=== PATIENT | male | born 1960 | race Caucasian/White ===

== ENCOUNTER 2016-06-18 11:40 | Inpatient (IN) | payer MEDICARE, OTHER ==
[~2016-06-18] VITALS: Ht 185.4 cm; Wt 81.5 kg
[2016-06-18] MEDS ORDERED: AMIL5TAB2 PO (11:54)
[2016-06-18] MEDS ORDERED: CLON0.5T4 PO (11:55)
[2016-06-18] MEDS ORDERED: ATOR10TA65 PO (11:55)
--- NOTE | 2016-06-18 11:58 | ERA ---
ER Documentation Chief Complaint Date/Time DATE: 06/18/16 TIME: 11:58 Chief Complaint Fainted HPI The patient is a 56-year-old male, presenting to the ER because of fainting episode, happened about 30 minutes prior to arrival. He did not fall because he was caught on time. He denies similar symptoms previously, denies blurred vision, diplopia, facial pain, neck pain, chest pain, dyspnea, abdominal pain, vomiting, diarrhea, constipation. 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 Medications Home Meds Reported Medications Mineral Oil* (Fleet* Mineral Oil Enema) 133 Ml Oil, [address] NEEDED Y for CONSTIPATION, ENEMA 06/18/16 Bisacodyl* (Bisacodyl*) 10 Mg Supp, [address] Q24H Y for CONSTIPATION, SUPP 06/18/16 Magnesium Hydroxide* (Milk Of Magnesia*) 400 Mg/5 Ml Oral.susp, 30 ML PO DAILY Y for CONSTIPATION, ML 06/18/16 Docusate Sodium* (Docusate Sodium*) 100 Mg Capsule, 100 MG PO BID Y for ANXIETY , #60 CAP 06/18/16 Alprazolam* (Alprazolam*) 0.5 Mg Tablet, 0.5 MG PO BID Y for ANXIETY, TAB 06/18/16 Acetaminophen* (Acetaminophen*) 650 Mg Tablet, 650 MG PO Q4 Y for PAIN AND OR ELEVATED TEMP, #30 TAB 06/18/16 Polyethylene Glycol* (Polyethylene Glycol*) 17 Gm Powd.pack, 17 GM PO EVERY OTHER DAY, #30 PACKET 06/18/16 Omeprazole* (Omeprazole*) 20 Mg Capsule.dr, 20 MG PO AC BREAKFAST, #30 CAP 06/18/16 Fe Fumarate/Radha/FA/Bcomp,C (Nephron FA Tablet) 1 Each Tablet, 1 EACH PO DAILY, TAB 06/18/16 Levothyroxine Sodium* (Levothyroxine Sodium*) 100 Mcg Tablet, 100 MCG PO BEFORE BREAKFAST, #30 TAB 06/18/16 Hydrochlorothiazide* (Hydrochlorothiazide*) 25 Mg Tab, 25 MG PO DAILY, #30 TAB HOLD FOR SYSTOLIC SYSTOLIC BLOOD PRESSURE LESS THAN 100 06/18/16 Gabapentin* (Gabapentin*) 300 Mg Capsule, 300 MG PO DAILY, #60 CAP 06/18/16 Escitalopram Oxalate* (Escitalopram Oxalate*) 20 Mg Tablet, 20 MG PO DAILY, #30 TAB 06/18/16 Docusate Sodium* (Docusate Sodium*) 100 Mg Capsule, 100 MG PO BID, #60 CAP 06/18/16 Clozapine* (Clozaril*) 100 Mg Tab, 400 MG PO QHS, TAB 06/18/16 Clozapine* (Clozaril*) 25 Mg Tab, 300 MG PO PC LUNCH, TAB 06/18/16 Clozapine* (Clozaril*) 25 Mg Tab, 225 MG PO QAM, TAB 06/18/16 Clonazepam* (Clonazepam*) 0.5 Mg Tablet, 0.25 MG PO TID Y for ANXIETY, TAB 06/18/16 Atorvastatin Calcium (Atorvastatin Calcium) 10 Mg Tablet, 10 MG PO QHS, #30 TAB 06/18/16 Amiloride Hcl* (Amiloride Hcl*) 5 Mg Tablet, 10 MG PO DAILY, #60 TAB 06/18/16 Allergies Allergies: Coded Allergies: No Known Allergy (Unverified , 06/18/16) Physical Exam Vitals Vital Signs Date Time Temp Pulse Resp B/P Pulse Ox O2 Delivery O2 Flow Rate FiO2 06/18/16 16:30 97.9 89 17 132/75 100 Room Air 06/18/16 14:30 97.9 92 16 130/73 100 Room Air 06/18/16 13:55 111/65 103/58 06/18/16 12:30 98.5 87 20 103/59 100 Room Air 06/18/16 11:43 98.5 91 20 101/71 98 Physical Exam Const: No acute distress. Head: Atraumatic. Eyes: Normal Conjunctiva. ENT: Normal External Ears, Nose and Mouth. Neck: Full range of motion. No meningismus. Resp: Clear to auscultation bilaterally. Cardio: Regular rate and rhythm, no murmurs. Abd: Soft, non distended, normal bowel sounds, non tender. Skin: No petechiae or rashes. Back: No midline or flank tenderness. Ext: No cyanosis, or edema. Neur: Awake and alert. No focal deficit Psych: Normal Mood and Affect. Result Diagram: 06/18/16 1300 06/18/16 1245 Results 24 hrs Laboratory Tests Test 06/18/16 12:02 06/18/16 12:45 06/18/16 13:00 06/18/16 14:35 Bedside Glucose 112mg/dL Alanine Aminotransferase (ALT/SGPT) 33IU/L Albumin 4.6g/dl Albumin/Globulin Ratio 1.17 Alkaline Phosphatase 179IU/L Anion Gap 23 Aspartate Amino Transf (AST/SGOT) 19IU/L Blood Urea Nitrogen 72mg/dl Calcium Level 9.8mg/dl Carbon Dioxide Level 18mmol/L Chloride Level 104mmol/L Creatinine 5.11mg/dl Direct Bilirubin 0.00mg/dl Ethyl Alcohol Level < 10.0mg/dl Globulin 3.90g/dl Glucose Level 114mg/dl Indirect Bilirubin 0.0mg/dl Potassium Level 4.7mmol/L Sodium Level 140mmol/L Total Bilirubin 0.0mg/dl Total Protein 8.5g/dl Troponin I < 0.012ng/ml Activated Partial Thromboplast Time 36.5Sec Band Neutrophils % 6.0% Basophils # 0.310^3/ul Basophils % 1.0% Blood Morphology Comment Differential Comment MANUAL DIFF Eosinophils # 0.310^3/ul Eosinophils % 1.0% Hematocrit 38.5% Hemoglobin 12.7g/dl INR International Normalized Ratio 0.98 Lymphocytes # 2.010^3/ul Lymphocytes % 8.0% Mean Corpuscular Hemoglobin 29.2pg Mean Corpuscular Hemoglobin Concent 33.1g/dl Mean Corpuscular Volume 88.3fl Mean Platelet Volume 8.8fl Metamyelocytes # 0.5 Metamyelocytes % 2.0% Monocytes # 2.010^3/ul Monocytes % 8.0% Neutrophils # 18.610^3/ul Neutrophils % 74.0% Nucleated Red Blood Cells # 10^3/ul Nucleated Red Blood Cells % /100WBC Platelet Count 08795^3/UL Prothrombin Time 13.0Sec Prothrombin Time Ratio 1.0 Red Blood Count 4.3610^6/ul Red Cell Distribution Width 15.5% White Blood Count 25.110^3/ul Lactic Acid Level 1.9mmol/L Test 06/18/16 15:49 06/18/16 15:50 06/18/16 15:55 06/18/16 17:50 Bedside Urine Blood Negative Bedside Urine Glucose (UA) Negative Bedside Urine Ketones (LAB) Negative Bedside Urine Leukocyte Esterase (L Trace Bedside Urine Nitrite (LAB) Positive Bedside Urine Protein (LAB) 1+ Bedside Urine pH (LAB) 8.5 Urine Amphetamines Screen NEGATIVE Urine Barbiturates NEGATIVE Urine Benzodiazepines Screen NEGATIVE Urine Cannabinoids NEGATIVE Urine Cocaine Screen NEGATIVE Urine Opiates Screen NEGATIVE Urine Bacteria MANY Urine Bilirubin NEGATIVE Urine Clarity CLOUDY Urine Color LT. YELLOW Urine Glucose NEGATIVE% Urine Hemoglobin NEGATIVE Urine Ketones NEGATIVE Urine Leukocyte Esterase 1+ Urine Microscopic RBC 2-5 (1+)/HPF Urine Microscopic WBC 5-10/HPF Urine Nitrite POSITIVE Urine Specific [place] 1.010 Urine Total Protein TRACE Urine Transitional Epithelial Cells FEW Urine Urobilinogen 0.2 E.U./dL Urine pH 7.5 Lactic Acid Level 1.4mmol/L Current Medications Medications (Trade) Dose Ordered Sig/Maria Elena Route PRN Reason Start Time Stop Time Status Last Admin Dose Admin Vancomycin HCl 250 ml @ 125 mls/hr ONCE IVPB 06/18/16 14:30 06/18/16 16:29 DC 06/18/16 15:19 Piperacillin Sod/ Tazobactam Sod 50 ml @ 100 mls/hr ONCE ONCE IVPB 06/18/16 14:30 06/18/16 14:59 DC 06/18/16 15:03 Sodium Chloride (1/2 NS) 1,000 ml @ 175 mls/hr Q5H43M IV 06/18/16 17:37 UNV IV Flush (NS 3 ml) 3 ml PER PROTOCOL IV 06/18/16 18:00 UNV Ondansetron HCl (Zofran Inj) 4 mg Q6H PRN IV NAUSEA AND/OR VOMITING 06/18/16 18:00 UNV Acetaminophen (Tylenol Tab) 650 mg Q6H PRN PO PAIN LEVEL 1-3 OR FEVER 06/18/16 18:00 UNV Acetaminophen/ Hydrocodone Bitart ([place] (5/325)) 1 tab Q6H PRN PO MODERATE PAIN LEVEL 4-6 06/18/16 18:00 UNV Morphine Sulfate (morphine) 2 mg Q4H PRN IV SEVERE PAIN LEVEL 7-10 06/18/16 18:00 UNV Docusate Sodium (Colace) 200 mg Q12H PO 06/18/16 18:00 UNV Magnesium Hydroxide (Milk Of Mag) 30 ml DAILY PRN PO CONSTIPATION 06/18/16 18:00 UNV Zolpidem Tartrate (Ambien) 5 mg QHS PRN PO SLEEP 06/18/16 18:00 UNV Alprazolam (Xanax) 0.5 mg BID PRN PO ANXIETY 06/18/16 18:00 UNV Atorvastatin Calcium (Lipitor) 10 mg QHS PO 06/18/16 21:00 UNV Bisacodyl (Dulcolax Supp) [address] CONSTIPATION 06/18/16 18:00 UNV Clonazepam (Klonopin) 0.25 mg TID PRN PO ANXIETY 06/18/16 18:00 UNV Clozapine (Clozaril) 225 mg QAM PO 06/19/16 09:00 UNV Clozapine (Clozaril) 300 mg PC LUNCH PO 06/19/16 13:00 UNV Clozapine (Clozaril) 400 mg QHS PO 06/18/16 21:00 UNV Escitalopram Oxalate (Lexapro) 20 mg DAILY PO 06/19/16 09:00 UNV Gabapentin (Neurontin) 300 mg DAILY PO 06/19/16 09:00 UNV Levothyroxine Sodium (Synthroid) 100 mcg BEFORE BREAKFAST PO 06/19/16 07:00 UNV Magnesium Hydroxide (Milk Of Mag) 30 ml DAILY PRN PO CONSTIPATION 06/18/16 18:00 UNV Mineral Oil (Fleet Mineral Oil Enema) [address] CONSTIPATION 06/18/16 18:00 UNV Polyethylene Glycol (Miralax) 17 gm DAILY PO 06/18/16 18:00 UNV Miscellaneous Information 1 each DAILY PO 06/19/16 09:00 UNV Miscellaneous Information 20 mg 20 mg AC BREAKFAST PO 06/19/16 07:00 UNV Ceftriaxone Sodium (Rocephin) 50 ml @ 100 mls/hr Q24H IVPB 06/18/16 18:00 UNV Procedures/MDM EKG: Read by emergency physician Rate/Rhythm: Normal Sinus Rhythm 87 beats per min QRS, ST, T-waves: No ST elevation, no T wave inversion, incomplete right bundle branch block, inferior Q waves Impression: Abnormal EKG [address] [place] [address] Radiology Main Line: [phone] DIAGNOSTIC IMAGING REPORT Patient: SHAWN MADRIGAL : 1960 Age: 56 Sex: M MR #: [id number] DOS: 06/18/16 1202 Ordering MD: LEONOR MELO MD Location: E/R Room/Bed: PROCEDURE: Chest Radiograph. CLINICAL INDICATION: Syncope TECHNIQUE: Single frontal chest radiograph. COMPARISON: None available FINDINGS: The cardiomediastinal silhouette is within normal limits. No infiltrate or effusion is seen. The bones are intact. IMPRESSION: 1. Unremarkable chest radiograph. RPTAT: KK .Charli Summers MD, MD Date Time Electronically viewed and signed by .Charli Summers MD, MD on 2015 12:36 .B/ CC: LEONOR MELO MD [place] [address] Radiology Main Line: [phone] DIAGNOSTIC IMAGING REPORT Patient: SHAWN MADRIGAL : 1960 Age: 56 Sex: M MR #: [id number] DOS: 06/18/16 1202 Ordering MD: LEONOR MELO MD Location: E/R Room/Bed: PROCEDURE: CT Brain without contrast. CLINICAL INDICATION: Neurologic deficit TECHNIQUE: A CT of the brain was performed on multidetector high-resolution CT scanner utilizing axial sections from the skull base through the vertex without contrast. DOSE: CTDI = 44 mGy and the DLP = 720 mGy-cm. COMPARISON: None available FINDINGS: No acute intracranial hemorrhage, significant mass effect or midline shift. Patchy hypoattenuation of the cerebral white matter is age indeterminate but may represent mild subacute to chronic microvascular ischemic changes. Prominence of the cortical sulci and ventricles are related to mild cerebral volume loss. No significant opacification of the visualized paranasal sinuses or mastoids. IMPRESSION: No acute intracranial hemorrhage or significant mass effect. Mild subacute to chronic microvascular disease and mild volume loss. RPTAT: AA .Josiah Martin MD, Date Time Electronically viewed and signed by .Josiah Martin MD, on 06/18/2016 12:50 .T/ CC: LEONOR MELO MD MEDICAL MAKING DECISION: The patient is a 56-year-old male, presenting with acute syncope, acute cystitis, acute urinary retention. He voided then had a Samuel catheter that drained out about 450 mL of urine with good response. He was treated with vancomycin IV, Zosyn IV. Accu-Chek upon arrival was 112. The differential diagnoses considered include but are not limited to bradyarrhythmia , tachyarrhythmias, aortic outflow obstruction, neurogenic including subarachnoid hemorrhage, orthostatic hypotension and all of its causes, hypoglycemia, dysautonomia, medications , pyelonephritis, pneumonia, cystitis. Departure Diagnosis: Primary Impression: Syncope Additional Impressions: Acute cystitis Acute urinary retention Anemia Condition: Stable Comments I discussed the findings with the patient. I discussed the patient with the on- call physician Dr. Meyers who was made aware of the lab, the treatment, the patient condition. The patient is admitted to telemetry at 2:20 PM LEONOR MELO MD Jun 18, 2016 11:58
[2016-06-18] MEDS ORDERED: CLZP100T PO (12:03)
[2016-06-18] MEDS ORDERED: CLOZ25TA23 PO ×2 (12:03)
[2016-06-18] MEDS ORDERED: DOCU-159 PO ×2 (12:07→12:14)
[2016-06-18] MEDS ORDERED: ESCI20TA38 PO (12:07)
[2016-06-18] MEDS ORDERED: GABA300C16 PO (12:08)
[2016-06-18] MEDS ORDERED: HYD25 PO (12:10)
[2016-06-18] MEDS ORDERED: LEVO100T87 PO (12:10)
[2016-06-18] MEDS ORDERED: OMEP20CA16 PO (12:11)
[2016-06-18] MEDS ORDERED: FE F1TAB7 PO (12:11)
[2016-06-18] MEDS ORDERED: POLY17PO3 PO (12:12)
[2016-06-18] MEDS ORDERED: ACET-2047 PO (12:13)
[2016-06-18] MEDS ORDERED: ALPR0.5T6 PO (12:13)
[2016-06-18] MEDS ORDERED: MAGN400O4 PO (12:15)
[2016-06-18] MEDS ORDERED: DULR PR (12:15)
[2016-06-18] MEDS ORDERED: FLEETOIL PR (12:16)
--- NOTE | 2016-06-18 12:36 | RADRPT ---
PROCEDURE: Chest Radiograph. CLINICAL INDICATION: Syncope TECHNIQUE: Single frontal chest radiograph. COMPARISON: None available FINDINGS: The cardiomediastinal silhouette is within normal limits. No infiltrate or effusion is seen. Th e bones are intact. IMPRESSION: 1. Unremarkable chest radiograph. RPTAT: KK .Charli Summers MD, Date Time Electronically viewed and signed by .Charli Summers MD, on 06/18/2016 12:36 .B/
--- NOTE | 2016-06-18 12:50 | RADRPT ---
PROCEDURE: CT Brain without contrast. CLINICAL INDICATION: Neurologic deficit TECHNIQUE: A CT of the brain was performed on multidetector high-resolution CT scanner utilizing a xial sections from the skull base through the vertex without contrast. DOSE: CTDI = 44 mGy and the DLP = 720 mGy-cm. COMPARISON: None available FINDINGS: No acute intracranial hemorrhage, significant mass effect or midline shift. Patchy hypoattenuation o f the cerebral white matter is age indeterminate but may represent mild subacute to chronic microvas cular ischemic changes. Prominence of the cortical sulci and ventricles are related to mild cerebra l volume loss. No significant opacification of the visualized paranasal sinuses or mastoids. IMPRESSION: No acute intracranial hemorrhage or significant mass effect. Mild subacute to chronic microvascular disease and mild volume loss. RPTAT: AA .Josiah Martin MD, Date Time Electronically viewed and signed by .Josiah Martin MD, MD on 06/18/2016 12:50 .T/
[2016-06-18 13:15] LABS: HEMATOCRIT 38.5 % (42.0-52.0); HEMOGLOBIN 12.7 g/dl (14.0-18.0); MEAN CORPUSCULAR HEMOGLOBIN 29.2 pg (29.0-33.0); MEAN CORPUSCULAR HGB CONC 33.1 g/dl (32.0-37.0); MEAN CORPUSCULAR VOLUME 88.3 fl (82.0-101.0); MEAN PLATELET VOLUME 8.8 fl (7.4-10.4); PLATELET COUNT 253 10^3/UL (140-440); RED BLOOD COUNT 4.36 10^6/ul (4.70-6.10); RED CELL DISTRIBUTION WIDTH 15.5 % (11.5-14.5); UNCORRECTED WBC 25.1 10^3/ul (4.8-10.8); WHITE BLOOD COUNT 25.1 10^3/ul (4.8-10.8)
[2016-06-18 13:18] LABS: CONDITION 1; LH ANALYZER COMMENTS 1; SUSPECT 1
[2016-06-18 13:24] LABS: INR 0.98
[2016-06-18 13:24] LABS: ALBUMIN 4.6 g/dl (3.3-4.9); CHLORIDE 104 mmol/L (97-110)
[2016-06-18 13:25] LABS: PARTIAL THROMBOPLASTIN TIME 36.5 Sec (25.0-35.0)
[2016-06-18 13:25] LABS: POTASSIUM 4.7 mmol/L (3.5-5.1); SODIUM 140 mmol/L (135-144)
[2016-06-18 13:27] LABS: ALBUMIN/GLOBULIN RATIO 1.17; ANION GAP 23 (8-16); ASPARTATE AMINO TRANSFERASE 19 IU/L (15-46); CARBON DIOXIDE 18 mmol/L (21-31); CREATININE 5.11 mg/dl (0.61-1.24); TOTAL PROTEIN 8.5 g/dl (6.1-8.1)
[2016-06-18 13:28] LABS: ALANINE AMINOTRANSFERASE 33 IU/L (13-69); ALKALINE PHOSPHATASE 179 IU/L (42-121); BLOOD UREA NITROGEN 72 mg/dl (7-20); CALCIUM 9.8 mg/dl (8.4-10.2); GLUCOSE 114 mg/dl (70-220)
[2016-06-18 13:32] LABS: BASOPHIL # 0.3 10^3/ul (0.0-0.1); EOSINOPHILS # 0.3 10^3/ul (0.0-0.5); NEUTROPHIL # 18.6 10^3/ul (1.6-7.5)
[2016-06-18 13:35] LABS: ETHANOL < 10.0 mg/dl
[2016-06-18 13:41] LABS: TROPONIN-I < 0.012 ng/ml (0.00-0.12)
[2016-06-18] MEDS ORDERED: PIPER-TAZO 2.25 GM (PMX) 50 ML IVPB ONE (14:30)
[2016-06-18] MEDS ORDERED: VANCOMYCIN 1 GM (PMX) 250 ML IVPB SCH (14:30)
[2016-06-18 15:50] LABS: URINE BLOOD (Dip) POC Negative (NEGATIVE)
[2016-06-18 16:02] LABS: ADD UMIC YES; URINE BILIRUBIN (Dip) NEGATIVE (NEGATIVE); URINE BLOOD (Dip) NEGATIVE (NEGATIVE); URINE COLOR LT. YELLOW (YELLOW); URINE GLUCOSE (Dip) NEGATIVE (NEGATIVE); URINE KETONES (Dip) NEGATIVE (NEGATIVE); URINE LEUKOCYTE ESTERASE (Dip) 1+ (NEGATIVE); URINE NITRITE (Dip) POSITIVE (NEGATIVE); URINE TOTAL PROTEIN (Dip) TRACE (NEGATIVE); URINE UROBILINOGEN (Dip) 0.2 E.U./dL (0.1-1.0)
[2016-06-18 16:16] LABS: BACTERIA,URINE MANY
[2016-06-18 16:17] LABS: TRANSITIONAL EPI CELLS,URINE FEW; URINE RBCS 2-5 (1+) /HPF (0)
[2016-06-18 16:24] LABS: BARBITURATES NEGATIVE (NEGATIVE); BENZODIAZEPINES NEGATIVE (NEGATIVE); CANNABINOIDS NEGATIVE (NEGATIVE); COCAINE NEGATIVE (NEGATIVE); OPIATES NEGATIVE (NEGATIVE)
[2016-06-18] MEDS ORDERED: ALPRAZOLAM 0.5 MG TAB PO PRN (18:00)
[2016-06-18] MEDS ORDERED: MAGNESIUM HYDROXIDE 30ML CUP PO PRN ×2 (18:00)
[2016-06-18] MEDS ORDERED: ACETAMINOPHEN 325 MG TAB PO PRN (18:00)
[2016-06-18] MEDS ORDERED: MINERAL OIL 133 ML ENEMA PR PRN (18:00)
[2016-06-18] MEDS ORDERED: NACL 0.9% 3 ML SYG IV SCH (18:00)
[2016-06-18] MEDS ORDERED: ZOLPIDEM 5 MG TAB PO PRN (18:00)
[2016-06-18] MEDS ORDERED: clonAZEPAM 0.5 MG TAB PO PRN (18:00)
[2016-06-18] MEDS ORDERED: morphine 2 MG INJ IV PRN (18:00)
[2016-06-18] MEDS ORDERED: ONDANSETRON 4 MG INJ IV PRN (18:00)
[2016-06-18] MEDS ORDERED: HYDROCODONE/APAP (5/325) TAB PO PRN (18:00)
[2016-06-18] MEDS ORDERED: BISACODYL 10 MG SUPP PR PRN (18:00)
--- NOTE | 2016-06-18 18:57 | HP ---
DATE OF ADMISSION: 06/18/2016 CHIEF COMPLAINT: Syncope. HISTORY OF PRESENT ILLNESS: The patient is a 56-year-old male with history of schizophrenia who res ides in a board and care. The patient also has a history of hypertension, hypothyroidism and dyslip idemia. The patient presents with a syncopal episode at his board and care. He states that he was feeling dizzy prior to onset. He does state that he has a burning sensation when he urinates, is no t sure how long this has been going on for. Denies any history of syncope. The patient is somewhat of a poor historian, and part of his medical history was obtained from review of his home medicatio ns. The patient has no other complaints at this time. He denies any nausea, vomiting, fever, chill s, cough, chest pain or shortness of breath. PAST MEDICAL HISTORY: Hypertension, schizophrenia, dyslipidemia, hypothyroidism. PAST SURGICAL HISTORY: Denies. HOME MEDICATIONS: 1. Tylenol. 2. Xanax. 3. Amiloride. 4. Atorvastatin. 5. Clonazepam. 6. Clozaril (clozapine). 7. Colace. 8. Lexapro. 9. Gabapentin. 10. Hydrochlorothiazide. 11. Synthroid. 12. Milk of magnesia. 13. Mineral oil. 14. Fleet enema. 15. Omeprazole. ALLERGIES: NO KNOWN DRUG ALLERGIES. FAMILY HISTORY: Denies. SOCIAL HISTORY: Denies any alcohol, tobacco or drug abuse. REVIEW OF SYSTEMS: A 12-point review of systems difficult to obtain but appears to be negative. PHYSICAL EXAMINATION: VITAL SIGNS: Temperature is 98.5, pulse 87, respiratory rate is 20, BP is 111/65, saturation 100% o n room air. GENERAL: No acute distress, alert. HEENT: Normocephalic, atraumatic. Pupils equal, round, reactive to light. CHEST: Clear to auscultation. CARDIOVASCULAR: Regular rate, rhythm. ABDOMEN: Nondistended, nontender, soft. EXTREMITIES: No clubbing, cyanosis, edema. LABORATORIES: White count is 25.1, hemoglobin is 12.7, platelets are 263. Chemistry: Sodium is 14 0, potassium is 4.7, chloride is 104, carbon dioxide is 18, anion gap is 23, BUN 72, creatinine is 5 .11, glucose is 114, alkaline phosphatase is 179. INR is 0.98. UA: Cloudy, positive nitrites, 1+ leukocyte esterase, 5 to 10 WBCs. Toxicology is negative. DIAGNOSTICS: Chest x-ray shows unremarkable chest. Brain CT shows no acute intracranial process. There is mild subacute chronic microvascular disease with mild volume loss. ASSESSMENT AND PLAN: 1. Sepsis secondary to urinary tract infection. Will treat empirically with Rocephin IV. Will obt ain a urine culture. 2. Syncope, likely secondary to dehydration and sepsis. Will treat with IV fluids and antibiotics. Will also obtain a carotid ultrasound and 2D echo to rule out cardiac and vascular etiologies of t he syncopal episode. 3. Acute versus chronic kidney disease. The patient's baseline renal function is not known. The p atient may have prerenal acute kidney injury as he does appear severely dehydrated. Will treat with IV fluids and monitor in the a.m. If creatinine continues to be elevated with suspicion for altern ate causes of his acute kidney injury, will consult Nephrology. 4. History of schizophrenia. Continue home medications. 5. History of hypertension. Will hold the patient's home antihypertensives as his blood pressure i s low at this time. Of note, his hypotension may also be a part of the etiology for his syncopal ep isode. 6. Prophylaxis. SCDs. Dictated By: SIENNA RICHARDSON/IVONE Conf#: [id number] DID#: [id number]
--- NOTE | 2016-06-18 19:36 | RADRPT ---
PROCEDURE: US Carotids. CLINICAL INDICATION: Syncope. TECHNIQUE: Multiple sonographic of the carotid arteries were obtained utilizing adkins scale imaging . Color and Doppler imaging was performed. The images were reviewed on a PACS workstation. COMPARISON: None. FINDINGS: Location:Right (cm/s)Left (cm/s) [id number] Prox ICA74 75 Mid [id number] 75 Dist ICA93 53 ECA66 57 ICA/CCA:1.6 1.0 Antegrade flow is seen within the vertebral arteries, bilaterally. There is no substantial plaque. IMPRESSION: No evidence of hemodynamically significant stenosis or occlusion of the bilateral extracranial carot id arteries. RPTAT: HLST .Elizabet Siu MD, Date Time Electronically viewed and signed by .Elizabet Siu MD, on 06/18/2016 19:35 .T/
[2016-06-18] MEDS: CEFTRIAXONE 1 GM/50 ML (PMX) 50 ML IVPB SCH (19:51)
[2016-06-18] MEDS: SOD CHLORIDE 0.45% 1,000 ML IV SCH (19:52)
[2016-06-18] MEDS ORDERED: CLOZAPINE 25 MG TAB PO SCH (21:00)
[2016-06-19] VITALS (13 sets, daily range): BP systolic 108–116; BP diastolic 64–76; PULSE 88–91; RESP 18–22; TEMP 98.1; Ht 185.4 cm; Wt 81.5 kg
[2016-06-19] MEDS: DOCUSATE SODIUM 100 MG CAP PO SCH ×3 (00:18→17:40)
[2016-06-19] MEDS: POLYETHYLENE GLYCOL 17 GM PACKET PO SCH ×2 (00:18→08:51)
[2016-06-19] MEDS: ATORVASTATIN 10 MG TAB PO SCH ×2 (00:18→21:22)
[2016-06-19] MEDS: SOD CHLORIDE 0.45% 1,000 ML IV SCH ×4 (00:19→21:22)
[2016-06-19] MEDS ORDERED: NON-FORMULARY/PATIENT OWN MED (Omeprazole* 20 MG) PO SCH (07:00)
[2016-06-19 07:35] LABS: BASOPHIL # 0.1 10^3/ul (0.0-0.1); BASOPHILS % 0.3 % (0.0-2.0); EOSINOPHILS # 0.3 10^3/ul (0.0-0.5); EOSINOPHILS % 1.7 % (0.0-7.0); HEMATOCRIT 37.4 % (42.0-52.0); HEMOGLOBIN 12.3 g/dl (14.0-18.0); LYMPHOCYTES # 2.9 10^3/ul (0.8-2.9); MEAN CORPUSCULAR HEMOGLOBIN 29.2 pg (29.0-33.0); MEAN CORPUSCULAR VOLUME 88.5 fl (82.0-101.0); MEAN PLATELET VOLUME 9.5 fl (7.4-10.4); MONOCYTE # 0.9 10^3/ul (0.3-0.9); MONOCYTES % 4.4 % (0.0-11.0); NEUTROPHIL # 15.4 10^3/ul (1.6-7.5); NEUTROPHILS % 78.6 % (39.0-77.0); PLATELET COUNT 256 10^3/UL (140-440); RED BLOOD COUNT 4.22 10^6/ul (4.70-6.10); RED CELL DISTRIBUTION WIDTH 15.3 % (11.5-14.5); UNCORRECTED WBC 19.5 10^3/ul (4.8-10.8); WHITE BLOOD COUNT 19.5 10^3/ul (4.8-10.8)
[2016-06-19 07:45] LABS: ALBUMIN 4.3 g/dl (3.3-4.9); CONDITION 1; LH ANALYZER COMMENTS 1
[2016-06-19 07:46] LABS: POTASSIUM 4.4 mmol/L (3.5-5.1)
[2016-06-19 07:47] LABS: CREATININE 4.39 mg/dl (0.61-1.24)
[2016-06-19 07:48] LABS: ALBUMIN/GLOBULIN RATIO 1.13; PHOSPHORUS 6.1 mg/dl (2.5-4.9); TOTAL PROTEIN 8.1 g/dl (6.1-8.1)
[2016-06-19] MEDS: PANTOPRAZOLE (EC) 40 MG TAB PO SCH (07:48)
[2016-06-19 07:49] LABS: MAGNESIUM 2.7 mg/dl (1.7-2.5)
[2016-06-19] MEDS: LEVOTHYROXINE 100 MCG TAB PO SCH (07:49)
[2016-06-19] MEDS: GABAPENTIN 300 MG CAP PO SCH (08:51)
[2016-06-19] MEDS: ESCITALOPRAM 10 MG TAB PO SCH (08:52)
[2016-06-19] MEDS ORDERED: CLOZAPINE 25 MG TAB PO SCH ×2 (09:00→13:00)
[2016-06-19] MEDS: CLOZAPINE 100 MG TABLET PO SCH ×2 (13:13→23:05)
--- NOTE | 2016-06-19 16:41 | PN ---
Date/Time of Note Date/Time of Note DATE: 06/19/16 TIME: 16:29 Assessment/Plan VTE Prophylaxis VTE Prophylaxis Intervention: SCD's Assessment/Plan Chief Complaint/Hosp Course 1. Sepsis secondary to urinary tract infection Continue to treat empirically with Rocephin IV Urine culture at this point shows gram-negative rods 2. Syncope likely secondary to hypotension and/or dehydration and/or sepsis Carotid ultrasound shows no significant stenosis, follow-up on 2D echo Continue IV fluids and antibiotics 3. Acute versus chronic kidney disease-improving Likely secondary to dehydration, hold p.o. diuretics and continue IV fluids Nephrology consultation 4. History of schizophrenia Continue home medications. 5. History of hypertension Will continue to hold the patient's home antihypertensives as his blood pressure is low at this time 6. Prophylaxis. SCDs Problems: Subjective 24 Hr Interval Summary Constitutional: no complaints Exam/Review of Systems Vital Signs Vitals Vital Signs Date Time Temp Pulse Resp B/P Pulse Ox O2 Delivery O2 Flow Rate FiO2 06/19/16 16:13 88 06/19/16 12:16 97.4 21 116/66 100 06/19/16 05:30 Room Air Exam Constitutional: alert Respiratory: clear to auscultation Cardiovascular: regular rate and rhythm Gastrointestinal: distended, soft Musculoskeletal: nl extremities to inspection Results Result Diagram: 06/19/16 0603 06/19/16 0603 Results 24 hrs Laboratory Tests Test 06/18/16 17:50 06/18/16 20:20 06/19/16 06:03 Lactic Acid Level 1.4 1.3 Alanine Aminotransferase (ALT/SGPT) 33 Albumin 4.3 Albumin/Globulin Ratio 1.13 Alkaline Phosphatase 164 H Anion Gap 20 H Aspartate Amino Transf (AST/SGOT) 23 Basophils # 0.1 Basophils % 0.3 Blood Morphology Comment Blood Urea Nitrogen 68 H Calcium Level 9.0 Carbon Dioxide Level 18 L Chloride Level 105 Creatinine 4.39 H Direct Bilirubin 0.00 Eosinophils # 0.3 Eosinophils % 1.7 Globulin 3.80 H Glucose Level 105 Hematocrit 37.4 L Hemoglobin 12.3 L Hemoglobin A1c 4.9 Indirect Bilirubin 0.0 Lymphocytes # 2.9 Lymphocytes % 15.0 Magnesium Level 2.7 H Mean Corpuscular Hemoglobin 29.2 Mean Corpuscular Hemoglobin Concent 33.0 Mean Corpuscular Volume 88.5 Mean Platelet Volume 9.5 Monocytes # 0.9 Monocytes % 4.4 Neutrophils # 15.4 H Neutrophils % 78.6 H Nucleated Red Blood Cells # 0.0 Nucleated Red Blood Cells % 0.0 Phosphorus Level 6.1 H Platelet Count 256 Potassium Level 4.4 Red Blood Count 4.22 L Red Cell Distribution Width 15.3 H Sodium Level 139 Total Bilirubin 0.0 L Total Protein 8.1 White Blood Count 19.5 #H Medications Medications Current Medications Sodium Chloride (1/2 NS) 1,000 ml @ 175 mls/hr Q5H43M IV Last administered on 06/19/16at 07:49; Admin Dose 175 MLS/HR; Start 06/18/16 at 17:37; Stop at 16:28 Ondansetron HCl (Zofran Inj) 4 mg Q6H PRN IV NAUSEA AND/OR VOMITING; Start at 18:00 Acetaminophen (Tylenol Tab) 650 mg Q6H PRN PO PAIN LEVEL 1-3 OR FEVER; Start 06/18/16 at 18:00 Acetaminophen/ Hydrocodone Bitart ([place] (5/325)) 1 tab Q6H PRN PO MODERATE PAIN LEVEL 4-6; Start 06/18/16 at 18:00 Morphine Sulfate (morphine) 2 mg Q4H PRN IV SEVERE PAIN LEVEL 7-10; Start at 18:00 Docusate Sodium (Colace) 200 mg Q12H PO Last administered on 06/19/16at 07:48; Admin Dose 200 MG; Start 06/18/16 at 18:00 Magnesium Hydroxide (Milk Of Mag) 30 ml DAILY PRN PO CONSTIPATION; Start 06/18 at 18:00 Zolpidem Tartrate (Ambien) 5 mg QHS PRN PO SLEEP; Start 06/18/16 at 18:00 Alprazolam (Xanax) 0.5 mg BID PRN PO ANXIETY; Start 06/18/16 at 18:00 Atorvastatin Calcium (Lipitor) 10 mg QHS PO Last administered on 06/19/16at 00: 18; Admin Dose 10 MG; Start 06/18/16 at 21:00 Bisacodyl (Dulcolax Supp) 10 mg Q24H PRN [place] CONSTIPATION; Start 06/18/16 at 18 :00 Clonazepam (Klonopin) 0.25 mg TID PRN PO ANXIETY; Start 06/18/16 at 18:00 Escitalopram Oxalate (Lexapro) 20 mg DAILY PO Last administered on 06/19/16at 08:52; Admin Dose 20 MG; Start 06/19/16 at 09:00 Gabapentin (Neurontin) 300 mg DAILY PO Last administered on 06/19/16at 08:51; Admin Dose 300 MG; Start 06/19/16 at 09:00 Magnesium Hydroxide (Milk Of Mag) 30 ml DAILY PRN PO CONSTIPATION; Start 06/18 at 18:00 Mineral Oil (Fleet Mineral Oil Enema) 133 ml DAILY PRN [place] CONSTIPATION; Start 06/18/16 at 18:00 Polyethylene Glycol (Miralax) 17 gm DAILY PO Last administered on 06/19/16at 08 :51; Admin Dose 17 GM; Start 06/18/16 at 18:00 Multivit/Ca Carb/ B Cmplx/FA/Prenat 1 tab 1 tab DAILY PO ; Start 06/19/16 at 15 :00 Ceftriaxone Sodium (Rocephin) 50 ml @ 100 mls/hr Q24H IVPB Last administered on 06/18/16at 19:51; Admin Dose 100 MLS/HR; Start 06/18/16 at 18:00 Pantoprazole (Protonix Tab) 40 mg DAILY@06 PO Last administered on 06/19/16at 07:48; Admin Dose 40 MG; Start 06/19/16 at 06:00 Clozapine (Clozaril) 400 mg QHS PO ; Start 06/18/16 at 21:00; Status Future hold Clozapine (Clozaril) 225 mg QAM PO ; Start 06/20/16 at 09:00 Influenza Virus Vaccine (Fluzone) 0.5 ml ONCE ONCE IM* ; Start 06/20/16 at 09: 00; Stop 06/20/16 at 09:01 SIENNA COTTO Jun 19, 2016 16:41
[2016-06-19] MEDS: MULTIVIT/CA CARB/B CMPLX/FA TAB PO SCH (17:40)
[2016-06-19] MEDS: CEFTRIAXONE 1 GM/50 ML (PMX) 50 ML IVPB SCH (17:46)
[2016-06-20] VITALS (14 sets, daily range): BP systolic 62–116; BP diastolic 28–71; PULSE 86–97; RESP 20–21
[2016-06-20] MEDS: SOD CHLORIDE 0.45% 1,000 ML IV SCH (03:00)
--- NOTE | 2016-06-20 03:31 | RADRPT ---
PROCEDURE: ULTRASOUND RETROPERITONEUM CLINICAL INDICATION: 56-year-old male with acute renal insufficiency. TECHNIQUE: Multiple sonographic images of the retroperitoneum were obtained. The images were revi ewed on a PACS workstation. COMPARISON: None. FINDINGS: The kidneys are diffusely heterogeneous. The right kidney measures 10.8 x 6.1 x 5.0 cm. The left kid constantino measures 10.5 x 5.9 x 4.6 cm. There are small calculi within the kidneys bilaterally. There is a small right mid renal cyst measuring 9 x 7 mm. There is mild left-sided hydronephrosis. The bladd er is without internal echoes or shadowing stones. IMPRESSION: 1. Mild left-sided hydronephrosis. 2. Small bilateral renal calculi. 3. Right mid renal cyst. .Demetrio Peterson MD, Date Time Electronically viewed and signed by .Demetrio Peterson MD, on 06/20/2016 03:30 .M/
[2016-06-20] MEDS: LEVOTHYROXINE 100 MCG TAB PO SCH (06:21)
[2016-06-20] MEDS: PANTOPRAZOLE (EC) 40 MG TAB PO SCH (06:21)
[2016-06-20] MEDS: DOCUSATE SODIUM 100 MG CAP PO SCH ×2 (06:22→18:15)
--- NOTE | 2016-06-20 06:36 | CONS ---
DATE OF ADMISSION: 06/18/2016 DATE OF CONSULTATION: 06/19/2016 TYPE OF CONSULTATION: Nephrology. REASON FOR CONSULTATION: Acute kidney injury. REQUESTING PHYSICIAN: Fabio Kirkland MD HISTORY OF PRESENT ILLNESS: This is a 56-year-old male with past medical history of schizophrenia, history of hypertension, dyslipidemia, hypothyroidism who resides at a [facility] facility and c isatu into [facility] after having a syncopal episode. The patient's history begins several weeks ago when he has had persistent ongoing weight loss. The patient had weakness during this time with poor appetite. On day prior to admission, patient states he was feeling dizzy. He s tated also that he was having episodes of dysuria. The patient had a syncopal episode and was broug ht in by paramedics to the emergency room. Upon arrival to the emergency room, patient was noted to be hypotensive with systolic pressure in the low 100s. The patient had laboratory data drawn which showed a white count of 25,000, hemoglobin 12.7 as well as BUN 72, creatinine 5.1. Chest x-ray obt ained showed no acute findings. The patient ____ no acute findings. The patient's urinalysis ____. The patient was started on IV antibiotics, IV fluids and admitted onto telemetry for evaluation. While on telemetry, patient has been stable with no episodes or further reports of hemoptysis, hemat emesis, hematochezia. In terms in patient's renal function, patient states he has no previous history of renal failure or chronic kidney disease. The patient denies any recent rashes, denies any frothy urine, denies any _ ___. The patient does report taking diuretics including hydrochlorothiazide and ____. PAST MEDICAL HISTORY: As stated above. History of hypertension, history of schizophrenia, history of dyslipidemia, history of ____. Questionable history of diabetes insipidus per patient. PAST SURGICAL HISTORY: None. HOME MEDICATIONS: Reviewed. ALLERGIES: NO KNOWN DRUG ALLERGIES. FAMILY HISTORY: No family history ____. SOCIAL HISTORY: He doesn't drink, smoke or do drugs. REVIEW OF SYSTEMS: A 14-point review of systems was conducted. Pertinent positives stated in HPI, otherwise negative. PHYSICAL EXAMINATION: VITAL SIGNS: Blood pressure is 100/62, respirations 18, pulse ____, temperature 98.6. HEENT: Head is normocephalic. Pupils equal, reactive to light. The patient had temporal wasting. NECK: Supple. ABDOMEN: Soft, nontender to palpation. No rebound, guarding. EXTREMITIES: No clubbing, cyanosis or edema. DERMATOLOGIC: Positive for ____ the patient's face. NEUROLOGIC: No focal deficits ____ weakness. LABORATORY DATA: Sodium ____, potassium 4.4, chloride 105, bicarbonate 18, BUN ____, creatinine 4.3 9, ____ magnesium 2.7. White count 19.3, hemoglobin ____, hematocrit ____, platelet count is 257. Urinalysis shows 5 to 10 WBCs ____ positive nitrites. IMAGING STUDIES: Stated in HPI. ASSESSMENT AND PLAN: This is a 56-year-old male who presents to emergency department with acute kid constantino injury with ____ baseline creatinine. ____ secondary to volume depletion ____ acute kidney inju ry, hemodynamics. The patient's urinalysis shows no evidence of ____, positive epithelial cells whi ch can be seen in ____ injury. There is low suspicion for ____. Plan at this point is to get a ivett al ultrasound to rule out obstruction ____. Will continue current treatment plan of IV hydration, c ontinue IV antibiotics. Would also check ____, repeat urinalysis. Otherwise, continue ____ renally dose medications, avoid nephrotoxins. There is no immediate need for ____ replacement therapy at t his time. 2. ____ secondary to volume depletion ____ use, extensive. Continue current treatment plan, IV flu ids, IV antibiotics, monitor closely. 3. Anemia, likely of chronic disease. Continue to monitor H and H levels. 4. ____. Will check a ____ level. 5. Sepsis secondary to urinary tract infection. Continue current treatment plan. Continue IV flui ds, IV antibiotics, monitor closely. 6. Syncope. Etiology is likely secondary to volume depletion, sepsis. The patient's ____ CT scan is negative. ____ is pending. Continue current ____, continue ____, continue fluids. Follow up Cardiology. 7. History of schizophrenia. Continue current psychotropic medications. 8. History of hypertension. The patient currently hypotension. Continue to monitor. Thank you, Dr. Kirkland, for this interesting consultation. It will be a pleasure to follow patient with you throughout the hospital course. Dictated By: RADHAMES YIP/IVONE Conf#: [id number] DID#: [id number]
[2016-06-20 07:10] LABS: BASOPHIL # 0.1 10^3/ul (0.0-0.1); BASOPHILS % 0.8 % (0.0-2.0); EOSINOPHILS # 0.3 10^3/ul (0.0-0.5); EOSINOPHILS % 1.9 % (0.0-7.0); HEMOGLOBIN 11.4 g/dl (14.0-18.0); LYMPHOCYTES # 2.9 10^3/ul (0.8-2.9); LYMPHOCYTES % 16.3 % (15.0-51.0); MEAN CORPUSCULAR HEMOGLOBIN 29.5 pg (29.0-33.0); MEAN CORPUSCULAR HGB CONC 33.5 g/dl (32.0-37.0); MEAN CORPUSCULAR VOLUME 88.1 fl (82.0-101.0); MEAN PLATELET VOLUME 8.9 fl (7.4-10.4); MONOCYTES % 5.9 % (0.0-11.0); NEUTROPHIL # 13.2 10^3/ul (1.6-7.5); NEUTROPHILS % 75.1 % (39.0-77.0); PLATELET COUNT 227 10^3/UL (140-440); RED BLOOD COUNT 3.86 10^6/ul (4.70-6.10); RED CELL DISTRIBUTION WIDTH 15.1 % (11.5-14.5); UNCORRECTED WBC 17.5 10^3/ul (4.8-10.8); WHITE BLOOD COUNT 17.5 10^3/ul (4.8-10.8)
[2016-06-20 07:21] LABS: POTASSIUM 4.2 mmol/L (3.5-5.1)
[2016-06-20 07:23] LABS: CONDITION 1; LH ANALYZER COMMENTS 1
[2016-06-20 07:24] LABS: CREATININE 3.72 mg/dl (0.61-1.24)
[2016-06-20 07:24] LABS: ADD UMIC YES; URINE BILIRUBIN (Dip) NEGATIVE (NEGATIVE); URINE BLOOD (Dip) TRACE (NEGATIVE); URINE COLOR LT. YELLOW (YELLOW); URINE GLUCOSE (Dip) NEGATIVE (NEGATIVE); URINE KETONES (Dip) NEGATIVE (NEGATIVE); URINE LEUKOCYTE ESTERASE (Dip) 1+ (NEGATIVE); URINE NITRITE (Dip) NEGATIVE (NEGATIVE); URINE TOTAL PROTEIN (Dip) NEGATIVE (NEGATIVE); URINE UROBILINOGEN (Dip) 0.2 E.U./dL (0.1-1.0)
[2016-06-20 07:25] LABS: CALCIUM 8.2 mg/dl (8.4-10.2)
--- NOTE | 2016-06-20 07:36 | RADRPT ---
Echocardiogram Report Patient Name: SHAWN MADRIGAL Gender: Male Date: 1960 Study Date: 19-Jun-2016 [employer] Fab[employer]ator: Marilia Goodwin [facility] Location: 5567 Ref. Physician: SIENNA COTTO Quality: Technically Difficult Study Procedures: Transthoracic echocardiogram with complete 2D, M-Mode, and doppler examination. Indications: Syncope. 2D/M Mode Doppler Measurement Value Normal Ranges Measurement Value Normal Ranges LVIDd 2D 4.3 3.5 - 5.6 cm AV Peak Lux 0.9 m/sec LVIDs 2D 1.8 2.1 - 4.1 cm AV Peak PG 3.0 mmHg FS 2D 57.9 % LVOT Peak Lux 0.7 m/sec LVPWd 2D 0.8 0.6 - 1.1 cm LVOT Peak PG 2.0 mmHg IVSd 2D 0.8 0.6 - 1.1 cm MV E Peak Lux 0.5 m/sec IVS/LVPW 2D 1.0 MV A Peak Lux 0.6 m/sec AoR Diam 2D 3.1 2.0 - 3.7 cm MV E/A 0.8 LA/Ao 2D 1 0 - 1 MV Decel Time 151 msec EDV 2D 79.5 cm3 MV E/A 0.8 ESV 2D 5.9 cm3 TR Peak Lux 1.9 m/sec LA Dimen 2D 3.0 2.3 - 4.0 cm TR Peak PG 15.0 mmHg RVSP 23.0 mmHg Findings Left Ventricle: Normal left ventricular systolic function. Normal left ventricular cavity size. Normal left ventricular wall thickness. Ejection fraction is visually estimated at 60 %. Tissue Doppler/Mitral Doppler indices are consistent with impaired relaxation (Stage I diastolic dysfunction). Right Ventricle: Normal right ventricular size. Normal right ventricular systolic function. Left Atrium: The left atrium is normal in size. Right Atrium: The right atrium is normal in size. Mitral Valve: Mitral valve leaflets appear mildly thickened. Mild mitral annular calcification. Trace mitral regurgitation. Aortic Valve: No significant aortic stenosis or insufficiency. Aortic valve not well visualized. Tricuspid Valve: Tricuspid valve not well visualized. Estimated peak PA systolic pressure 23 mmHg. There is trace tricuspid regurgitation. Pulmonic Valve: Pulmonic valve not well visualized. Pericardium: Normal pericardium with no significant pericardial effusion. Aorta: Normal aortic root. IVC: The IVC is not well visualized. Pulmonary Artery: Normal pulmonary artery size. Conclusions 1.Normal left ventricular systolic function. Normal left ventricular cavity size. Normal left ventricular wall thickness. Ejection fraction is visually estimated at 60 %. Tissue Doppler/Mitral Doppler indices are consistent with impaired relaxation (Stage I diastolic dysfunction). 2.Mitral valve leaflets appear mildly thickened. Mild mitral annular calcification. Trace mitral regurgitation. 3.No significant aortic stenosis or insufficiency. Aortic valve not well visualized. 4.Tricuspid valve not well visualized. Estimated peak PA systolic pressure 23 mmHg. There is trace tricuspid regurgitation. 5.suboptimal study. Electronically Signed By: Chapito Castillo 20-Jun-2016 07:35:48 -0800 Patient Name: SHAWN MADRIGAL Study Date: 19-[id number]
[2016-06-20 07:53] LABS: URINE RBCS NONE SEEN /HPF (0)
[2016-06-20 08:02] LABS: MAGNESIUM 2.4 mg/dl (1.7-2.5)
[2016-06-20] MEDS: MULTIVIT/CA CARB/B CMPLX/FA TAB PO SCH (08:43)
[2016-06-20] MEDS: ESCITALOPRAM 10 MG TAB PO SCH (08:43)
[2016-06-20] MEDS: GABAPENTIN 300 MG CAP PO SCH (08:43)
[2016-06-20] MEDS: POLYETHYLENE GLYCOL 17 GM PACKET PO SCH (08:43)
[2016-06-20] MEDS: CLOZAPINE 100 MG TABLET PO SCH ×3 (08:44→22:33)
[2016-06-20] MEDS ORDERED: INFLUENZA VIRUS VACCINE 0.5 ML (DISPENSING) IM* ONE (09:00)
[2016-06-20] MEDS: SOD CHLORIDE 0.9% 1,000 ML IV SCH ×2 (12:08→22:39)
--- NOTE | 2016-06-20 12:15 | PN ---
DATE: SUBJECTIVE: The patient is stable, no acute events overnight. No fevers, chills, nausea, vomiting, no shortness of breath. OBJECTIVE: VITAL SIGNS: Blood pressure is 95/59, respiratory rate 21, pulse 93, temperature 98.0. HEENT: Head is normocephalic. NECK: Supple. HEART: Regular rate. LUNGS: Show diminished breath sounds at the base. ABDOMEN: Soft, nontender to palpation. No rebound or guarding. EXTREMITIES: Negative for clubbing, cyanosis, no edema. DERMATOLOGIC: No rashes. MUSCULOSKELETAL: No joint effusions. NEUROLOGIC: No change in exam. MEDICATIONS: The patient's medications have been reviewed. LABORATORY DATA: Shows a sodium 136, potassium 4.2, chloride 108, bicarbonate 16, BUN 59, creatinin e 3.72. White count 17.5, hemoglobin 11.4, hematocrit 34.0, platelet count is 227. Repeat urinalys is shows no active sediment, 1%. Renal ultrasound shows mild left-sided hydronephrosis, vinay l echogenicity, small bilateral renal calculi. ASSESSMENT AND PLAN: 1. Nonoliguric acute kidney injury with unknown baseline creatinine. Etiology is likely secondary to volume depletion, hemodynamics. The patient's urinalysis shows no evidence of active sediment, t herefore low suspicion for acute glomerulonephritis, vasculitis or interstitial nephritis. The jose eduardo ent's renal ultrasound shows no obstruction. There is mild left-sided hydronephrosis. At this poin t, continue current treatment plan. Continue IV fluids, IV antibiotics, continue supportive care, r enally dose all meds, avoid nephrotoxins. 2. Hypertension, likely secondary to volume depletion, sepsis. Continue current treatment plan. C ontinue IV fluids, IV antibiotics, monitor closely. 3. Anemia, likely of chronic disease. Continue to monitor hemoglobin and hematocrit levels. 4. Mineral bone disorder. Monitor calcium and phosphorus levels. 5. Sepsis secondary to urinary tract infection. Continue current antibiotic treatment. Continue I V fluids, monitor closely. 6. Syncope. Etiology is likely due to volume depletion and sepsis. Patient's CT scan of the head is negative for any acute pathology. Carotid Doppler ultrasound shows no significant hemodynamic, o bstruction. Continue current medical management. Continue to monitor on telemetry. 7. History of schizophrenia. Continue current psychotropic medication. 8. History of hypertension. The patient is now hypotensive. Continue to hold diuretic therapy. 9. Questionable history of diabetes insipidus. The patient's urine osmolarity is currently pending . Sodium levels have been within normal limits. We will monitor closely. Dictated By: RADHAMES RIVAS DO NR/IVONE Conf#: [id number] DID#: [id number] CC: CLAUDETTE MILLER MD;*[facility]*
--- NOTE | 2016-06-20 15:49 | PN ---
Date/Time of Note Date/Time of Note DATE: 06/20/16 TIME: 15:45 Assessment/Plan VTE Prophylaxis VTE Prophylaxis Intervention: SCD's Lines/Catheters [facility] [place] Assessment/Plan Chief Complaint/Hosp Course 1. Sepsis secondary to urinary tract infection from Morganella species Continue Rocephin IV per culture and sensitivity 2. Syncope likely secondary to hypotension and/or dehydration and/or sepsis Carotid ultrasound shows no significant stenosis, 2D echo shows no etiology for syncopal episode, normal EF is noted with stage I diastolic heart failure Continue IV fluids and antibiotics 3. Acute versus chronic kidney disease-improving Likely secondary to dehydration, hold p.o. diuretics and continue IV fluids Nephrology consultation appreciated 4. History of schizophrenia Continue home medications. 5. History of hypertension Will continue to hold the patient's home antihypertensives as his blood pressure is low at this time 6. Prophylaxis. SCDs Problems: Subjective 24 Hr Interval Summary Constitutional: no complaints Exam/Review of Systems Vital Signs Vitals Vital Signs Date Time Temp Pulse Resp B/P Pulse Ox O2 Delivery O2 Flow Rate FiO2 06/20/16 12:50 98.2 89 21 113/70 100 06/19/16 05:30 Room Air Intake and Output 06/19/16 06/19/16 06/20/16 14:59 22:59 06:59 Intake Total 360 ml 2440 ml 2320 ml Output Total 300 ml 2400 ml 2200 ml Balance 60 ml 40 ml 120 ml Exam Constitutional: alert Respiratory: clear to auscultation Cardiovascular: regular rate and rhythm Gastrointestinal: soft, No distended Musculoskeletal: nl extremities to inspection Results Result Diagram: 06/20/16 0607 06/20/16 0600 Results 24 hrs Laboratory Tests Test 06/20/16 05:00 06/20/16 06:00 06/20/16 06:07 Urine Bilirubin NEGATIVE Urine Clarity CLEAR Urine Color LT. YELLOW Urine Glucose NEGATIVE Urine Hemoglobin TRACE Urine Ketones NEGATIVE Urine Leukocyte Esterase 1+ H Urine Microscopic RBC NONE SEEN Urine Microscopic WBC 2-5 Urine Nitrite NEGATIVE Urine Osmolality 223 L Urine Random Creatinine 25.46 Urine Random Sodium 40 Urine Specific [place] 1.010 Urine Total Protein Urine Urobilinogen 0.2 E.U./dL Urine pH 6.0 Anion Gap 16 Blood Urea Nitrogen 59 H Calcium Level 8.2 L Carbon Dioxide Level 16 L Chloride Level 108 Creatinine 3.72 H Glucose Level 96 Potassium Level 4.2 Sodium Level 136 Basophils # 0.1 Basophils % 0.8 Blood Morphology Comment Eosinophils # 0.3 Eosinophils % 1.9 Hematocrit 34.0 L Hemoglobin 11.4 L Lymphocytes # 2.9 Lymphocytes % 16.3 Magnesium Level 2.4 Mean Corpuscular Hemoglobin 29.5 Mean Corpuscular Hemoglobin Concent 33.5 Mean Corpuscular Volume 88.1 Mean Platelet Volume 8.9 Monocytes # 1.0 H Monocytes % 5.9 Neutrophils # 13.2 H Neutrophils % 75.1 Nucleated Red Blood Cells # 0.0 Nucleated Red Blood Cells % 0.0 Phosphorus Level 5.0 H Platelet Count 227 Red Blood Count 3.86 L Red Cell Distribution Width 15.1 H White Blood Count 17.5 H Medications Medications Current Medications Ondansetron HCl (Zofran Inj) 4 mg Q6H PRN IV NAUSEA AND/OR VOMITING; Start at 18:00 Acetaminophen (Tylenol Tab) 650 mg Q6H PRN PO PAIN LEVEL 1-3 OR FEVER; Start 06/18/16 at 18:00 Acetaminophen/ Hydrocodone Bitart ([place] (5/325)) 1 tab Q6H PRN PO MODERATE PAIN LEVEL 4-6; Start 06/18/16 at 18:00 Morphine Sulfate (morphine) 2 mg Q4H PRN IV SEVERE PAIN LEVEL 7-10; Start at 18:00 Docusate Sodium (Colace) 200 mg Q12H PO Last administered on 06/20/16at 06:22; Admin Dose 200 MG; Start 06/18/16 at 18:00 Magnesium Hydroxide (Milk Of Mag) 30 ml DAILY PRN PO CONSTIPATION; Start 06/18 at 18:00 Zolpidem Tartrate (Ambien) 5 mg QHS PRN PO SLEEP; Start 06/18/16 at 18:00 Alprazolam (Xanax) 0.5 mg BID PRN PO ANXIETY; Start 06/18/16 at 18:00 Atorvastatin Calcium (Lipitor) 10 mg QHS PO Last administered on 06/19/16at 21: 22; Admin Dose 10 MG; Start 06/18/16 at 21:00 Bisacodyl (Dulcolax Supp) 10 mg Q24H PRN [place] CONSTIPATION; Start 06/18/16 at 18 :00 Clonazepam (Klonopin) 0.25 mg TID PRN PO ANXIETY; Start 06/18/16 at 18:00 Escitalopram Oxalate (Lexapro) 20 mg DAILY PO Last administered on 06/20/16at 08:43; Admin Dose 20 MG; Start 06/19/16 at 09:00 Gabapentin (Neurontin) 300 mg DAILY PO Last administered on 06/20/16 08:43; Admin Dose 300 MG; Start 06/19/16 at 09:00 Magnesium Hydroxide (Milk Of Mag) 30 ml DAILY PRN PO CONSTIPATION; Start 06/18 at 18:00 Mineral Oil (Fleet Mineral Oil Enema) 133 ml DAILY PRN [place] CONSTIPATION; Start 06/18/16 at 18:00 Polyethylene Glycol (Miralax) 17 gm DAILY PO Last administered on 06/20/16 08 :43; Admin Dose 17 GM; Start 06/18/16 at 18:00 Multivit/Ca Carb/ B Cmplx/FA/Prenat 1 tab 1 tab DAILY PO Last administered on 06/20/16 08:43; Admin Dose 1 TAB; Start 06/19/16 at 15:00 Ceftriaxone Sodium (Rocephin) 50 ml @ 100 mls/hr Q24H IVPB Last administered on 06/19/16 17:46; Admin Dose 100 MLS/HR; Start 06/18/16 at 18:00 Pantoprazole (Protonix Tab) 40 mg DAILY@06 PO Last administered on 06/20/16 06:21; Admin Dose 40 MG; Start 06/19/16 at 06:00 Clozapine (Clozaril) 400 mg QHS PO Last administered on 06/19/16at 23:05; Admin Dose 400 MG; Start 06/18/16 at 21:00; Status Future hold Clozapine 225 mg 225 mg QAM PO Last administered on 06/20/16 08:44; Admin Dose 225 MG; Start 06/20/16 at 09:00 Sodium Chloride (NS) 1,000 ml @ 75 mls/hr [id number] IV Last administered on 12:08; Admin Dose 75 MLS/HR; Start 06/20/16 at 11:30 SIENNA COTTO Jun 20, 2016 15:49
[2016-06-20] MEDS: CEFTRIAXONE 1 GM/50 ML (PMX) 50 ML IVPB SCH (19:23)
[2016-06-20] MEDS: ATORVASTATIN 10 MG TAB PO SCH (22:33)
[2016-06-21] VITALS (10 sets, daily range): BP systolic 85–136; BP diastolic 56–73; PULSE 91–98; RESP 18–20
[2016-06-21] MEDS: DOCUSATE SODIUM 100 MG CAP PO SCH ×2 (06:02→18:05)
[2016-06-21] MEDS: PANTOPRAZOLE (EC) 40 MG TAB PO SCH (06:02)
[2016-06-21] MEDS: LEVOTHYROXINE 100 MCG TAB PO SCH (06:02)
[2016-06-21 08:28] LABS: BASOPHIL # 0.1 10^3/ul (0.0-0.1); BASOPHILS % 0.4 % (0.0-2.0); EOSINOPHILS # 0.3 10^3/ul (0.0-0.5); EOSINOPHILS % 1.9 % (0.0-7.0); HEMATOCRIT 33.1 % (42.0-52.0); HEMOGLOBIN 10.9 g/dl (14.0-18.0); LYMPHOCYTES # 2.3 10^3/ul (0.8-2.9); LYMPHOCYTES % 16.3 % (15.0-51.0); MEAN CORPUSCULAR HEMOGLOBIN 29.3 pg (29.0-33.0); MEAN CORPUSCULAR HGB CONC 33.1 g/dl (32.0-37.0); MEAN CORPUSCULAR VOLUME 88.5 fl (82.0-101.0); MEAN PLATELET VOLUME 9.1 fl (7.4-10.4); MONOCYTE # 0.7 10^3/ul (0.3-0.9); MONOCYTES % 4.6 % (0.0-11.0); NEUTROPHIL # 10.9 10^3/ul (1.6-7.5); NEUTROPHILS % 76.8 % (39.0-77.0); PLATELET COUNT 227 10^3/UL (140-440); RED BLOOD COUNT 3.74 10^6/ul (4.70-6.10); RED CELL DISTRIBUTION WIDTH 15.4 % (11.5-14.5); UNCORRECTED WBC 14.1 10^3/ul (4.8-10.8); WHITE BLOOD COUNT 14.1 10^3/ul (4.8-10.8)
[2016-06-21 08:37] LABS: CONDITION 1; LH ANALYZER COMMENTS 1
[2016-06-21 08:38] LABS: POTASSIUM 3.8 mmol/L (3.5-5.1)
[2016-06-21 08:40] LABS: CREATININE 3.65 mg/dl (0.61-1.24)
[2016-06-21 08:41] LABS: CALCIUM 8.4 mg/dl (8.4-10.2); MAGNESIUM 2.4 mg/dl (1.7-2.5); PHOSPHORUS 4.5 mg/dl (2.5-4.9)
[2016-06-21] MEDS: ESCITALOPRAM 10 MG TAB PO SCH (08:50)
[2016-06-21] MEDS: MULTIVIT/CA CARB/B CMPLX/FA TAB PO SCH (08:50)
[2016-06-21] MEDS: CLOZAPINE 100 MG TABLET PO SCH ×3 (08:50→20:43)
[2016-06-21] MEDS: GABAPENTIN 300 MG CAP PO SCH (08:50)
[2016-06-21] MEDS: POLYETHYLENE GLYCOL 17 GM PACKET PO SCH (08:51)
--- NOTE | 2016-06-21 12:15 | PN ---
DATE: 06/21/2016 SUBJECTIVE: The patient is stable. No acute events overnight. No fevers, chills, nausea or vomiti ng. No shortness of breath. The patient is more alert this morning. OBJECTIVE: VITAL SIGNS: Blood pressure 106/73, respirations 18, pulse 92, temperature 98.2. The patient had 2 liters in, 4 liters out. HEENT: Head is normocephalic. NECK: Supple. HEART: Regular rate. LUNGS: Showed diminished breath sounds at the base. ABDOMEN: Soft, nontender to palpation. No rebound or guarding. EXTREMITIES: Negative for clubbing or cyanosis. No edema. DERMATOLOGIC: No rashes. MUSCULOSKELETAL: Have no joint effusion. NEUROLOGIC: No change in exam. MEDICATIONS: The patient's medications have been reviewed. LABORATORY DATA: Shows sodium 139, potassium 3.8, chloride 110, BUN 52, creatinine 3.65. White cou nt 14.1, hemoglobin 10.9, hematocrit 33.1, platelet count 227. ASSESSMENT AND PLAN: 1. Nonoliguric acute kidney injury, with unknown baseline creatinine. Etiology is secondary to hem odynamics and volume depletion. The patient's renal function has slowly been improving with IV hydr ation and supportive care. At this point continue the current treatment plan, continue supportive c are, renally dose all meds, and avoid nephrotoxins. 2. Hypotension, likely secondary to volume depletion and sepsis. Continue IV fluids and IV antibio tics. 3. Anemia of chronic disease. Continue to monitor hemoglobin and hematocrit levels. 4. Mineral bone disorder. Continue to monitor calcium and phosphorus levels. 5. 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 The patient may have incomplete diabetes insipidus, as urine osmolarity is still able to be concentrated marginally at 225 milliosmoles. At this point, the patient's sodium level is within normal limits. Will cont inue to monitor. Will continue to hold diuretic therapy. 6. Sepsis secondary to a urinary tract infection. Continue the current antibiotic regimen. 7. Syncope. Etiology may be multifactorial secondary to volume depletion and sepsis. The patient' s workup has been negative to date. Continue current medical management, as stated above. 8. History of schizophrenia. Continue to monitor. Dictated By: RADHAMES YIP/IVONE Conf#: [id number] [facility]#: [id number]
[2016-06-21] MEDS: SOD CHLORIDE 0.9% 1,000 ML IV SCH (14:31)
--- NOTE | 2016-06-21 15:16 | PN ---
Date/Time of Note Date/Time of Note DATE: 06/21/16 TIME: 15:12 Assessment/Plan VTE Prophylaxis VTE Prophylaxis Intervention: SCD's Lines/Catheters [facility] Peripheral IV Assessment/Plan Chief Complaint/Hosp Course 1. Sepsis secondary to urinary tract infection from Morganella species- improving Continue Rocephin IV per culture and sensitivity 2. Syncope secondary to orthostatic hypotension from dehydration and/or sepsis Carotid ultrasound shows no significant stenosis, 2D echo shows no etiology for syncopal episode, normal EF is noted with stage I diastolic heart failure Continue IV fluids and antibiotics 3. Acute versus chronic kidney disease-improving Likely secondary to dehydration, hold p.o. diuretics and continue IV fluids Nephrology consultation appreciated 4. History of schizophrenia Continue home medications. 5. History of hypertension Will continue to hold the patient's home antihypertensives as his blood pressure is low at this time 6. Prophylaxis. SCDs Problems: Subjective 24 Hr Interval Summary Constitutional: no complaints Exam/Review of Systems Vital Signs Vitals Vital Signs Date Time Temp Pulse Resp B/P Pulse Ox O2 Delivery O2 Flow Rate FiO2 06/21/16 12:57 92 06/21/16 12:32 98.0 113/63 06/21/16 07:51 18 100 06/19/16 05:30 Room Air Intake and Output 06/20/16 06/20/16 06/21/16 15:00 23:00 07:00 Intake Total 1300 ml 950 ml Output Total 2100 ml 2000 ml Balance -800 ml -1050 ml Exam Constitutional: alert Respiratory: clear to auscultation Cardiovascular: regular rate and rhythm Gastrointestinal: soft, No distended Musculoskeletal: nl extremities to inspection Results Result Diagram: 06/21/16 0721 06/21/16 0721 Results 24 hrs Laboratory Tests Test 06/21/16 07:21 Anion Gap 17 H Basophils # 0.1 Basophils % 0.4 Blood Morphology Comment Blood Urea Nitrogen 52 H Calcium Level 8.4 Carbon Dioxide Level 16 L Chloride Level 110 Creatinine 3.65 H Eosinophils # 0.3 Eosinophils % 1.9 Glucose Level 99 Hematocrit 33.1 L Hemoglobin 10.9 L Lymphocytes # 2.3 Lymphocytes % 16.3 Magnesium Level 2.4 Mean Corpuscular Hemoglobin 29.3 Mean Corpuscular Hemoglobin Concent 33.1 Mean Corpuscular Volume 88.5 Mean Platelet Volume 9.1 Monocytes # 0.7 Monocytes % 4.6 Neutrophils # 10.9 H Neutrophils % 76.8 Nucleated Red Blood Cells # 0.0 Nucleated Red Blood Cells % 0.0 Phosphorus Level 4.5 Platelet Count 227 Potassium Level 3.8 Red Blood Count 3.74 L Red Cell Distribution Width 15.4 H Sodium Level 139 White Blood Count 14.1 H Medications Medications Current Medications Ondansetron HCl (Zofran Inj) 4 mg Q6H PRN IV NAUSEA AND/OR VOMITING; Start at 18:00 Acetaminophen (Tylenol Tab) 650 mg Q6H PRN PO PAIN LEVEL 1-3 OR FEVER; Start 06/18/16 at 18:00 Acetaminophen/ Hydrocodone Bitart ([place] (5/325)) 1 tab Q6H PRN PO MODERATE PAIN LEVEL 4-6; Start 06/18/16 at 18:00 Morphine Sulfate (morphine) 2 mg Q4H PRN IV SEVERE PAIN LEVEL 7-10; Start at 18:00 Docusate Sodium (Colace) 200 mg Q12H PO Last administered on 06/21/16at 06:02; Admin Dose 200 MG; Start 06/18/16 at 18:00 Magnesium Hydroxide (Milk Of Mag) 30 ml DAILY PRN PO CONSTIPATION; Start 06/18 at 18:00 Zolpidem Tartrate (Ambien) 5 mg QHS PRN PO SLEEP; Start 06/18/16 at 18:00 Alprazolam (Xanax) 0.5 mg BID PRN PO ANXIETY; Start 06/18/16 at 18:00 Atorvastatin Calcium (Lipitor) 10 mg QHS PO Last administered on 06/20/16at 22: 33; Admin Dose 10 MG; Start 06/18/16 at 21:00 Bisacodyl (Dulcolax Supp) 10 mg Q24H PRN [place] CONSTIPATION; Start 06/18/16 at 18 :00 Clonazepam (Klonopin) 0.25 mg TID PRN PO ANXIETY; Start 06/18/16 at 18:00 Escitalopram Oxalate (Lexapro) 20 mg DAILY PO Last administered on 06/21/16at 08:50; Admin Dose 20 MG; Start 06/19/16 at 09:00 Gabapentin (Neurontin) 300 mg DAILY PO Last administered on 06/21/16at 08:50; Admin Dose 300 MG; Start 06/19/16 at 09:00 Magnesium Hydroxide (Milk Of Mag) 30 ml DAILY PRN PO CONSTIPATION; Start 06/18 at 18:00 Mineral Oil (Fleet Mineral Oil Enema) 133 ml DAILY PRN [place] CONSTIPATION; Start 06/18/16 at 18:00 Polyethylene Glycol (Miralax) 17 gm DAILY PO Last administered on 06/21/16at 08 :51; Admin Dose 17 GM; Start 06/18/16 at 18:00 Multivit/Ca Carb/ B Cmplx/FA/Prenat 1 tab 1 tab DAILY PO Last administered on 06/21/16 08:50; Admin Dose 1 TAB; Start 06/19/16 at 15:00 Ceftriaxone Sodium (Rocephin) 50 ml @ 100 mls/hr Q24H IVPB Last administered on 06/20/16 19:23; Admin Dose 100 MLS/HR; Start 06/18/16 at 18:00 Pantoprazole (Protonix Tab) 40 mg DAILY@06 PO Last administered on 06/21/16 06:02; Admin Dose 40 MG; Start 06/19/16 at 06:00 Clozapine (Clozaril) 400 mg QHS PO Last administered on 06/20/16at 22:33; Admin Dose 400 MG; Start 06/18/16 at 21:00; Status Future hold Clozapine 225 mg 225 mg QAM PO Last administered on 06/21/16 08:50; Admin Dose 225 MG; Start 06/20/16 at 09:00 Sodium Chloride (NS) 1,000 ml @ 75 mls/hr [id number] IV Last administered on 14:31; Admin Dose 75 MLS/HR; Start 06/20/16 at 11:30 SIENNA COTTO Jun 21, 2016 15:16
[2016-06-21 15:20] LABS: MICROALBUMIN 0.4 mg/dL
[2016-06-21] MEDS: CEFTRIAXONE 1 GM/50 ML (PMX) 50 ML IVPB SCH (18:06)
[2016-06-21] MEDS: ATORVASTATIN 10 MG TAB PO SCH (20:43)
[2016-06-22] MEDS: SOD CHLORIDE 0.9% 1,000 ML IV SCH ×2 (03:30→06:08)
[2016-06-22] MEDS: DOCUSATE SODIUM 100 MG CAP PO SCH ×2 (06:07→17:50)
[2016-06-22] MEDS: LEVOTHYROXINE 100 MCG TAB PO SCH (06:07)
[2016-06-22] MEDS: PANTOPRAZOLE (EC) 40 MG TAB PO SCH (06:07)
[2016-06-22 06:58] LABS: BASOPHIL # 0.1 10^3/ul (0.0-0.1); BASOPHILS % 0.5 % (0.0-2.0); EOSINOPHILS # 0.2 10^3/ul (0.0-0.5); EOSINOPHILS % 1.7 % (0.0-7.0); HEMATOCRIT 32.3 % (42.0-52.0); HEMOGLOBIN 10.6 g/dl (14.0-18.0); LYMPHOCYTES # 1.9 10^3/ul (0.8-2.9); LYMPHOCYTES % 17.2 % (15.0-51.0); MEAN CORPUSCULAR HEMOGLOBIN 29.1 pg (29.0-33.0); MEAN CORPUSCULAR VOLUME 88.2 fl (82.0-101.0); MEAN PLATELET VOLUME 8.9 fl (7.4-10.4); MONOCYTE # 0.8 10^3/ul (0.3-0.9); MONOCYTES % 7.1 % (0.0-11.0); NEUTROPHIL # 8.2 10^3/ul (1.6-7.5); NEUTROPHILS % 73.5 % (39.0-77.0); PLATELET COUNT 212 10^3/UL (140-440); RED BLOOD COUNT 3.66 10^6/ul (4.70-6.10); RED CELL DISTRIBUTION WIDTH 15.6 % (11.5-14.5); UNCORRECTED WBC 11.1 10^3/ul (4.8-10.8); WHITE BLOOD COUNT 11.1 10^3/ul (4.8-10.8)
[2016-06-22 07:01] LABS: CREATININE 3.57 mg/dl (0.61-1.24)
[2016-06-22 07:02] LABS: CALCIUM 8.4 mg/dl (8.4-10.2); PHOSPHORUS 4.1 mg/dl (2.5-4.9)
[2016-06-22 07:03] LABS: MAGNESIUM 2.3 mg/dl (1.7-2.5)
[2016-06-22 07:11] LABS: CONDITION 1; LH ANALYZER COMMENTS 1
[2016-06-22 07:30] VITALS: BP 112/68; PULSE 94; RESP 18
[2016-06-22] MEDS: ESCITALOPRAM 10 MG TAB PO SCH (09:15)
[2016-06-22] MEDS: MULTIVIT/CA CARB/B CMPLX/FA TAB PO SCH (09:16)
[2016-06-22] MEDS: GABAPENTIN 300 MG CAP PO SCH (09:16)
[2016-06-22] MEDS: POLYETHYLENE GLYCOL 17 GM PACKET PO SCH (09:16)
[2016-06-22] MEDS: CLOZAPINE 100 MG TABLET PO SCH ×3 (10:57→20:47)
[2016-06-22] MEDS: DEXTROSE 5% 1,000 ML IV SCH (13:04)
--- NOTE | 2016-06-22 13:10 | PN ---
DATE: 06/22/2016 SUBJECTIVE: The patient is stable, no acute events overnight. No fevers, chills, nausea vomiting, no shortness of breath. OBJECTIVE: VITAL SIGNS: Blood pressure is 112/68, respiration 18, pulse 76, temperature 97.6. I'S AND O'S: The patient had 2 L in, 1.3 L out. HEENT: Head is normocephalic. NECK: Supple. HEART: Regular rate. LUNGS: Show diminished breath sounds at the base. ABDOMEN: Soft, nontender to palpation. No rebound or guarding. EXTREMITIES: Negative for clubbing, cyanosis. No edema. DERMATOLOGIC: No rashes. MUSCULOSKELETAL: No joint effusions. NEUROLOGIC: No change in exam. MEDICATIONS: The patient's medications have been reviewed. LABORATORY DATA: Shows sodium 146, potassium 4.0, chloride 113, bicarbonate 18, BUN 50, creatinine 3.57. White count 11.1, hemoglobin 10.6, hematocrit 32.3, platelet count is 212. ASSESSMENT AND PLAN: 1. Nonoliguric acute kidney injury with possible underlying chronic kidney disease from previous li thium exposure. Baseline renal function and baseline creatinine is unknown. Etiology of current ac jackson kidney injury was felt to be secondary to hemodynamics, volume depletion. The patient's renal f unction has been slowly improving with IV fluids, again, unclear what baseline renal function is. A t this point, continue current treatment plan. Continue supportive care, renally dose all meds, bharat id nephrotoxins, continue gentle hydration. Of note, the patient's urinalysis has been bland, no ev idence of active sediment. Renal ultrasound shows no evidence of obstruction. 2. A questionable history of diabetes insipidus, possibly due to previous lithium use. The patient currently is hypernatremic, sodium levels increased to 146. It is unclear if this is due to poor f ree water intake per patient or from polyuria. The patient does not seem to have polyuria on I's an d O's, however, it is unclear if this is being adequately recorded. Plan at this point is to check a urine osmolarity and a serum osmolarity. If the patient's urine osmolarity is inappropriately low for this level of hypernatremia, would then reconsider placing the patient back on hydrochlorothiaz ashley. Otherwise, will start the patient on D5W, will monitor serum sodium levels, and will encourage the patient to increase free water intake. A diagnosis of central diabetes insipidus is less likel y given the patient's clinical history and presentation. 3. Hypertension, etiology is felt to be secondary to volume depletion and sepsis. The patient is c linically improving. Continue to monitor. 4. Anemia of chronic disease. Monitor hemoglobin and hematocrit levels. 5. Mineral bone disorder. Monitor calcium and phosphorus levels. No need for phosphate binders. 6. Sepsis secondary to urinary tract infection, clinically improving. Continue current antibiotic regimen. 7. Syncope, etiology is multifactorial as stated above. Continue to monitor. 8. History of schizophrenia, psychosis, continue to monitor. Follow up with primary team. Ricki Burris. Dictated By: RADHAMES YIP/IVONE Conf#: [id number] DID#: [id number]
--- NOTE | 2016-06-22 15:14 | PN ---
Date/Time of Note Date/Time of Note DATE: 06/22/16 TIME: 15:12 Assessment/Plan VTE Prophylaxis VTE Prophylaxis Intervention: SCD's Lines/Catheters [facility] Peripheral IV Urinary Cath still in place: No Assessment/Plan Chief Complaint/Hosp Course 1. Sepsis secondary to urinary tract infection from Morganella species- improving Continue Rocephin IV per culture and sensitivity 2. Syncope secondary to orthostatic hypotension from dehydration and/or sepsis Carotid ultrasound shows no significant stenosis, 2D echo shows no etiology for syncopal episode, normal EF is noted with stage I diastolic heart failure Continue IV fluids and antibiotics 3. Acute versus chronic kidney disease-improving Likely secondary to dehydration, hold p.o. diuretics and continue IV fluids Nephrology consultation appreciated 4. History of schizophrenia Continue home medications. 5. History of hypertension Will continue to hold the patient's home antihypertensives as his blood pressure is low at this time 6. Diabetes insipidus possibly from history of lithium use Nephrology on the case, will resume patient's home diuretic regimen upon DC Prophylaxis. SCDs Problems: Subjective 24 Hr Interval Summary Constitutional: no complaints Exam/Review of Systems Vital Signs Vitals Vital Signs Date Time Temp Pulse Resp B/P Pulse Ox O2 Delivery O2 Flow Rate FiO2 06/22/16 07:30 97.6 94 18 112/68 94 Room Air Intake and Output 06/21/16 06/21/16 06/22/16 15:00 23:00 07:00 Intake Total 1050 ml 1000 ml Output Total 1300 ml Balance 1050 ml -300 ml Exam Constitutional: alert Respiratory: clear to auscultation Cardiovascular: regular rate and rhythm Gastrointestinal: soft, No distended Musculoskeletal: nl extremities to inspection Results Result Diagram: 06/22/16 0550 06/22/16 0550 Results 24 hrs Laboratory Tests Test 06/22/16 05:50 06/22/16 09:51 Anion Gap 19 H Basophils # 0.1 Basophils % 0.5 Blood Morphology Comment Blood Urea Nitrogen 50 H Calcium Level 8.4 Carbon Dioxide Level 18 L Chloride Level 113 H Creatinine 3.57 H Eosinophils # 0.2 Eosinophils % 1.7 Glucose Level 106 Hematocrit 32.3 L Hemoglobin 10.6 L Lymphocytes # 1.9 Lymphocytes % 17.2 Magnesium Level 2.3 Mean Corpuscular Hemoglobin 29.1 Mean Corpuscular Hemoglobin Concent 33.0 Mean Corpuscular Volume 88.2 Mean Platelet Volume 8.9 Monocytes # 0.8 Monocytes % 7.1 Neutrophils # 8.2 H Neutrophils % 73.5 Nucleated Red Blood Cells # 0.0 Nucleated Red Blood Cells % 0.0 Osmolality 309 H Phosphorus Level 4.1 Platelet Count 212 Potassium Level 4.0 Red Blood Count 3.66 L Red Cell Distribution Width 15.6 H Sodium Level 146 H White Blood Count 11.1 #H Lab Scanned Report REFERENCE LAB Medications Medications Current Medications Ondansetron HCl (Zofran Inj) 4 mg Q6H PRN IV NAUSEA AND/OR VOMITING; Start at 18:00 Acetaminophen (Tylenol Tab) 650 mg Q6H PRN PO PAIN LEVEL 1-3 OR FEVER; Start 06/18/16 at 18:00 Acetaminophen/ Hydrocodone Bitart ([place] (5/325)) 1 tab Q6H PRN PO MODERATE PAIN LEVEL 4-6; Start 06/18/16 at 18:00 Morphine Sulfate (morphine) 2 mg Q4H PRN IV SEVERE PAIN LEVEL 7-10; Start at 18:00 Docusate Sodium (Colace) 200 mg Q12H PO Last administered on 06/22/16at 06:07; Admin Dose 200 MG; Start 06/18/16 at 18:00 Magnesium Hydroxide (Milk Of Mag) 30 ml DAILY PRN PO CONSTIPATION; Start 06/18 at 18:00 Zolpidem Tartrate (Ambien) 5 mg QHS PRN PO SLEEP; Start 06/18/16 at 18:00 Alprazolam (Xanax) 0.5 mg BID PRN PO ANXIETY; Start 06/18/16 at 18:00 Atorvastatin Calcium (Lipitor) 10 mg QHS PO Last administered on 06/21/16at 20: 43; Admin Dose 10 MG; Start 06/18/16 at 21:00 Bisacodyl (Dulcolax Supp) 10 mg Q24H PRN [place] CONSTIPATION; Start 06/18/16 at 18 :00 Clonazepam (Klonopin) 0.25 mg TID PRN PO ANXIETY; Start 06/18/16 at 18:00 Escitalopram Oxalate (Lexapro) 20 mg DAILY PO Last administered on 06/22/16at 09:15; Admin Dose 20 MG; Start 06/19/16 at 09:00 Gabapentin (Neurontin) 300 mg DAILY PO Last administered on 06/22/16 09:16; Admin Dose 300 MG; Start 06/19/16 at 09:00 Magnesium Hydroxide (Milk Of Mag) 30 ml DAILY PRN PO CONSTIPATION; Start 06/18 at 18:00 Mineral Oil (Fleet Mineral Oil Enema) 133 ml DAILY PRN [place] CONSTIPATION; Start 06/18/16 at 18:00 Polyethylene Glycol (Miralax) 17 gm DAILY PO Last administered on 06/22/16 09 :16; Admin Dose 17 GM; Start 06/18/16 at 18:00 Multivit/Ca Carb/ B Cmplx/FA/Prenat 1 tab 1 tab DAILY PO Last administered on 06/22/16 09:16; Admin Dose 1 TAB; Start 06/19/16 at 15:00 Ceftriaxone Sodium (Rocephin) 50 ml @ 100 mls/hr Q24H IVPB Last administered on 06/21/16 18:06; Admin Dose 100 MLS/HR; Start 06/18/16 at 18:00 Pantoprazole (Protonix Tab) 40 mg DAILY@06 PO Last administered on 06/22/16 06:07; Admin Dose 40 MG; Start 06/19/16 at 06:00 Clozapine (Clozaril) 400 mg QHS PO Last administered on 06/21/16at 20:43; Admin Dose 400 MG; Start 06/18/16 at 21:00; Status Future hold Clozapine 225 mg 225 mg QAM PO Last administered on 06/22/16 10:57; Admin Dose 225 MG; Start 06/20/16 at 09:00 Dextrose (D5W) 1,000 ml @ 75 mls/hr [id number] IV Last administered on 13:04; Admin Dose 75 MLS/HR; Start 06/22/16 at 11:30 SIENNA COTTO Jun 22, 2016 15:14
[2016-06-22 15:20] LABS: POTASSIUM 3.7 mmol/L (3.5-5.1)
[2016-06-22 15:22] LABS: CREATININE 3.72 mg/dl (0.61-1.24)
[2016-06-22 15:23] LABS: CALCIUM 8.1 mg/dl (8.4-10.2)
[2016-06-22] MEDS: CEFTRIAXONE 1 GM/50 ML (PMX) 50 ML IVPB SCH (17:51)
[2016-06-22 19:54] LABS: ADD UMIC YES; URINE BILIRUBIN (Dip) NEGATIVE (NEGATIVE); URINE BLOOD (Dip) NEGATIVE (NEGATIVE); URINE COLOR LT. YELLOW (YELLOW); URINE GLUCOSE (Dip) NEGATIVE (NEGATIVE); URINE KETONES (Dip) NEGATIVE (NEGATIVE); URINE LEUKOCYTE ESTERASE (Dip) 1+ (NEGATIVE); URINE NITRITE (Dip) NEGATIVE (NEGATIVE); URINE TOTAL PROTEIN (Dip) NEGATIVE (NEGATIVE); URINE UROBILINOGEN (Dip) 0.2 E.U./dL (0.1-1.0)
[2016-06-22 20:00] VITALS: BP 116/66; PULSE 98; RESP 18
[2016-06-22 20:09] LABS: BACTERIA,URINE MODERATE; TRANSITIONAL EPI CELLS,URINE FEW; URINE RBCS NONE SEEN /HPF (0)
[2016-06-22] MEDS: ATORVASTATIN 10 MG TAB PO SCH (20:47)
[2016-06-23] MEDS: DEXTROSE 5% 1,000 ML IV SCH ×3 (00:50→18:16)
[2016-06-23] MEDS: PANTOPRAZOLE (EC) 40 MG TAB PO SCH (05:30)
[2016-06-23] MEDS: DOCUSATE SODIUM 100 MG CAP PO SCH ×2 (05:30→17:29)
[2016-06-23] MEDS: LEVOTHYROXINE 100 MCG TAB PO SCH (06:10)
[2016-06-23 06:53] LABS: POTASSIUM 3.8 mmol/L (3.5-5.1)
[2016-06-23 06:56] LABS: CREATININE 3.68 mg/dl (0.61-1.24); PHOSPHORUS 4.2 mg/dl (2.5-4.9)
[2016-06-23 06:57] LABS: CALCIUM 8.5 mg/dl (8.4-10.2); MAGNESIUM 2.5 mg/dl (1.7-2.5)
[2016-06-23 07:16] LABS: BASOPHIL # 0.1 10^3/ul (0.0-0.1); BASOPHILS % 0.6 % (0.0-2.0); EOSINOPHILS # 0.2 10^3/ul (0.0-0.5); EOSINOPHILS % 2.2 % (0.0-7.0); HEMATOCRIT 30.6 % (42.0-52.0); HEMOGLOBIN 10.3 g/dl (14.0-18.0); LYMPHOCYTES # 1.8 10^3/ul (0.8-2.9); LYMPHOCYTES % 18.3 % (15.0-51.0); MEAN CORPUSCULAR HEMOGLOBIN 29.6 pg (29.0-33.0); MEAN CORPUSCULAR HGB CONC 33.5 g/dl (32.0-37.0); MEAN CORPUSCULAR VOLUME 88.5 fl (82.0-101.0); MONOCYTE # 0.8 10^3/ul (0.3-0.9); MONOCYTES % 7.8 % (0.0-11.0); NEUTROPHIL # 6.9 10^3/ul (1.6-7.5); NEUTROPHILS % 71.1 % (39.0-77.0); PLATELET COUNT 207 10^3/UL (140-440); RED BLOOD COUNT 3.46 10^6/ul (4.70-6.10); RED CELL DISTRIBUTION WIDTH 15.8 % (11.5-14.5); UNCORRECTED WBC 9.7 10^3/ul (4.8-10.8); WHITE BLOOD COUNT 9.7 10^3/ul (4.8-10.8)
[2016-06-23 07:26] LABS: CONDITION 1; LH ANALYZER COMMENTS 1
[2016-06-23 08:11] VITALS: BP 132/64; PULSE 76; RESP 18
[2016-06-23] MEDS: GABAPENTIN 300 MG CAP PO SCH (09:49)
[2016-06-23] MEDS: CLOZAPINE 100 MG TABLET PO SCH ×3 (09:49→20:42)
[2016-06-23] MEDS: ESCITALOPRAM 10 MG TAB PO SCH (09:49)
[2016-06-23] MEDS: MULTIVIT/CA CARB/B CMPLX/FA TAB PO SCH (09:49)
[2016-06-23] MEDS: POLYETHYLENE GLYCOL 17 GM PACKET PO SCH (09:49)
--- NOTE | 2016-06-23 10:56 | CONS ---
Date/Time of Note Date/Time of Note DATE: 06/23/16 TIME: 10:51 Consult Date/Type/Reason Admit Date/Time Jun 18, 2016 at 14:22 Initial Consult Date Subjective The patient is stable, no acute events overnight. No fevers, chills, nausea vomiting, no shortness of breath. continues good uo. poc reviewed with dr. kay Objective Vital Signs Date Time Temp Pulse Resp B/P Pulse Ox O2 Delivery O2 Flow Rate FiO2 06/23/16 08:11 98.4 76 18 132/64 94 Room Air Intake and Output 06/22/16 06/22/16 06/23/16 14:59 22:59 06:59 Intake Total 450 ml 1545 ml 1320 ml Output Total 900 ml Balance 450 ml 645 ml 1320 ml HEENT: Head is normocephalic. NECK: Supple. HEART: Regular rate. LUNGS: Show diminished breath sounds at the base. ABDOMEN: Soft, nontender to palpation. No rebound or guarding. EXTREMITIES: Negative for clubbing, cyanosis. No edema. DERMATOLOGIC: No rashes. MUSCULOSKELETAL: No joint effusions. NEUROLOGIC: No change in exam. Results/Medications Result Diagram: 06/23/16 0505 06/23/16 0505 Results 24 hrs Laboratory Tests Test 06/22/16 15:00 06/22/16 19:00 06/23/16 05:05 Anion Gap 20 H 18 H Blood Urea Nitrogen 45 H 46 H Calcium Level 8.1 L 8.5 Carbon Dioxide Level 19 L 19 L Chloride Level 110 113 H Creatinine 3.72 H 3.68 H Glucose Level 109 107 Potassium Level 3.7 3.8 Sodium Level 145 H 146 H Urine Bacteria MODERATE Urine Bilirubin NEGATIVE Urine Clarity CLEAR Urine Color LT. YELLOW Urine Glucose NEGATIVE Urine Hemoglobin NEGATIVE Urine Ketones NEGATIVE Urine Leukocyte Esterase 1+ H Urine Microscopic RBC NONE SEEN Urine Microscopic WBC 25-50 Urine Nitrite NEGATIVE Urine Osmolality 213 L Urine Random Creatinine 33.64 Urine Random Sodium 37 Urine Specific [place] <=1.005 L Urine Total Protein NEGATIVE Urine Transitional Epithelial Cells FEW Urine Urobilinogen 0.2 E.U./dL Urine pH 6.0 Basophils # 0.1 Basophils % 0.6 Blood Morphology Comment Eosinophils # 0.2 Eosinophils % 2.2 Hematocrit 30.6 L Hemoglobin 10.3 L Lymphocytes # 1.8 Lymphocytes % 18.3 Magnesium Level 2.5 Mean Corpuscular Hemoglobin 29.6 Mean Corpuscular Hemoglobin Concent 33.5 Mean Corpuscular Volume 88.5 Mean Platelet Volume 9.0 Monocytes # 0.8 Monocytes % 7.8 Neutrophils # 6.9 Neutrophils % 71.1 Nucleated Red Blood Cells # 0.0 Nucleated Red Blood Cells % 0.0 Phosphorus Level 4.2 Platelet Count 207 Red Blood Count 3.46 L Red Cell Distribution Width 15.8 H White Blood Count 9.7 Medications Current Medications Ondansetron HCl (Zofran Inj) 4 mg Q6H PRN IV NAUSEA AND/OR VOMITING; Start at 18:00 Acetaminophen (Tylenol Tab) 650 mg Q6H PRN PO PAIN LEVEL 1-3 OR FEVER; Start 06/18/16 at 18:00 Acetaminophen/ Hydrocodone Bitart ([place] (5/325)) 1 tab Q6H PRN PO MODERATE PAIN LEVEL 4-6; Start 06/18/16 at 18:00 Morphine Sulfate (morphine) 2 mg Q4H PRN IV SEVERE PAIN LEVEL 7-10; Start at 18:00 Docusate Sodium (Colace) 200 mg Q12H PO Last administered on 06/23/16at 05:30; Admin Dose 200 MG; Start 06/18/16 at 18:00 Magnesium Hydroxide (Milk Of Mag) 30 ml DAILY PRN PO CONSTIPATION; Start 06/18 at 18:00 Zolpidem Tartrate (Ambien) 5 mg QHS PRN PO SLEEP Last administered on at 22:00; Admin Dose 5 MG; Start 06/18/16 at 18:00 Alprazolam (Xanax) 0.5 mg BID PRN PO ANXIETY; Start 06/18/16 at 18:00 Atorvastatin Calcium (Lipitor) 10 mg QHS PO Last administered on 06/22/16at 20: 47; Admin Dose 10 MG; Start 06/18/16 at 21:00 Bisacodyl (Dulcolax Supp) 10 mg Q24H PRN [place] CONSTIPATION; Start 06/18/16 at 18 :00 Clonazepam (Klonopin) 0.25 mg TID PRN PO ANXIETY; Start 06/18/16 at 18:00 Escitalopram Oxalate (Lexapro) 20 mg DAILY PO Last administered on 06/23/16 09:49; Admin Dose 20 MG; Start 06/19/16 at 09:00 Gabapentin (Neurontin) 300 mg DAILY PO Last administered on 06/23/16 09:49; Admin Dose 300 MG; Start 06/19/16 at 09:00 Magnesium Hydroxide (Milk Of Mag) 30 ml DAILY PRN PO CONSTIPATION; Start 06/18 at 18:00 Mineral Oil (Fleet Mineral Oil Enema) 133 ml DAILY PRN [place] CONSTIPATION; Start 06/18/16 at 18:00 Polyethylene Glycol (Miralax) 17 gm DAILY PO Last administered on 06/23/16 09 :49; Admin Dose 17 GM; Start 06/18/16 at 18:00 Multivit/Ca Carb/ B Cmplx/FA/Prenat 1 tab 1 tab DAILY PO Last administered on 06/23/16 09:49; Admin Dose 1 TAB; Start 06/19/16 at 15:00 Ceftriaxone Sodium (Rocephin) 50 ml @ 100 mls/hr Q24H IVPB Last administered on 06/22/16 17:51; Admin Dose 100 MLS/HR; Start 06/18/16 at 18:00 Pantoprazole (Protonix Tab) 40 mg DAILY@06 PO Last administered on 06/23/16 05:30; Admin Dose 40 MG; Start 06/19/16 at 06:00 Clozapine (Clozaril) 400 mg QHS PO Last administered on 06/22/16 20:47; Admin Dose 400 MG; Start 06/18/16 at 21:00; Status Future hold Clozapine 225 mg 225 mg QAM PO Last administered on 06/23/16 09:49; Admin Dose 225 MG; Start 06/20/16 at 09:00 Dextrose (D5W) 1,000 ml @ 75 mls/hr [id number] IV Last administered on 05:32; Admin Dose 75 MLS/HR; Start 06/22/16 at 11:30 Assessment/Plan Chief Complaint/Hosp Course 1. Nonoliguric acute kidney injury with possible underlying chronic kidney disease from previous lithium exposure. Baseline renal function and baseline creatinine is unknown. Etiology of current acute kidney injury was felt to be secondary to hemodynamics, volume depletion. The patient's renal function has been slowly improving with IV fluids, again, unclear what baseline renal function is. At this point, continue current treatment plan. Continue supportive care, renally dose all meds, avoid nephrotoxins, continue gentle hydration. Of note, the patient's urinalysis has been bland, no evidence of active sediment. Renal ultrasound shows no evidence of obstruction. 2. A questionable history of diabetes insipidus, possibly due to previous lithium use. The patient currently is hypernatremic, sodium levels increased to 146. It is unclear if this is due to poor free water intake per patient or from polyuria. The patient does not seem to have polyuria on I's and O's, however, it is unclear if this is being adequately recorded. Plan at this point is to check a urine osmolarity and a serum osmolarity. If the patient's urine osmolarity is inappropriately low for this level of hypernatremia, would then reconsider placing the patient back on hydrochlorothiazide. will encourage the patient to increase free water intake. A diagnosis of central diabetes insipidus is less likely given the patient's clinical history and presentation. 3. Hypertension, etiology is felt to be secondary to volume depletion and sepsis. The patient is clinically improving. Continue to monitor. 4. Anemia of chronic disease. Monitor hemoglobin and hematocrit levels. 5. Mineral bone disorder. Monitor calcium and phosphorus levels. No need for phosphate binders. 6. Sepsis secondary to urinary tract infection, clinically improving. Continue current antibiotic regimen. 7. Syncope, etiology is multifactorial as stated above. Continue to monitor. 8. History of schizophrenia, psychosis, continue to monitor. Follow up with primary team. Continue Klonocatracho, Lexapro. Problems: DIMPLE CHAVEZ MD Jun 23, 2016 10:56
[2016-06-23] MEDS: CEFTRIAXONE 1 GM/50 ML (PMX) 50 ML IVPB SCH (17:28)
--- NOTE | 2016-06-23 17:41 | PN ---
Date/Time of Note Date/Time of Note DATE: 06/23/16 TIME: 17:37 Assessment/Plan VTE Prophylaxis VTE Prophylaxis Intervention: SCD's Lines/Catheters [facility] Peripheral IV Urinary Cath still in place: No Assessment/Plan Chief Complaint/Hosp Course 1. Sepsis secondary to urinary tract infection from Morganella species- improving Continue Rocephin IV per culture and sensitivity 2. Syncope secondary to orthostatic hypotension from dehydration and/or sepsis Carotid ultrasound shows no significant stenosis, 2D echo shows no etiology for syncopal episode, normal EF is noted with stage I diastolic heart failure Continue IV fluids and antibiotics 3. Acute versus chronic kidney disease-improving Likely secondary to dehydration, hold p.o. diuretics and continue IV fluids Nephrology consultation appreciated 4. History of schizophrenia Continue home medications. 5. History of hypertension Will continue to hold the patient's home antihypertensives as his blood pressure is low at this time 6. Diabetes insipidus possibly from history of lithium use Nephrology on the case, will resume patient's home diuretic regimen upon DC Prophylaxis. SCDs Problems: Subjective 24 Hr Interval Summary Constitutional: disoriented Exam/Review of Systems Vital Signs Vitals Vital Signs Date Time Temp Pulse Resp B/P Pulse Ox O2 Delivery O2 Flow Rate FiO2 06/23/16 08:11 98.4 76 18 132/64 94 Room Air Intake and Output 06/22/16 06/22/16 06/23/16 15:00 23:00 07:00 Intake Total 450 ml 1545 ml 1320 ml Output Total 900 ml Balance 450 ml 645 ml 1320 ml Exam Psych: confusion Respiratory: clear to auscultation Cardiovascular: regular rate and rhythm Gastrointestinal: soft, No distended Musculoskeletal: nl extremities to inspection Results Result Diagram: 06/23/16 0505 06/23/16 0505 Results 24 hrs Laboratory Tests Test 06/22/16 19:00 06/23/16 05:05 Urine Bacteria MODERATE Urine Bilirubin NEGATIVE Urine Clarity CLEAR Urine Color LT. YELLOW Urine Glucose NEGATIVE Urine Hemoglobin NEGATIVE Urine Ketones NEGATIVE Urine Leukocyte Esterase 1+ H Urine Microscopic RBC NONE SEEN Urine Microscopic WBC 25-50 Urine Nitrite NEGATIVE Urine Osmolality 213 L Urine Random Creatinine 33.64 Urine Random Sodium 37 Urine Specific [place] <=1.005 L Urine Total Protein NEGATIVE Urine Transitional Epithelial Cells FEW Urine Urobilinogen 0.2 E.U./dL Urine pH 6.0 Anion Gap 18 H Basophils # 0.1 Basophils % 0.6 Blood Morphology Comment Blood Urea Nitrogen 46 H Calcium Level 8.5 Carbon Dioxide Level 19 L Chloride Level 113 H Creatinine 3.68 H Eosinophils # 0.2 Eosinophils % 2.2 Glucose Level 107 Hematocrit 30.6 L Hemoglobin 10.3 L Lymphocytes # 1.8 Lymphocytes % 18.3 Magnesium Level 2.5 Mean Corpuscular Hemoglobin 29.6 Mean Corpuscular Hemoglobin Concent 33.5 Mean Corpuscular Volume 88.5 Mean Platelet Volume 9.0 Monocytes # 0.8 Monocytes % 7.8 Neutrophils # 6.9 Neutrophils % 71.1 Nucleated Red Blood Cells # 0.0 Nucleated Red Blood Cells % 0.0 Phosphorus Level 4.2 Platelet Count 207 Potassium Level 3.8 Red Blood Count 3.46 L Red Cell Distribution Width 15.8 H Sodium Level 146 H White Blood Count 9.7 Medications Medications Current Medications Ondansetron HCl (Zofran Inj) 4 mg Q6H PRN IV NAUSEA AND/OR VOMITING; Start at 18:00 Acetaminophen (Tylenol Tab) 650 mg Q6H PRN PO PAIN LEVEL 1-3 OR FEVER; Start 06/18/16 at 18:00 Acetaminophen/ Hydrocodone Bitart ([place] (5/325)) 1 tab Q6H PRN PO MODERATE PAIN LEVEL 4-6; Start 06/18/16 at 18:00 Morphine Sulfate (morphine) 2 mg Q4H PRN IV SEVERE PAIN LEVEL 7-10; Start at 18:00 Docusate Sodium (Colace) 200 mg Q12H PO Last administered on 06/23/16at 17:29; Admin Dose 200 MG; Start 06/18/16 at 18:00 Magnesium Hydroxide (Milk Of Mag) 30 ml DAILY PRN PO CONSTIPATION; Start 06/18 at 18:00 Zolpidem Tartrate (Ambien) 5 mg QHS PRN PO SLEEP Last administered on at 22:00; Admin Dose 5 MG; Start 06/18/16 at 18:00 Alprazolam (Xanax) 0.5 mg BID PRN PO ANXIETY; Start 06/18/16 at 18:00 Atorvastatin Calcium (Lipitor) 10 mg QHS PO Last administered on 06/22/16at 20: 47; Admin Dose 10 MG; Start 06/18/16 at 21:00 Bisacodyl (Dulcolax Supp) 10 mg Q24H PRN [place] CONSTIPATION; Start 06/18/16 at 18 :00 Clonazepam (Klonopin) 0.25 mg TID PRN PO ANXIETY; Start 06/18/16 at 18:00 Escitalopram Oxalate (Lexapro) 20 mg DAILY PO Last administered on 06/23/16 09:49; Admin Dose 20 MG; Start 06/19/16 at 09:00 Gabapentin (Neurontin) 300 mg DAILY PO Last administered on 06/23/16 09:49; Admin Dose 300 MG; Start 06/19/16 at 09:00 Magnesium Hydroxide (Milk Of Mag) 30 ml DAILY PRN PO CONSTIPATION; Start 06/18 at 18:00 Mineral Oil (Fleet Mineral Oil Enema) 133 ml DAILY PRN [place] CONSTIPATION; Start 06/18/16 at 18:00 Polyethylene Glycol (Miralax) 17 gm DAILY PO Last administered on 06/23/16 09 :49; Admin Dose 17 GM; Start 06/18/16 at 18:00 Multivit/Ca Carb/ B Cmplx/FA/Prenat 1 tab 1 tab DAILY PO Last administered on 06/23/16 09:49; Admin Dose 1 TAB; Start 06/19/16 at 15:00 Ceftriaxone Sodium (Rocephin) 50 ml @ 100 mls/hr Q24H IVPB Last administered on 06/23/16 17:28; Admin Dose 100 MLS/HR; Start 06/18/16 at 18:00 Pantoprazole (Protonix Tab) 40 mg DAILY@06 PO Last administered on 06/23/16 05:30; Admin Dose 40 MG; Start 06/19/16 at 06:00 Clozapine (Clozaril) 400 mg QHS PO Last administered on 06/22/16 20:47; Admin Dose 400 MG; Start 06/18/16 at 21:00; Status Future hold Clozapine 225 mg 225 mg QAM PO Last administered on 06/23/16 09:49; Admin Dose 225 MG; Start 06/20/16 at 09:00 Dextrose (D5W) 1,000 ml @ 75 mls/hr [id number] IV Last administered on 05:32; Admin Dose 75 MLS/HR; Start 06/22/16 at 11:30 SIENNA COTTO Jun 23, 2016 17:41
[2016-06-23 20:00] VITALS: BP 100/60; PULSE 88; RESP 22
[2016-06-23] MEDS: ATORVASTATIN 10 MG TAB PO SCH (20:42)
[2016-06-24 05:33] LABS: BASOPHIL # 0.1 10^3/ul (0.0-0.1); BASOPHILS % 0.7 % (0.0-2.0); EOSINOPHILS # 0.2 10^3/ul (0.0-0.5); HEMATOCRIT 30.4 % (42.0-52.0); HEMOGLOBIN 10.1 g/dl (14.0-18.0); LYMPHOCYTES # 2.5 10^3/ul (0.8-2.9); LYMPHOCYTES % 23.5 % (15.0-51.0); MEAN CORPUSCULAR HEMOGLOBIN 29.2 pg (29.0-33.0); MEAN CORPUSCULAR HGB CONC 33.3 g/dl (32.0-37.0); MEAN CORPUSCULAR VOLUME 87.6 fl (82.0-101.0); MEAN PLATELET VOLUME 8.9 fl (7.4-10.4); MONOCYTE # 0.7 10^3/ul (0.3-0.9); MONOCYTES % 6.4 % (0.0-11.0); NEUTROPHIL # 7.3 10^3/ul (1.6-7.5); NEUTROPHILS % 67.4 % (39.0-77.0); PLATELET COUNT 222 10^3/UL (140-440); RED BLOOD COUNT 3.48 10^6/ul (4.70-6.10); RED CELL DISTRIBUTION WIDTH 15.5 % (11.5-14.5); UNCORRECTED WBC 10.8 10^3/ul (4.8-10.8); WHITE BLOOD COUNT 10.8 10^3/ul (4.8-10.8)
[2016-06-24 05:37] LABS: CONDITION 1; LH ANALYZER COMMENTS 1
[2016-06-24 05:39] LABS: POTASSIUM 3.9 mmol/L (3.5-5.1)
[2016-06-24 05:42] LABS: CREATININE 3.6 mg/dl (0.61-1.24)
[2016-06-24 05:43] LABS: CALCIUM 8.3 mg/dl (8.4-10.2); MAGNESIUM 2.5 mg/dl (1.7-2.5); PHOSPHORUS 4.1 mg/dl (2.5-4.9)
[2016-06-24] MEDS: LEVOTHYROXINE 100 MCG TAB PO SCH (06:22)
[2016-06-24] MEDS: DOCUSATE SODIUM 100 MG CAP PO SCH ×2 (06:22→17:38)
[2016-06-24] MEDS: PANTOPRAZOLE (EC) 40 MG TAB PO SCH (06:22)
[2016-06-24 07:54] VITALS: BP 114/64; PULSE 85; RESP 18
[2016-06-24] MEDS: GABAPENTIN 300 MG CAP PO SCH (08:14)
[2016-06-24] MEDS: ESCITALOPRAM 10 MG TAB PO SCH (08:14)
[2016-06-24] MEDS: DEXTROSE 5% 1,000 ML IV SCH (08:14)
[2016-06-24] MEDS: POLYETHYLENE GLYCOL 17 GM PACKET PO SCH (08:14)
[2016-06-24] MEDS: MULTIVIT/CA CARB/B CMPLX/FA TAB PO SCH (08:14)
[2016-06-24] MEDS: CLOZAPINE 100 MG TABLET PO SCH ×3 (08:15→20:16)
--- NOTE | 2016-06-24 12:41 | CONS ---
Date/Time of Note Date/Time of Note DATE: 06/24/16 TIME: 12:40 Consult Date/Type/Reason Admit Date/Time Jun 18, 2016 at 14:22 Subjective The patient is stable, no acute events overnight. No fevers, chills, nausea vomiting, no shortness of breath. continues good uo. poc reviewed with dr. eliza CORDOBA: Head is normocephalic. NECK: Supple. HEART: Regular rate. LUNGS: Show diminished breath sounds at the base. ABDOMEN: Soft, nontender to palpation. No rebound or guarding. EXTREMITIES: Negative for clubbing, cyanosis. No edema. DERMATOLOGIC: No rashes. MUSCULOSKELETAL: No joint effusions. NEUROLOGIC: No change in exam. Objective Vital Signs Date Time Temp Pulse Resp B/P Pulse Ox O2 Delivery O2 Flow Rate FiO2 06/24/16 07:54 97.5 85 18 114/64 98 Room Air Intake and Output 06/23/16 06/23/16 06/24/16 14:59 22:59 06:59 Intake Total 2080 ml 870 ml Balance 2080 ml 870 ml Results/Medications Result Diagram: 06/24/16 0420 06/24/16 0420 Results 24 hrs Laboratory Tests Test 06/24/16 04:20 Anion Gap 14 Basophils # 0.1 Basophils % 0.7 Blood Morphology Comment Blood Urea Nitrogen 40 H Calcium Level 8.3 L Carbon Dioxide Level 20 L Chloride Level 112 H Creatinine 3.60 H Eosinophils # 0.2 Eosinophils % 2.0 Glucose Level 104 Hematocrit 30.4 L Hemoglobin 10.1 L Lymphocytes # 2.5 Lymphocytes % 23.5 Magnesium Level 2.5 Mean Corpuscular Hemoglobin 29.2 Mean Corpuscular Hemoglobin Concent 33.3 Mean Corpuscular Volume 87.6 Mean Platelet Volume 8.9 Monocytes # 0.7 Monocytes % 6.4 Neutrophils # 7.3 Neutrophils % 67.4 Nucleated Red Blood Cells # 0.0 Nucleated Red Blood Cells % 0.0 Phosphorus Level 4.1 Platelet Count 222 Potassium Level 3.9 Red Blood Count 3.48 L Red Cell Distribution Width 15.5 H Sodium Level 142 White Blood Count 10.8 Medications Current Medications Ondansetron HCl (Zofran Inj) 4 mg Q6H PRN IV NAUSEA AND/OR VOMITING; Start at 18:00 Acetaminophen (Tylenol Tab) 650 mg Q6H PRN PO PAIN LEVEL 1-3 OR FEVER; Start 06/18/16 at 18:00 Acetaminophen/ Hydrocodone Bitart ([place] (5/325)) 1 tab Q6H PRN PO MODERATE PAIN LEVEL 4-6; Start 06/18/16 at 18:00 Morphine Sulfate (morphine) 2 mg Q4H PRN IV SEVERE PAIN LEVEL 7-10; Start at 18:00 Docusate Sodium (Colace) 200 mg Q12H PO Last administered on 06/24/16at 06:22; Admin Dose 200 MG; Start 06/18/16 at 18:00 Magnesium Hydroxide (Milk Of Mag) 30 ml DAILY PRN PO CONSTIPATION; Start 06/18 at 18:00 Zolpidem Tartrate (Ambien) 5 mg QHS PRN PO SLEEP Last administered on at 22:00; Admin Dose 5 MG; Start 06/18/16 at 18:00 Alprazolam (Xanax) 0.5 mg BID PRN PO ANXIETY; Start 06/18/16 at 18:00 Atorvastatin Calcium (Lipitor) 10 mg QHS PO Last administered on 06/23/16at 20: 42; Admin Dose 10 MG; Start 06/18/16 at 21:00 Bisacodyl (Dulcolax Supp) 10 mg Q24H PRN [place] CONSTIPATION; Start 06/18/16 at 18 :00 Clonazepam (Klonopin) 0.25 mg TID PRN PO ANXIETY; Start 06/18/16 at 18:00 Escitalopram Oxalate (Lexapro) 20 mg DAILY PO Last administered on 06/24/16at 08:14; Admin Dose 20 MG; Start 06/19/16 at 09:00 Gabapentin (Neurontin) 300 mg DAILY PO Last administered on 06/24/16at 08:14; Admin Dose 300 MG; Start 06/19/16 at 09:00 Magnesium Hydroxide (Milk Of Mag) 30 ml DAILY PRN PO CONSTIPATION; Start 06/18 at 18:00 Mineral Oil (Fleet Mineral Oil Enema) 133 ml DAILY PRN [place] CONSTIPATION; Start 06/18/16 at 18:00 Polyethylene Glycol (Miralax) 17 gm DAILY PO Last administered on 06/24/16at 08 :14; Admin Dose 17 GM; Start 06/18/16 at 18:00 Multivit/Ca Carb/ B Cmplx/FA/Prenat 1 tab 1 tab DAILY PO Last administered on 06/24/16at 08:14; Admin Dose 1 TAB; Start 06/19/16 at 15:00 Ceftriaxone Sodium (Rocephin) 50 ml @ 100 mls/hr Q24H IVPB Last administered on 06/23/16at 17:28; Admin Dose 100 MLS/HR; Start 06/18/16 at 18:00 Pantoprazole (Protonix Tab) 40 mg DAILY@06 PO Last administered on 06/24/16 06:22; Admin Dose 40 MG; Start 06/19/16 at 06:00 Clozapine (Clozaril) 400 mg QHS PO Last administered on 06/23/16at 20:42; Admin Dose 400 MG; Start 06/18/16 at 21:00; Status Future hold Clozapine 225 mg 225 mg QAM PO Last administered on 06/24/16at 08:15; Admin Dose 225 MG; Start 06/20/16 at 09:00 Dextrose (D5W) 1,000 ml @ 75 mls/hr [id number] IV Last administered on 08:14; Admin Dose 75 MLS/HR; Start 06/22/16 at 11:30 Assessment/Plan Chief Complaint/Hosp Course 1. Nonoliguric acute kidney injury with possible underlying chronic kidney disease from previous lithium exposure. Baseline renal function and baseline creatinine is unknown. Etiology of current acute kidney injury was felt to be secondary to hemodynamics, volume depletion. The patient's renal function has been slowly improving with IV fluids, again, unclear what baseline renal function is. At this point, continue current treatment plan. Continue supportive care, renally dose all meds, avoid nephrotoxins, continue gentle hydration. Of note, the patient's urinalysis has been bland, no evidence of active sediment. Renal ultrasound shows no evidence of obstruction. 2. A questionable history of diabetes insipidus, possibly due to previous lithium use. The patient currently is hypernatremic, sodium levels increased to 146. It is unclear if this is due to poor free water intake per patient or from polyuria. The patient does not seem to have polyuria on I's and O's, however, it is unclear if this is being adequately recorded. Plan at this point is to check a urine osmolarity and a serum osmolarity. If the patient's urine osmolarity is inappropriately low for this level of hypernatremia, would then reconsider placing the patient back on hydrochlorothiazide. will encourage the patient to increase free water intake. A diagnosis of central diabetes insipidus is less likely given the patient's clinical history and presentation. 3. Hypertension, etiology is felt to be secondary to volume depletion and sepsis. The patient is clinically improving. Continue to monitor. 4. Anemia of chronic disease. Monitor hemoglobin and hematocrit levels. 5. Mineral bone disorder. Monitor calcium and phosphorus levels. No need for phosphate binders. 6. Sepsis secondary to urinary tract infection, clinically improving. Continue current antibiotic regimen. 7. Syncope, etiology is multifactorial as stated above. Continue to monitor. 8. History of schizophrenia, psychosis, continue to monitor. Follow up with primary team. Continue Ricki Moctezuma. Problems: DIMPLE CHAVEZ MD Jun 24, 2016 12:41
--- NOTE | 2016-06-24 14:06 | PN ---
Date/Time of Note Date/Time of Note DATE: 06/24/16 TIME: 14:00 Assessment/Plan VTE Prophylaxis VTE Prophylaxis Intervention: SCD's Lines/Catheters [facility] Peripheral IV Urinary Cath still in place: No Assessment/Plan Chief Complaint/Hosp Course 1. Sepsis secondary to urinary tract infection from Morganella species- resolving Continue Rocephin IV per culture and sensitivity 2. Syncope secondary to orthostatic hypotension from dehydration and/or sepsis- resolving Carotid ultrasound shows no significant stenosis, 2D echo shows no etiology for syncopal episode, normal EF is noted with stage I diastolic heart failure Continue IV fluids and antibiotics 3. Acute versus chronic kidney disease-improving Likely secondary to dehydration, hold p.o. diuretics and continue IV fluids Nephrology consultation appreciated 4. History of schizophrenia Continue home medications. 5. History of hypertension Will continue to hold the patient's home antihypertensives as his blood pressure is low at this time 6. Possible diabetes insipidus possibly from history of lithium use-no significantly elevated urine output at this time to suggest DI Nephrology on the case, will resume patient's home diuretic regimen upon DC 7. Debility Continue PT, patient having difficulty ambulating, resides in a board and care according to family is weaker than his baseline, continue PT for now and if the patient's strength improves tomorrow then consider discharging back to his board and care otherwise if his facility cannot accept patient in his current weakened state he may need transfer to rehab facility, discuss with protective services case worker tomorrow Prophylaxis. SCDs Problems: Subjective 24 Hr Interval Summary Constitutional: no complaints Exam/Review of Systems Vital Signs Vitals Vital Signs Date Time Temp Pulse Resp B/P Pulse Ox O2 Delivery O2 Flow Rate FiO2 06/24/16 07:54 97.5 85 18 114/64 98 Room Air Intake and Output 06/23/16 06/23/16 06/24/16 15:00 23:00 07:00 Intake Total 2080 ml 870 ml Balance 2080 ml 870 ml Exam Constitutional: alert, oriented Respiratory: clear to auscultation Cardiovascular: regular rate and rhythm Gastrointestinal: soft, No distended Musculoskeletal: nl extremities to inspection Results Result Diagram: 06/24/16 0420 06/24/16 042 Results 24 hrs Laboratory Tests Test 06/24/16 04:20 Anion Gap 14 Basophils # 0.1 Basophils % 0.7 Blood Morphology Comment Blood Urea Nitrogen 40 H Calcium Level 8.3 L Carbon Dioxide Level 20 L Chloride Level 112 H Creatinine 3.60 H Eosinophils # 0.2 Eosinophils % 2.0 Glucose Level 104 Hematocrit 30.4 L Hemoglobin 10.1 L Lymphocytes # 2.5 Lymphocytes % 23.5 Magnesium Level 2.5 Mean Corpuscular Hemoglobin 29.2 Mean Corpuscular Hemoglobin Concent 33.3 Mean Corpuscular Volume 87.6 Mean Platelet Volume 8.9 Monocytes # 0.7 Monocytes % 6.4 Neutrophils # 7.3 Neutrophils % 67.4 Nucleated Red Blood Cells # 0.0 Nucleated Red Blood Cells % 0.0 Phosphorus Level 4.1 Platelet Count 222 Potassium Level 3.9 Red Blood Count 3.48 L Red Cell Distribution Width 15.5 H Sodium Level 142 White Blood Count 10.8 Medications Medications Current Medications Ondansetron HCl (Zofran Inj) 4 mg Q6H PRN IV NAUSEA AND/OR VOMITING; Start at 18:00 Acetaminophen (Tylenol Tab) 650 mg Q6H PRN PO PAIN LEVEL 1-3 OR FEVER; Start 06/18/16 at 18:00 Acetaminophen/ Hydrocodone Bitart ([place] (5/325)) 1 tab Q6H PRN PO MODERATE PAIN LEVEL 4-6; Start 06/18/16 at 18:00 Morphine Sulfate (morphine) 2 mg Q4H PRN IV SEVERE PAIN LEVEL 7-10; Start at 18:00 Docusate Sodium (Colace) 200 mg Q12H PO Last administered on 06/24/16at 06:22; Admin Dose 200 MG; Start 06/18/16 at 18:00 Magnesium Hydroxide (Milk Of Mag) 30 ml DAILY PRN PO CONSTIPATION; Start 06/18 at 18:00 Zolpidem Tartrate (Ambien) 5 mg QHS PRN PO SLEEP Last administered on at 22:00; Admin Dose 5 MG; Start 06/18/16 at 18:00 Alprazolam (Xanax) 0.5 mg BID PRN PO ANXIETY; Start 06/18/16 at 18:00 Atorvastatin Calcium (Lipitor) 10 mg QHS PO Last administered on 06/23/16at 20: 42; Admin Dose 10 MG; Start 06/18/16 at 21:00 Bisacodyl (Dulcolax Supp) 10 mg Q24H PRN [place] CONSTIPATION; Start 06/18/16 at 18 :00 Clonazepam (Klonopin) 0.25 mg TID PRN PO ANXIETY; Start 06/18/16 at 18:00 Escitalopram Oxalate (Lexapro) 20 mg DAILY PO Last administered on 06/24/16 08:14; Admin Dose 20 MG; Start 06/19/16 at 09:00 Gabapentin (Neurontin) 300 mg DAILY PO Last administered on 06/24/16 08:14; Admin Dose 300 MG; Start 06/19/16 at 09:00 Magnesium Hydroxide (Milk Of Mag) 30 ml DAILY PRN PO CONSTIPATION; Start 06/18 at 18:00 Mineral Oil (Fleet Mineral Oil Enema) 133 ml DAILY PRN [place] CONSTIPATION; Start 06/18/16 at 18:00 Polyethylene Glycol (Miralax) 17 gm DAILY PO Last administered on 06/24/16 08 :14; Admin Dose 17 GM; Start 06/18/16 at 18:00 Multivit/Ca Carb/ B Cmplx/FA/Prenat 1 tab 1 tab DAILY PO Last administered on 06/24/16 08:14; Admin Dose 1 TAB; Start 06/19/16 at 15:00 Ceftriaxone Sodium (Rocephin) 50 ml @ 100 mls/hr Q24H IVPB Last administered on 06/23/16 17:28; Admin Dose 100 MLS/HR; Start 06/18/16 at 18:00 Pantoprazole (Protonix Tab) 40 mg DAILY@06 PO Last administered on 06/24/16 06:22; Admin Dose 40 MG; Start 06/19/16 at 06:00 Clozapine (Clozaril) 400 mg QHS PO Last administered on 06/23/16 20:42; Admin Dose 400 MG; Start 06/18/16 at 21:00; Status Future hold Clozapine 225 mg 225 mg QAM PO Last administered on 06/24/16 08:15; Admin Dose 225 MG; Start 06/20/16 at 09:00 Dextrose (D5W) 1,000 ml @ 75 mls/hr [id number] IV Last administered on 08:14; Admin Dose 75 MLS/HR; Start 06/22/16 at 11:30 SIENNA COTTO 25, 2016 14:06
[2016-06-24] MEDS: CEFTRIAXONE 1 GM/50 ML (PMX) 50 ML IVPB SCH (17:38)
[2016-06-24 20:00] VITALS: BP 110/73; PULSE 89; RESP 21
[2016-06-24] MEDS: ATORVASTATIN 10 MG TAB PO SCH (20:16)
[2016-06-25] MEDS: DEXTROSE 5% 1,000 ML IV SCH ×2 (00:10→17:09)
[2016-06-25 05:23] LABS: BASOPHIL # 0.1 10^3/ul (0.0-0.1); BASOPHILS % 0.7 % (0.0-2.0); EOSINOPHILS # 0.2 10^3/ul (0.0-0.5); EOSINOPHILS % 1.7 % (0.0-7.0); HEMATOCRIT 31.4 % (42.0-52.0); HEMOGLOBIN 10.4 g/dl (14.0-18.0); LYMPHOCYTES # 2.1 10^3/ul (0.8-2.9); LYMPHOCYTES % 17.3 % (15.0-51.0); MEAN CORPUSCULAR HEMOGLOBIN 29.4 pg (29.0-33.0); MEAN CORPUSCULAR VOLUME 88.9 fl (82.0-101.0); MEAN PLATELET VOLUME 8.5 fl (7.4-10.4); MONOCYTE # 0.8 10^3/ul (0.3-0.9); MONOCYTES % 6.7 % (0.0-11.0); NEUTROPHIL # 8.7 10^3/ul (1.6-7.5); NEUTROPHILS % 73.6 % (39.0-77.0); PLATELET COUNT 234 10^3/UL (140-440); RED BLOOD COUNT 3.54 10^6/ul (4.70-6.10); RED CELL DISTRIBUTION WIDTH 15.7 % (11.5-14.5); UNCORRECTED WBC 11.9 10^3/ul (4.8-10.8); WHITE BLOOD COUNT 11.9 10^3/ul (4.8-10.8)
[2016-06-25 05:24] LABS: CONDITION 1; LH ANALYZER COMMENTS 1
[2016-06-25 05:36] LABS: POTASSIUM 3.6 mmol/L (3.5-5.1)
[2016-06-25 05:39] LABS: CREATININE 3.58 mg/dl (0.61-1.24)
[2016-06-25 05:40] LABS: CALCIUM 8.4 mg/dl (8.4-10.2)
[2016-06-25] MEDS: DOCUSATE SODIUM 100 MG CAP PO SCH ×2 (05:57→17:08)
[2016-06-25] MEDS: PANTOPRAZOLE (EC) 40 MG TAB PO SCH (05:57)
[2016-06-25] MEDS: LEVOTHYROXINE 100 MCG TAB PO SCH (05:58)
[2016-06-25 08:00] VITALS: BP 110/65; PULSE 85; RESP 18
[2016-06-25] MEDS: POLYETHYLENE GLYCOL 17 GM PACKET PO SCH (09:16)
[2016-06-25] MEDS: CLOZAPINE 100 MG TABLET PO SCH ×3 (09:16→20:18)
[2016-06-25] MEDS: ESCITALOPRAM 10 MG TAB PO SCH (09:16)
[2016-06-25] MEDS: MULTIVIT/CA CARB/B CMPLX/FA TAB PO SCH (09:17)
[2016-06-25] MEDS: GABAPENTIN 300 MG CAP PO SCH (09:17)
--- NOTE | 2016-06-25 10:12 | PN ---
Date/Time of Note Date/Time of Note DATE: 06/25/16 TIME: 10:08 Assessment/Plan VTE Prophylaxis VTE Prophylaxis Intervention: LMWH Lines/Catheters IV Catheter Type (from Nrs): Peripheral IV Urinary Cath still in place: No Assessment/Plan Chief Complaint/Hosp Course A/P 1) Severe Sepsis; Acute Cystitis related; resolving morganelli infection. Stable , finish levaquin 2) ARF/CKD; stable 3) Hydronephrosis; mild/ probably asymptomatic 4) DI? U osm appears low 5) Chr Schizophrenia 6) Anemia 7) Ftt; snf vs Ac Rehab vs back to Assisted Living Problems: Subjective 24 Hr Interval Summary Free Text/Dictation Coverage for Hospitalist Group- S- events noted. no active distress. Exam/Review of Systems Vital Signs Vitals Vital Signs Date Time Temp Pulse Resp B/P Pulse Ox O2 Delivery O2 Flow Rate FiO2 06/25/16 08:00 98.3 85 18 110/65 100 Room Air Intake and Output 06/24/16 06/24/16 06/25/16 15:00 23:00 07:00 Intake Total 1775 ml 910 ml Output Total 400 ml 900 ml Balance 1375 ml 10 ml Exam Respiratory: clear to auscultation Cardiovascular: regular rate and rhythm Gastrointestinal: non-tender, soft Results Result Diagram: 06/25/16 0448 06/25/168 Results 24 hrs Laboratory Tests Test 06/25/16 04:48 Anion Gap 17 H Basophils # 0.1 Basophils % 0.7 Blood Morphology Comment Blood Urea Nitrogen 38 H Calcium Level 8.4 Carbon Dioxide Level 21 Chloride Level 111 H Creatinine 3.58 H Eosinophils # 0.2 Eosinophils % 1.7 Glucose Level 116 Hematocrit 31.4 L Hemoglobin 10.4 L Lymphocytes # 2.1 Lymphocytes % 17.3 Mean Corpuscular Hemoglobin 29.4 Mean Corpuscular Hemoglobin Concent 33.0 Mean Corpuscular Volume 88.9 Mean Platelet Volume 8.5 Monocytes # 0.8 Monocytes % 6.7 Neutrophils # 8.7 H Neutrophils % 73.6 Nucleated Red Blood Cells # 0.0 Nucleated Red Blood Cells % 0.0 Platelet Count 234 Potassium Level 3.6 Red Blood Count 3.54 L Red Cell Distribution Width 15.7 H Sodium Level 145 H White Blood Count 11.9 H Medications Medications Current Medications Ondansetron HCl (Zofran Inj) 4 mg Q6H PRN IV NAUSEA AND/OR VOMITING; Start at 18:00 Acetaminophen (Tylenol Tab) 650 mg Q6H PRN PO PAIN LEVEL 1-3 OR FEVER; Start 06/18/16 at 18:00 Acetaminophen/ Hydrocodone Bitart ([place] (5/325)) 1 tab Q6H PRN PO MODERATE PAIN LEVEL 4-6; Start 06/18/16 at 18:00 Morphine Sulfate (morphine) 2 mg Q4H PRN IV SEVERE PAIN LEVEL 7-10; Start at 18:00 Docusate Sodium (Colace) 200 mg Q12H PO Last administered on 06/25/16at 05:57; Admin Dose 200 MG; Start 06/18/16 at 18:00 Magnesium Hydroxide (Milk Of Mag) 30 ml DAILY PRN PO CONSTIPATION; Start 06/18 at 18:00 Zolpidem Tartrate (Ambien) 5 mg QHS PRN PO SLEEP Last administered on at 22:00; Admin Dose 5 MG; Start 06/18/16 at 18:00 Alprazolam (Xanax) 0.5 mg BID PRN PO ANXIETY; Start 06/18/16 at 18:00 Atorvastatin Calcium (Lipitor) 10 mg QHS PO Last administered on 06/24/16at 20: 16; Admin Dose 10 MG; Start 06/18/16 at 21:00 Bisacodyl (Dulcolax Supp) 10 mg Q24H PRN [place] CONSTIPATION; Start 06/18/16 at 18 :00 Clonazepam (Klonopin) 0.25 mg TID PRN PO ANXIETY; Start 06/18/16 at 18:00 Escitalopram Oxalate (Lexapro) 20 mg DAILY PO Last administered on 06/25/16at 09:16; Admin Dose 20 MG; Start 06/19/16 at 09:00 Gabapentin (Neurontin) 300 mg DAILY PO Last administered on 06/25/16at 09:17; Admin Dose 300 MG; Start 06/19/16 at 09:00 Mineral Oil (Fleet Mineral Oil Enema) 133 ml DAILY PRN [place] CONSTIPATION; Start 06/18/16 at 18:00 Polyethylene Glycol (Miralax) 17 gm DAILY PO Last administered on 06/25/16at 09 :16; Admin Dose 17 GM; Start 06/18/16 at 18:00 Multivit/Ca Carb/ B Cmplx/FA/Prenat 1 tab 1 tab DAILY PO Last administered on 06/25/16at 09:17; Admin Dose 1 TAB; Start 06/19/16 at 15:00 Ceftriaxone Sodium (Rocephin) 50 ml @ 100 mls/hr Q24H IVPB Last administered on 06/24/16at 17:38; Admin Dose 100 MLS/HR; Start 06/18/16 at 18:00 Pantoprazole (Protonix Tab) 40 mg DAILY@06 PO Last administered on 06/25/16at 05:57; Admin Dose 40 MG; Start 06/19/16 at 06:00 Clozapine (Clozaril) 400 mg QHS PO Last administered on 06/24/16at 20:16; Admin Dose 400 MG; Start 06/18/16 at 21:00; Status Future hold Clozapine 225 mg 225 mg QAM PO Last administered on 06/25/16at 09:16; Admin Dose 225 MG; Start 06/20/16 at 09:00 Dextrose (D5W) 1,000 ml @ 75 mls/hr [id number] IV Last administered on at 00:10; Admin Dose 75 MLS/HR; Start 06/22/16 at 11:30 HOA AZAR MD Jun 25, 2016 10:11
[2016-06-25] MEDS: ENOXAPARIN 30 MG/0.3 ML SYG SC SCH (11:24)
[2016-06-25] MEDS: HYDROCHLOROTHIAZIDE 25 MG TAB PO SCH (12:13)
--- NOTE | 2016-06-25 12:20 | PN ---
DATE: 06/25/2016 SUBJECTIVE: The patient is stable, no acute events overnight. No fevers, chills, nausea/vomiting, no shortness of breath. OBJECTIVE: VITAL SIGNS: Blood pressure 110/65, respiration 18, pulse 85, temperature 98.3. I's AND O'S: The patient 2.6 liters in with multiple voids not adequately recorded. HEENT: Head is normocephalic. NECK: Supple. HEART: Regular rate. LUNGS: Show diminished breath sounds at base. ABDOMEN: Soft, nontender to palpation. No rebound or guarding. EXTREMITIES: Negative for clubbing, cyanosis, edema. DERMATOLOGIC: No rashes. MUSCULOSKELETAL: No joint effusions. NEUROLOGIC: No change in exam. MEDICATIONS: The patient's medications have been reviewed. LABORATORY DATA: Shows a sodium 145, potassium 3.6, chloride 111, BUN 38, creatinine 3.58. White c ount 11.9, hemoglobin 10.4, hematocrit 31.4, platelet count is 234. The patient's repeat urinalysis shows a urine osmolarity of 213. Sodium 137. ASSESSMENT AND PLAN: 1. Nonoliguric acute kidney injury, with possible underlying chronic kidney disease from previous l ithium exposure. The patient's etiology of acute kidney injury was secondary to hemodynamics. [place] l function has improved with IV hydration and creatinine appears to be stabilizing around 3.6 mg/dL, which may be patient's underlying baseline. At this point, continue current treatment plan, suppor tive care, renally dose all meds, avoid nephrotoxins. 2. 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 Will reintr oduce the patient's diuretics as he is currently hypernatremic. Additionally, urine osmolarities ar e consistent with incomplete diabetes insipidus. The patient's urine osmolarities were 211, which i s inappropriately low for his level of hypernatremia. Plan therefore at this time is continue D5W, continue to encourage free water intake. Will resume hydrochlorothiazide and amiloride. Monitor re nal function and sodium levels closely. 3. Hypotension, improved. Continue to monitor. 4. Anemia of chronic disease. Continue to monitor hemoglobin and hematocrit levels. 5. Mineral bone disorder. Continue to monitor calcium and phosphorus levels. No need for phosphat e binders. 6. Sepsis secondary to urinary tract infection, clinically improving. Continue current antibiotic regimen. 7. Status post syncope. 8. History of schizophrenia, psychosis, continue to monitor, continue medical management. Dictated By: RADHAMES YIP/IVONE Conf#: [id number] DID#: [id number]
[2016-06-25 20:00] VITALS: BP 102/60; PULSE 89; RESP 20
[2016-06-25] MEDS: ATORVASTATIN 10 MG TAB PO SCH (20:17)
[2016-06-26 05:55] LABS: INR 1.05; PROTIME 13.7 Sec (12.2-14.2); PT RATIO 1.1
[2016-06-26 05:56] LABS: ALBUMIN 3.3 g/dl (3.3-4.9)
[2016-06-26 05:57] LABS: POTASSIUM 3.6 mmol/L (3.5-5.1)
[2016-06-26 05:59] LABS: ALBUMIN/GLOBULIN RATIO 1.06; CREATININE 3.68 mg/dl (0.61-1.24); TOTAL PROTEIN 6.4 g/dl (6.1-8.1)
[2016-06-26 06:00] LABS: BASOPHIL # 0.1 10^3/ul (0.0-0.1); BASOPHILS % 0.7 % (0.0-2.0); CALCIUM 8.6 mg/dl (8.4-10.2); EOSINOPHILS # 0.2 10^3/ul (0.0-0.5); HEMOGLOBIN 10.6 g/dl (14.0-18.0); LYMPHOCYTES # 2.8 10^3/ul (0.8-2.9); LYMPHOCYTES % 23.7 % (15.0-51.0); MEAN CORPUSCULAR HEMOGLOBIN 30.1 pg (29.0-33.0); MEAN CORPUSCULAR HGB CONC 34.3 g/dl (32.0-37.0); MEAN CORPUSCULAR VOLUME 87.7 fl (82.0-101.0); MEAN PLATELET VOLUME 8.6 fl (7.4-10.4); MONOCYTE # 0.7 10^3/ul (0.3-0.9); MONOCYTES % 6.1 % (0.0-11.0); NEUTROPHIL # 8.1 10^3/ul (1.6-7.5); NEUTROPHILS % 67.5 % (39.0-77.0); PLATELET COUNT 244 10^3/UL (140-440); RED BLOOD COUNT 3.53 10^6/ul (4.70-6.10); RED CELL DISTRIBUTION WIDTH 15.3 % (11.5-14.5); UNCORRECTED WBC 11.9 10^3/ul (4.8-10.8); WHITE BLOOD COUNT 11.9 10^3/ul (4.8-10.8)
[2016-06-26 06:11] LABS: CONDITION 1; LH ANALYZER COMMENTS 1
[2016-06-26] MEDS: DOCUSATE SODIUM 100 MG CAP PO SCH ×2 (06:32→17:08)
[2016-06-26] MEDS: PANTOPRAZOLE (EC) 40 MG TAB PO SCH (06:33)
[2016-06-26] MEDS: LEVOTHYROXINE 100 MCG TAB PO SCH (06:33)
[2016-06-26] MEDS: LEVOFLOXACIN 250 MG TAB PO SCH (06:33)
[2016-06-26] MEDS: DEXTROSE 5% 1,000 ML IV SCH (06:34)
[2016-06-26] MEDS: GABAPENTIN 300 MG CAP PO SCH (08:54)
[2016-06-26] MEDS: POLYETHYLENE GLYCOL 17 GM PACKET PO SCH (08:54)
[2016-06-26] MEDS: MULTIVIT/CA CARB/B CMPLX/FA TAB PO SCH (08:54)
[2016-06-26] MEDS: ESCITALOPRAM 10 MG TAB PO SCH (08:54)
[2016-06-26] MEDS: AMILORIDE 5 MG TAB PO SCH (08:55)
[2016-06-26] MEDS: HYDROCHLOROTHIAZIDE 25 MG TAB PO SCH (08:55)
[2016-06-26 09:00] VITALS: BP 104/67; PULSE 84; RESP 18
--- NOTE | 2016-06-26 10:45 | PN ---
Date/Time of Note Date/Time of Note DATE: 06/26/16 TIME: 10:42 Assessment/Plan VTE Prophylaxis VTE Prophylaxis Intervention: LMWH Lines/Catheters IV Catheter Type (from Nrs): Peripheral IV Urinary Cath still in place: No Assessment/Plan Chief Complaint/Hosp Course A/P 1) Severe Sepsis; Acute Cystitis related; stable, finishing levaquin for morganelli infection. 2) ARF/CKD; stable; cont outpt HD 3) Hydronephrosis; mild/ probably asymptomatic. HO temporary stenting ~ [facility] ? 4) DI. U osm appears low; will monitor off ivf. 5) Chr Schizophrenia 6) Anemia 7) Ftt; snf vs Ac Rehab vs back to Assisted Living 8) Chr urinary retention; Urology ~ [place] recommended straight cath Q8hrs Problems: Exam/Review of Systems Vital Signs Vitals Vital Signs Date Time Temp Pulse Resp B/P Pulse Ox O2 Delivery O2 Flow Rate FiO2 06/25/16 20:00 98.5 89 20 102/60 99 Room Air Intake and Output 06/25/16 06/25/16 06/26/16 15:00 23:00 07:00 Intake Total 1220 ml 1537 ml Output Total 1100 ml 2200 ml Balance 120 ml -663 ml Results Result Diagram: 06/26/16 0458 06/26/16 0458 Results 24 hrs Laboratory Tests Test 06/26/16 04:58 Alanine Aminotransferase (ALT/SGPT) 44 Albumin 3.3 Albumin/Globulin Ratio 1.06 Alkaline Phosphatase 161 H Anion Gap 18 H Aspartate Amino Transf (AST/SGOT) 23 Basophils # 0.1 Basophils % 0.7 Blood Morphology Comment Blood Urea Nitrogen 38 H Calcium Level 8.6 Carbon Dioxide Level 22 Chloride Level 108 Creatinine 3.68 H Direct Bilirubin 0.00 Eosinophils # 0.2 Eosinophils % 2.0 Globulin 3.10 Glucose Level 113 Hematocrit 31.0 L Hemoglobin 10.6 L INR International Normalized Ratio 1.05 Indirect Bilirubin 0.0 Lymphocytes # 2.8 Lymphocytes % 23.7 Mean Corpuscular Hemoglobin 30.1 Mean Corpuscular Hemoglobin Concent 34.3 Mean Corpuscular Volume 87.7 Mean Platelet Volume 8.6 Monocytes # 0.7 Monocytes % 6.1 Neutrophils # 8.1 H Neutrophils % 67.5 Nucleated Red Blood Cells # 0.0 Nucleated Red Blood Cells % 0.0 Platelet Count 244 Potassium Level 3.6 Prothrombin Time 13.7 Prothrombin Time Ratio 1.1 Red Blood Count 3.53 L Red Cell Distribution Width 15.3 H Sodium Level 144 Thyroid Stimulating Hormone (TSH) Pending Total Bilirubin 0.0 L Total Protein 6.4 White Blood Count 11.9 H Medications Medications Current Medications Ondansetron HCl (Zofran Inj) 4 mg Q6H PRN IV NAUSEA AND/OR VOMITING; Start at 18:00 Acetaminophen (Tylenol Tab) 650 mg Q6H PRN PO PAIN LEVEL 1-3 OR FEVER; Start 06/18/16 at 18:00 Acetaminophen/ Hydrocodone Bitart ([place] (5/325)) 1 tab Q6H PRN PO MODERATE PAIN LEVEL 4-6; Start 06/18/16 at 18:00 Morphine Sulfate (morphine) 2 mg Q4H PRN IV SEVERE PAIN LEVEL 7-10; Start at 18:00 Docusate Sodium (Colace) 200 mg Q12H PO Last administered on 06/26/16at 06:32; Admin Dose 200 MG; Start 06/18/16 at 18:00 Alprazolam (Xanax) 0.5 mg BID PRN PO ANXIETY; Start 06/18/16 at 18:00 Atorvastatin Calcium (Lipitor) 10 mg QHS PO Last administered on 06/25/16at 20: 17; Admin Dose 10 MG; Start 06/18/16 at 21:00 Bisacodyl (Dulcolax Supp) 10 mg Q24H PRN [place] CONSTIPATION; Start 06/18/16 at 18 :00 Clonazepam (Klonopin) 0.25 mg TID PRN PO ANXIETY; Start 06/18/16 at 18:00 Escitalopram Oxalate (Lexapro) 20 mg DAILY PO Last administered on 06/26/16at 08:54; Admin Dose 20 MG; Start 06/19/16 at 09:00 Gabapentin (Neurontin) 300 mg DAILY PO Last administered on 06/26/16at 08:54; Admin Dose 300 MG; Start 06/19/16 at 09:00 Mineral Oil (Fleet Mineral Oil Enema) 133 ml DAILY PRN [place] CONSTIPATION; Start 06/18/16 at 18:00 Polyethylene Glycol (Miralax) 17 gm DAILY PO Last administered on 06/26/16at 08 :54; Admin Dose 17 GM; Start 06/18/16 at 18:00 Multivit/Ca Carb/ B Cmplx/FA/Prenat ([place]) 1 tab DAILY PO Last administered on 06/26/16 08:54; Admin Dose 1 TAB; Start 06/19/16 at 15:00 Pantoprazole (Protonix Tab) 40 mg DAILY@06 PO Last administered on 06/26/16 06:33; Admin Dose 40 MG; Start 06/19/16 at 06:00 Clozapine (Clozaril) 400 mg QHS PO Last administered on 06/25/16 20:18; Admin Dose 400 MG; Start 06/18/16 at 21:00; Status Future hold Clozapine 225 mg 225 mg QAM PO Last administered on 06/25/16 09:16; Admin Dose 225 MG; Start 06/20/16 at 09:00 Dextrose (D5W) 1,000 ml @ 75 mls/hr [id number] IV Last administered on 06:34; Admin Dose 75 MLS/HR; Start 06/22/16 at 11:30 Enoxaparin Sodium (Lovenox) 30 mg DAILY SC Last administered on 06/25/16 11: 24; Admin Dose 30 MG; Start 06/25/16 at 10:30 Levofloxacin (Levaquin) 250 mg DAILY@06 PO Last administered on 06/26/16 06: 33; Admin Dose 250 MG; Start 06/26/16 at 06:00 Hydrochlorothiazide (Hydrochlorothiazide) 25 mg DAILY PO Last administered on 06/26/16 08:55; Admin Dose 25 MG; Start 06/25/16 at 12:00 Amiloride HCl ([place]) 5 mg DAILY PO Last administered on 06/26/16 08:55; Admin Dose 5 MG; Start 06/26/16 at 09:00 HOA AZAR MD Jun 26, 2016 10:45
[2016-06-26] MEDS: CLOZAPINE 100 MG TABLET PO SCH ×3 (10:48→21:36)
[2016-06-26] MEDS: ENOXAPARIN 30 MG/0.3 ML SYG SC SCH (10:50)
[2016-06-26 11:11] LABS: HAAIG REFLEX REFLEX FILED
[2016-06-26] MEDS: LACTOBACILLUS RHAMNOSUS CAP PO SCH ×2 (12:00→20:44)
--- NOTE | 2016-06-26 12:13 | PN ---
DATE: SUBJECTIVE: Patient stable, no acute events overnight. No fever, chills, nausea or vomiting. No sh ortness of breath. OBJECTIVE: VITAL SIGNS: Blood pressure 102/60, respirations 20, pulse 89, temperature 98.5. HEENT: Head is normocephalic. NECK: Supple. HEART: Regular rate. LUNGS: Show diminished breath sounds at the base. ABDOMEN: Soft, nontender to palpation. No rebound or guarding. EXTREMITIES: Negative for clubbing, cyanosis. No edema. DERMATOLOGIC: No rashes. MUSCULOSKELETAL: No joint effusions. NEUROLOGIC: No change in exam. MEDICATIONS: The patient's medications have been reviewed. LABORATORY DATA: Showed sodium 144, potassium 3.6, chloride 108, BUN 38, creatinine 3.68. White co unt 11.9, hemoglobin 10.6, hematocrit 31.0, platelet count 244. ASSESSMENT AND PLAN: 1. Nonoliguric acute kidney injury with underlying chronic kidney disease from previous lithium sean sure. Etiology of acute kidney injury is secondary to hemodynamics. Renal function has improved wi th IV hydration, creatinine appears to be stabilized around 3.6 mg/dL, which may be representing the patient's baseline. At this point, continue current treatment plan, supportive care, renally dose all meds, avoid nephrotoxins. 2. 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 The patient has been reintroduced on hydrochlorothiazide and amiloride for his nephrogenic . At this point, will continue to monit or, continue to encourage free water intake. Agree with discontinuing D5W. 3. Hypertension, improved. 4. Anemia of chronic disease. Continue to monitor hemoglobin and hematocrit levels. 5. Mineral bone disorder. Continue to monitor calcium and phosphorus levels. No need for phosphat e binders. 6. Sepsis secondary to urinary tract infection. Patient is improving, completing antibiotic course. 7. Schizophrenia, psychosis, continue to monitor. Continue medical management. 8. Status post syncope. Dictated By: RADHAMES YIP/IVONE Conf#: [id number] DID#: [id number]
[2016-06-26 15:21] LABS: THYROID STIMULATING HORMONE 1.57 MIU/L (0.465-4.680)
[2016-06-26 16:36] LABS: HEPATITIS B CORE ANTIBODY NEGATIVE (NEGATIVE)
[2016-06-26 20:00] VITALS: BP 100/64; PULSE 84; RESP 20
[2016-06-26] MEDS: ATORVASTATIN 10 MG TAB PO SCH (20:44)
[2016-06-27] MEDS: DOCUSATE SODIUM 100 MG CAP PO SCH ×2 (05:22→18:43)
[2016-06-27] MEDS: LEVOFLOXACIN 250 MG TAB PO SCH (05:22)
[2016-06-27] MEDS: LEVOTHYROXINE 100 MCG TAB PO SCH ×2 (06:03→08:29)
[2016-06-27 06:14] LABS: POTASSIUM 3.5 mmol/L (3.5-5.1)
[2016-06-27 06:16] LABS: CREATININE 3.8 mg/dl (0.61-1.24)
[2016-06-27 06:17] LABS: CALCIUM 8.7 mg/dl (8.4-10.2); PHOSPHORUS 4.6 mg/dl (2.5-4.9)
[2016-06-27 06:18] LABS: MAGNESIUM 2.6 mg/dl (1.7-2.5)
[2016-06-27 08:00] VITALS: BP 111/75; PULSE 89; RESP 18
[2016-06-27] MEDS: HYDROCHLOROTHIAZIDE 25 MG TAB PO SCH (08:27)
[2016-06-27] MEDS: ESCITALOPRAM 10 MG TAB PO SCH (08:28)
[2016-06-27] MEDS: MULTIVIT/CA CARB/B CMPLX/FA TAB PO SCH (08:28)
[2016-06-27] MEDS: AMILORIDE 5 MG TAB PO SCH (08:28)
[2016-06-27] MEDS: GABAPENTIN 300 MG CAP PO SCH (08:28)
[2016-06-27] MEDS: LACTOBACILLUS RHAMNOSUS CAP PO SCH ×2 (08:29→20:55)
[2016-06-27] MEDS: POLYETHYLENE GLYCOL 17 GM PACKET PO SCH ×2 (08:29→08:56)
[2016-06-27] MEDS: CLOZAPINE 100 MG TABLET PO SCH ×5 (08:30→21:04)
[2016-06-27] MEDS: ENOXAPARIN 30 MG/0.3 ML SYG SC SCH (08:30)
--- NOTE | 2016-06-27 09:59 | PDOCDIS ---
Discharge Instructions DIAGNOSIS Discharge Diagnosis: UTI CONDITION Patient Condition: Good HOME CARE INSTRUCTIONS: Special Diet: renal diet ACTIVITY: Activity Restrictions: Slowly Increase Activity Do not Drive FOLLOW UP/APPOINTMENTS Appointments Appt- Reservations And Ticketing Agent or Dr Olivas -2wks Appt Sveta Smith Urologist - 2wks PCP or SNF Doctor to follow. HOA AZAR MD Jun 27, 2016 09:59
[2016-06-27] MEDS ORDERED: LEVO250T35 PO (10:03)
[2016-06-27] MEDS ORDERED: LOV30I SC (10:03)
[2016-06-27] MEDS ORDERED: AMI5 PO (10:03)
[2016-06-27] MEDS ORDERED: LACT1CAP57 PO (10:03)
--- NOTE | 2016-06-27 12:11 | PN ---
DATE: 06/27/2016 SUBJECTIVE: The patient is stable, no acute events overnight. No fevers, chills, nausea, vomiting, no shortness of breath. OBJECTIVE: VITAL SIGNS: Blood pressure is 111/75, respirations 25, pulse 89, temperature 98.3. HEENT: Head is normocephalic. NECK: Supple. HEART: Regular rate. LUNGS: Show diminished breath sounds at the base. ABDOMEN: Soft, nontender to palpation, no rebound or guarding. EXTREMITIES: Negative for clubbing, cyanosis, no edema. DERMATOLOGIC: No rashes. MUSCULOSKELETAL: No joint effusions. NEUROLOGIC: No change in exam. MEDICATIONS: The patient's medications have been reviewed. LABORATORY DATA: Shows sodium 142, potassium 3.5, chloride 107, BUN 40, creatinine 3.80. ASSESSMENT AND PLAN: 1. Nonoliguric acute kidney injury on top of chronic kidney disease. The etiology of acute kidney injury was hemodynamics. Renal function appears to be stabilizing with a creatinine of 3.6 to 3.8 m g/dL. At this point, continue current treatment plan. Continue supportive care, renally dose all m edications, avoid nephrotoxins. 2. Diabetes insipidus secondary to the . The patient was reintroduced on hydrochlorothiazide and amiloride. Will continue to monitor if sodium levels improve. 3. Chronic kidney disease, likely stage IIIB/IV due to chronic lithium use. The patient is current ly in acute kidney injury as stated above. The patient will follow up with his primary fixing carpenter , in outpatient setting. 4. Sepsis secondary to urinary tract infection. The patient has completed antibiotic course. 5. Schizophrenia psychosis. Will continue to monitor. Continue medical management. 6. Status post syncope. Dictated By: RADHAMES YIP/NTS Conf#: [id number] DID#: [id number]
--- NOTE | 2016-06-27 13:41 | DS ---
DATE OF ADMISSION: 06/18/2016 DATE OF DISCHARGE: 06/27/2016 PRIMARY CARE PHYSICIAN: Unknown. KENO WRITER: Dr. Rivas. DIAGNOSIS ON ADMISSION: Severe sepsis. DIAGNOSES ON DISCHARGE: 1. Severe sepsis. 2. Acute cystitis. 3. Deconditioning. 4. Chronic schizophrenia. 5. Chronic hypothyroidism. 6. Probable chronic urinary retention. 7. Chronic kidney disease. HOSPITAL COURSE: A 56-year-old gentleman admitted from [facility] with signs and symptoms of se see sepsis. Urine grew out Morganella morganii, sensitive to Levaquin. Through supportive care, f luids, antibiotics the patient has improved. He is stable and fit for discharge. He will finish Le vaquin over the next 2 days. Patient's brother Dennis states that the patient had a chronic issue requiring straight catheteriza tion every 8 hours scheduled, some sort of issue with incomplete emptying. He sees a urologist, [place] [facility] in [place]. We will continue that care plan on discharge and at the [facility] nurse [facility]. In the long-term patient may benefit from a suprapubic catheter. We will defer to his usual u rologist. In terms of his schizophrenia, he is stable with supportive care, but due to issues with Librium the patient may need continuity with behavioral health as an outpatient. The patient appears to have diabetes insipidus, which is an ongoing and chronic issue. Free water i ntake could be very much beneficial in avoiding issues of hypovolemia and dehydration; however, he w ill need to have some sort of prompting due to his comorbidities. Chronic kidney disease, creatinine is probably at baseline. Potassium okay, did not require dialysi s. STOP MEDICATIONS: Milk of magnesium and Xanax. CONTINUED MEDICATIONS: 1. Tylenol every 4 hours as needed. 2. Lipitor 10. 3. Dulcolax as needed. 4. Clonazepam 0.25 mg 3 times daily p.r.n. anxiety. 5. Clozaril 225 mg every a.m., 300 mg lunch and 400 mg at bedtime. 6. Colace 100 twice daily and as needed. 7. Lexapro 20. 8. Multivitamin nephron FA tablet 1 tablet daily. 9. Neurontin 300 daily. 10. Hydrochlorothiazide 25 mg daily. 11. Synthroid 100 mcg daily. 12. Fleet enema as needed. 13. Omeprazole 20. 14. MiraLax 1 packet every other day. ALTERED MEDICATIONS: Amelioride 5 mg daily. NEW MEDICATIONS: 1. Lovenox 30 subcutaneous daily for 1 week. 2. Culturelle 1 capsule twice daily. 3. Levaquin 250 daily for 3 more days. LABORATORY DATA: Blood cultures negative. Urine showed Morganella morganii. Sodium 142, potassium 3.5, chloride 107, bicarbonate 24, BUN of 40, creatinine of 3.8, glucose of 10 0, calcium 8, magnesium of 2, phosphorus 4. LFTs okay. Alkaline phosphatase of 160. TSH 1.5. Uri ne osmolarity on the was 309. A1c of 4.9. Urine coma panel tox screen negative including alco hol, hepatitis workup, A, B and C negative for any acute process. Urine osmolarity was low at 223 a nd 213 during his hospital stay. INR 1. White cell count 11.9, hemoglobin and hematocrit of 10 and 31, MCV of 87, platelets of 244. Renal ultrasound did not show any acute process. There is mild l eft-sided hydronephrosis, small bilateral renal calculi, right mid renal cyst. Brother states the p atient having issues requiring stent placement and removal in the past, probably due to this hydron ephrosis. CAT scan of brain did not show any acute process. There is mild subacute to chronic micr ovascular disease versus mild volume loss. Chest x-ray: No acute process. Carotid ultrasound, no acute process. Dictated By: HOA BARTON/NTS Conf#: [id number] DID#: [id number] CC: CLAUDETTE MILLER MD; RADHAMES RIVAS DO;*EndCC*
[2016-06-27 20:00] VITALS: BP 118/73; PULSE 94; RESP 20
[2016-06-27] MEDS: ATORVASTATIN 10 MG TAB PO SCH (20:55)
[2016-06-28] MEDS: DOCUSATE SODIUM 100 MG CAP PO SCH ×2 (05:13→18:42)
[2016-06-28] MEDS: LEVOFLOXACIN 250 MG TAB PO SCH (05:13)
[2016-06-28 05:47] LABS: POTASSIUM 3.6 mmol/L (3.5-5.1)
[2016-06-28 05:50] LABS: CREATININE 3.74 mg/dl (0.61-1.24); PHOSPHORUS 4.6 mg/dl (2.5-4.9)
[2016-06-28 05:51] LABS: CALCIUM 9.1 mg/dl (8.4-10.2); MAGNESIUM 2.5 mg/dl (1.7-2.5)
[2016-06-28] MEDS: LEVOTHYROXINE 100 MCG TAB PO SCH ×2 (06:00→09:16)
[2016-06-28 08:00] VITALS: BP_SYST 101; BP_SYST 106; BP_DIAS 56; BP_DIAS 68; RESP 22
[2016-06-28] MEDS: POLYETHYLENE GLYCOL 17 GM PACKET PO SCH (09:13)
[2016-06-28] MEDS: AMILORIDE 5 MG TAB PO SCH (09:16)
[2016-06-28] MEDS: GABAPENTIN 300 MG CAP PO SCH (09:16)
[2016-06-28] MEDS: MULTIVIT/CA CARB/B CMPLX/FA TAB PO SCH (09:16)
[2016-06-28] MEDS: LACTOBACILLUS RHAMNOSUS CAP PO SCH ×2 (09:16→20:38)
[2016-06-28] MEDS: ESCITALOPRAM 10 MG TAB PO SCH (09:17)
[2016-06-28] MEDS: HYDROCHLOROTHIAZIDE 25 MG TAB PO SCH (09:17)
[2016-06-28] MEDS: ENOXAPARIN 30 MG/0.3 ML SYG SC SCH (09:17)
[2016-06-28] MEDS: CLOZAPINE 100 MG TABLET PO SCH ×2 (10:03→14:57)
--- NOTE | 2016-06-28 11:27 | PN ---
Date/Time of Note Date/Time of Note DATE: 06/28/16 TIME: 11:24 Assessment/Plan VTE Prophylaxis VTE Prophylaxis Intervention: LMWH Lines/Catheters IV [facility]ter [facility]from [facility] Urinary Cath still in place: No Assessment/Plan Chief Complaint/Hosp Course A/P 1) Severe Sepsis; Acute Cystitis related; stable, finishing levaquin for morganelli infection. 2) ARF/CKD; stable; cont outpt nephrology care 3) Hydronephrosis; mild/ probably asymptomatic. Ho temporary stenting ~ [facility] / urology? 4) DI. U osm appears low; will monitor off ivf. cont to push po fluids. 5) Chr Schizophrenia 6) Anemia 7) Ftt; SNF vs back to Assisted Living w cargiver. 8) Chr urinary retention; Urology ~ [facility] recommended straight cath Q8hrs. will try to obtain office note. will consult Dr Martin for assistance; +/- suprapubic catheter placement. Problems: Subjective 24 Hr Interval Summary Free Text/Dictation S- stable; no toxicity. Exam/Review of Systems Vital Signs Vitals Vital Signs Date Time Temp Pulse Resp B/P Pulse Ox O2 Delivery O2 Flow Rate FiO2 06/28/16 08:00 97.0 22 101/68 100 Room Air 06/27/16 20:00 94 Intake and Output 06/27/16 06/27/16 06/28/16 15:00 23:00 07:00 Intake Total 840 ml 950 ml Output Total 1220 ml 1800 ml Balance -380 ml -850 ml Exam Constitutional: alert Respiratory: clear to auscultation Cardiovascular: regular rate and rhythm Gastrointestinal: non-tender (nd; no r r g), soft Musculoskeletal: other (no edema) Results Result Diagram: 06/26/16 0458 06/28/16 0433 Results 24 hrs Laboratory Tests Test 06/28/16 04:33 Anion Gap 20 H Blood Urea Nitrogen 44 H Calcium Level 9.1 Carbon Dioxide Level 23 Chloride Level 104 Creatinine 3.74 H Glucose Level 118 Magnesium Level 2.5 Phosphorus Level 4.6 Potassium Level 3.6 Sodium Level 143 Medications Medications Current Medications Ondansetron HCl (Zofran Inj) 4 mg Q6H PRN IV NAUSEA AND/OR VOMITING; Start at 18:00 Acetaminophen (Tylenol Tab) 650 mg Q6H PRN PO PAIN LEVEL 1-3 OR FEVER; Start 06/18/16 at 18:00 Acetaminophen/ Hydrocodone Bitart ([place] (5/325)) 1 tab Q6H PRN PO MODERATE PAIN LEVEL 4-6; Start 06/18/16 at 18:00 Morphine Sulfate (morphine) 2 mg Q4H PRN IV SEVERE PAIN LEVEL 7-10; Start at 18:00 Docusate Sodium (Colace) 200 mg Q12H PO Last administered on 06/28/16at 05:13; Admin Dose 200 MG; Start 06/18/16 at 18:00 Alprazolam (Xanax) 0.5 mg BID PRN PO ANXIETY; Start 06/18/16 at 18:00 Atorvastatin Calcium (Lipitor) 10 mg QHS PO Last administered on 06/27/16at 20: 55; Admin Dose 10 MG; Start 06/18/16 at 21:00 Bisacodyl (Dulcolax Supp) 10 mg Q24H PRN LA CONSTIPATION; Start 06/18/16 at 18 :00 Clonazepam (Klonopin) 0.25 mg TID PRN PO ANXIETY; Start 06/18/16 at 18:00 Escitalopram Oxalate (Lexapro) 20 mg DAILY PO Last administered on 06/28/16at 09:17; Admin Dose 20 MG; Start 06/19/16 at 09:00 Gabapentin (Neurontin) 300 mg DAILY PO Last administered on 06/28/16at 09:16; Admin Dose 300 MG; Start 06/19/16 at 09:00 Mineral Oil (Fleet Mineral Oil Enema) 133 ml DAILY PRN LA CONSTIPATION; Start 06/18/16 at 18:00 Polyethylene Glycol (Miralax) 17 gm DAILY PO Last administered on 06/28/16at 09 :13; Admin Dose 17 GM; Start 06/18/16 at 18:00 Multivit/Ca Carb/ B Cmplx/FA/Prenat ([place]) 1 tab DAILY PO Last administered on 06/28/16at 09:16; Admin Dose 1 TAB; Start 06/19/16 at 15:00 Clozapine (Clozaril) 400 mg QHS PO Last administered on 06/27/16at 21:04; Admin Dose 400 MG; Start 06/18/16 at 21:00; Status Future hold Clozapine (Clozaril) 225 mg QAM PO Last administered on 06/28/16at 10:03; Admin Dose 225 MG; Start 06/20/16 at 09:00 Enoxaparin Sodium (Lovenox) 30 mg DAILY SC Last administered on 06/28/16 09: 17; Admin Dose 30 MG; Start 06/25/16 at 10:30 Levofloxacin (Levaquin) 250 mg DAILY@06 PO Last administered on 06/28/16 05: 13; Admin Dose 250 MG; Start 06/26/16 at 06:00 Hydrochlorothiazide (Hydrochlorothiazide) 25 mg DAILY PO Last administered on 06/28/16 09:17; Admin Dose 25 MG; Start 06/25/16 at 12:00 Amiloride HCl (Midamor) 5 mg DAILY PO Last administered on 06/28/16 09:16; Admin Dose 5 MG; Start 06/26/16 at 09:00 Lactobacillus Acidophilus/ Rhamnosus (Culturelle) 1 cap BID PO Last administered on 06/28/16 09:16; Admin Dose 1 CAP; Start 06/26/16 at 12:00 HOA AZAR MD Jun 28, 2016 11:27
--- NOTE | 2016-06-28 12:28 | PN ---
DATE: SUBJECTIVE: The patient is stable, no acute events overnight. No fevers, chills, nausea, vomiting. OBJECTIVE: VITAL SIGNS: Blood pressure 101/68, respirations 22, pulse 4, temperature 97.6. HEENT: Head is normocephalic. NECK: Supple. HEART: Regular rate. LUNGS: Show diminished breath sounds at the base. ABDOMEN: Soft, nontender to palpation. No rebound or guarding. EXTREMITIES: Negative for clubbing, cyanosis, edema. DERMATOLOGIC: No rashes. MUSCULOSKELETAL: No joint effusions. NEUROLOGIC: No change in exam. MEDICATIONS: Reviewed. LABORATORY DATA: Showed sodium 143, potassium 3.6, BUN 44, creatinine 3.74. White count 11.9, hemo globin 10.6, hematocrit 31.0, platelet count 244. ASSESSMENT AND PLAN: 1. Nonoliguric acute kidney injury on top of chronic kidney disease, etiology is secondary to hemod ynamics. The patient's renal function appears to have stabilized between creatinine 3.6 to 3.8 mg/d L. At this point, we will continue current treatment plan. Renally dose all medications, avoid nep hrotoxins. 2. Diabetes insipidus. The patient is currently stable. Continue hydrochlorothiazide, amiloride. Sodium levels have been stable. Continue to encourage free water intake. 3. Chronic kidney disease, likely stage IIIB/IV due to chronic lithium use. The patient currently in acute kidney injury as stated above but renal function has stabilized. The patient has been inst ructed to follow up with his primary personal computer network engineer in outpatient setting. 4. Sepsis secondary to urinary tract infection, improving. The patient is completing antibiotic co urse. 5. Schizophrenia/psychosis. Continue to monitor. 6. Status post syncope. Dictated By: RADHAMES RIVAS DO NR/NTS Conf#: [id number] DID#: [id number]
--- NOTE | 2016-06-28 17:16 | PSY ---
Date/Time of Note Date/Time of Note DATE: 06/28/16 TIME: 17:14 Psychiatric Subjective Eval Subjective Evaluation Patient location: inpatient Chief Complaint: near syncopal no trauma or fall per staff. no neuro def. high bs History of present illness D/W Dr Gu: pt has a hx of schizophrenia, needs clearance prior to discharge, pt is stable per report. Medical history Problems Medical Problems: (1) Acute cystitis Status: Acute (2) Acute urinary retention Status: Acute (3) Anemia Status: Acute (4) Syncope Status: Acute Allergies: Coded Allergies: No Known Allergy (Unverified , 06/18/16) Psychiatric Objective Eval Mental Status Examination: Cognition: Unable to assess due to (pt is asleeep; I was online for 5 minutes requesting assisstance and trying to wake the pt up to no avail) Laboratory Results Laboratory Tests Test 06/27/16 05:00 06/28/16 04:33 Anion Gap 15 20 Blood Urea Nitrogen 40mg/dl 44mg/dl Calcium Level 8.7mg/dl 9.1mg/dl Carbon Dioxide Level 24mmol/L 23mmol/L Chloride Level 107mmol/L 104mmol/L Creatinine 3.80mg/dl 3.74mg/dl Glucose Level 101mg/dl 118mg/dl Magnesium Level 2.6mg/dl 2.5mg/dl Phosphorus Level 4.6mg/dl 4.6mg/dl Potassium Level 3.5mmol/L 3.6mmol/L Sodium Level 142mmol/L 143mmol/L Assessment and Plan Recommendation/Plan Follow-up/Disposition Not able to assess the patient beause he is asleep. No one in the room - attempted to see pt x2. NADIA KEATING MD Jun 28, 2016 17:16
[2016-06-28] MEDS ORDERED: LORAZEPAM 0.5 MG TAB PO STA (18:21)
[2016-06-28] MEDS: ATORVASTATIN 10 MG TAB PO SCH (20:38)
[2016-06-28 22:00] VITALS: BP 101/66; RESP 17
--- NOTE | 2016-06-28 22:39 | PSY ---
Date/Time of Note Date/Time of Note DATE: 06/28/16 TIME: 22:30 Psychiatric Subjective Eval Consent Pt consented to telemedicine: Yes Subjective Evaluation Patient location: inpatient Chief Complaint: near syncopal no trauma or fall per staff. no neuro def. high bs Reason for consult: Psychiatric clearance History of present illness Unclear. Patient reportedly fell and was admitted for sepsis secondary to UTI. He has complicated medical issues and a diagnosis of schizophrenia. He currently takes Clozapine 75mg total dose. Patient was awake but in and out of the interview. Another psychiatrist attempted to interview him twice today but he was not able to wake up. For me, he was able to provide a smal amoutn of background information but would often nod in and out of the discussion. He has a history of taking clozapine x 8 years. He could not tell me why he takes it. He does state he gets his blood drawn but it is "every day." He is not sure who is prescribing the medication. He denies suicidal ideation and is able to wake to tell me he is not hallucinating. When asked about paranoia, he is less straightforward. Patient is not able to fully attend to the interview. Past psychiatric history See above Hospitalization: yes Family History Denies Medical history Problems Medical Problems: (1) Acute cystitis Status: Acute (2) Acute urinary retention Status: Acute (3) Anemia Status: Acute (4) Syncope Status: Acute Allergies: Coded Allergies: No Known Allergy (Unverified , 06/18/16) Substance Abuse Substance use: No known substance abuse Social History Level of education: Unknown DPA/Conservatorship: No Occupation/[facility]: Unknown Psychiatric Objective Eval Mental Status Examination: Appearance: Disheveled Eye Contact: Poor Psychomotor Activity: Slow Behavior: Cooperative Speech: Prolong Speech Latency AFFECT: Appropriate, Flat Mood: Appropriate/Full Though Process: Perseverative Thought Content: Delusions Suicidal: No Homicidal: No On 72 hour hold: No Orientation: x2 Cognition: Drowsy Insight: Impared Judgement: Impared Laboratory Results Laboratory Tests Test 06/27/16 05:00 06/28/16 04:33 Anion Gap 15 20 Blood Urea Nitrogen 40mg/dl 44mg/dl Calcium Level 8.7mg/dl 9.1mg/dl Carbon Dioxide Level 24mmol/L 23mmol/L Chloride Level 107mmol/L 104mmol/L Creatinine 3.80mg/dl 3.74mg/dl Glucose Level 101mg/dl 118mg/dl Magnesium Level 2.6mg/dl 2.5mg/dl Phosphorus Level 4.6mg/dl 4.6mg/dl Potassium Level 3.5mmol/L 3.6mmol/L Sodium Level 142mmol/L 143mmol/L Assessment and Plan Assessment/Diagnosis [place] I: Delirium, Schizophrenia on clozaril treatment [place] III: See medical issues Recommendation/Plan Medication Management Please note that clozapine doses need to be adjusted to FDA regulations. The medication can also cause agranulocytosis as well as other blood issues and requires close monitoring. Patient with sepsis may need ot be taken off the medication. I recommend consulting the hospital pharmacist. I also recommend contact the clozaril registry for direct advice on using this medication. Follow-up/Disposition At this point, patient does not present with a clear sensorium. Thus, I cannot clear him from a psychiatric standpoint for discharge. ABIGAIL CARR Jun 28, 2016 22:39
[2016-06-29] MEDS: LEVOFLOXACIN 250 MG TAB PO SCH (05:50)
[2016-06-29] MEDS: DOCUSATE SODIUM 100 MG CAP PO SCH ×2 (05:50→17:22)
[2016-06-29] MEDS: LORAZEPAM 0.5 MG TAB PO PRN (05:53)
[2016-06-29 06:01] LABS: BASOPHIL # 0.1 10^3/ul (0.0-0.1); BASOPHILS % 0.4 % (0.0-2.0); EOSINOPHILS # 0.4 10^3/ul (0.0-0.5); EOSINOPHILS % 2.7 % (0.0-7.0); HEMATOCRIT 34.3 % (42.0-52.0); HEMOGLOBIN 11.4 g/dl (14.0-18.0); LYMPHOCYTES # 3.2 10^3/ul (0.8-2.9); LYMPHOCYTES % 24.2 % (15.0-51.0); MEAN CORPUSCULAR HEMOGLOBIN 29.4 pg (29.0-33.0); MEAN CORPUSCULAR HGB CONC 33.3 g/dl (32.0-37.0); MEAN CORPUSCULAR VOLUME 88.2 fl (82.0-101.0); MONOCYTE # 0.7 10^3/ul (0.3-0.9); MONOCYTES % 5.2 % (0.0-11.0); NEUTROPHILS % 67.5 % (39.0-77.0); PLATELET COUNT 258 10^3/UL (140-440); RED BLOOD COUNT 3.89 10^6/ul (4.70-6.10); RED CELL DISTRIBUTION WIDTH 15.3 % (11.5-14.5); UNCORRECTED WBC 13.3 10^3/ul (4.8-10.8); WHITE BLOOD COUNT 13.3 10^3/ul (4.8-10.8)
[2016-06-29 06:17] LABS: POTASSIUM 3.2 mmol/L (3.5-5.1)
[2016-06-29 06:20] LABS: CONDITION 1; CREATININE 3.93 mg/dl (0.61-1.24); LH ANALYZER COMMENTS 1
[2016-06-29 06:21] LABS: CALCIUM 8.9 mg/dl (8.4-10.2); MAGNESIUM 2.7 mg/dl (1.7-2.5); PHOSPHORUS 4.7 mg/dl (2.5-4.9)
[2016-06-29 08:00] VITALS: BP 121/70; PULSE 82; RESP 20
[2016-06-29] MEDS: POLYETHYLENE GLYCOL 17 GM PACKET PO SCH (09:36)
[2016-06-29] MEDS: GABAPENTIN 300 MG CAP PO SCH (09:36)
[2016-06-29] MEDS: MULTIVIT/CA CARB/B CMPLX/FA TAB PO SCH (09:37)
[2016-06-29] MEDS: AMILORIDE 5 MG TAB PO SCH (09:37)
[2016-06-29] MEDS: ESCITALOPRAM 10 MG TAB PO SCH (09:37)
[2016-06-29] MEDS: HYDROCHLOROTHIAZIDE 25 MG TAB PO SCH (09:37)
[2016-06-29] MEDS: ENOXAPARIN 30 MG/0.3 ML SYG SC SCH (09:39)
[2016-06-29] MEDS: LACTOBACILLUS RHAMNOSUS CAP PO SCH ×2 (09:41→21:03)
[2016-06-29] MEDS ORDERED: POTASSIUM CHLORIDE (SR) 20 MEQ TAB PO STA (09:46)
--- NOTE | 2016-06-29 10:34 | PN ---
DATE: 06/29/2016 SUBJECTIVE: The patient is stable, no acute events overnight. No fevers, chills, nausea, vomiting. No shortness of breath. Please note yesterday I spoke with the patient's brother Dennis simon him of his brothers advancing kidney disease. According to his brother Dennis does not wish dial ysis given the fact that Mr. Car has had a significant clinical decline over the last several ye ars and would feel that dialysis would add to the patient's suffering. I informed him of the [facility] ent plan and he understood. All questions were answered. No other events noted. OBJECTIVE: VITAL SIGNS: Blood pressure 101/66, respirations 17, pulse 94, temperature 97.6. HEENT: Head is normocephalic. NECK: Supple. HEART: Regular rate. LUNGS: Show diminished breath sounds at the base. ABDOMEN: Soft, nontender to palpation. No rebound or guarding. EXTREMITIES: Negative for clubbing, cyanosis. No edema. DERMATOLOGIC: No rashes. MUSCULOSKELETAL: No joint effusions. NEUROLOGIC: No change in exam. MEDICATIONS: The patient's medications have been reviewed. LABORATORY DATA: Shows a sodium 141, potassium 2.2, chloride 99, BUN 43, creatinine 3.93. White co unt 13.3, hemoglobin 9.4, hematocrit 34.3, platelet count is 258. ASSESSMENT AND PLAN: 1. Nonoliguric acute kidney injury on top of chronic kidney, probably stage IV. Etiology of curren t acute kidney injury secondary to hemodynamics. Renal function appears to be fluctuating between a creatinine of 3.6, 3.9 mg/dL. This may be patient's underlying baseline. At this point, we will deescalate hydrochlorothiazide 12.5 mg daily. Continue amiloride, would otherwise continue supporti ve care, renally dose all medications, avoid nephrotoxins. 2. Diabetes insipidus. Patient is currently stable. Continue hydrochlorothiazide, amiloride doses were adjusted due to worsening renal function. Sodium levels have been stable. Continue current fr ee water intake. 4. Likely chronic kidney disease stage IIIB/IV likely due to chronic opiate use. Continue to treat acute kidney injury as stated above. Continue to monitor closely. 5. Mineral bone disorder. Monitor calcium and phosphorus levels. No need for phosphate binders. 6. Anemia. Continue to monitor hemoglobin and hematocrit levels. 7. Sepsis secondary to urinary improving. Continue antibiotic therapy. 8. Schizophrenia psychosis. Follow up with psychiatry. 9. Status post syncope. Dictated By: RADHAMES YIP/IVONE Conf#: [id number] DID#: [id number]
--- NOTE | 2016-06-29 11:17 | PSY ---
Date/Time of Note Date/Time of Note DATE: 06/29/16 TIME: 11:11 Psychiatric Subjective Eval Consent Pt consented to telemedicine: Yes Subjective Evaluation Patient location: inpatient Chief Complaint: near syncopal no trauma or fall per staff. no neuro def. high bs Reason for consult: Psychiatric clearance History of present illness Pt seen, chart reviewed. Pt is 56 yo male with chronic schizophrenia admitted due to a syncopal episode. Pt is calm and pleasant; he denies depressed mood, denies anxiety, denies insomnia. Denies si/hi, denies ah/vh, denies paranoia. He says, he has "illusions" which he explains as sometimes having difficulties to distinguishing what is real and whatt is not" But I am getting better at it" . Pt is on Clozaril, alprazolam. He reports no AE t current meds. INterestingly enough, he says, he does't have an outpt psychiatrist and does nto know who rx him clozaril. He is comphortable with returning back to his assisted living. Past psychiatric history last inpt was 8 years ago Hospitalization: yes Family History denies Medical history Problems Medical Problems: (1) Acute cystitis Status: Acute (2) Acute urinary retention Status: Acute (3) Anemia Status: Acute (4) Syncope Status: Acute Allergies: Coded Allergies: No Known Allergy (Unverified , 06/18/16) Substance Abuse Substance use: No known substance abuse Social History Marital status: single Level of education: college DPA/Conservatorship: No Occupation/Jail: disabled Psychiatric Objective Eval Physical Examination: Physical Examination: Not Applicable Sleep: Adequate Appetite: Adequate Energy: Adequate Interest: Adequate Mental Status Examination: Appearance: Groomed Eye Contact: Good Psychomotor Activity: Normal Behavior: Friendly Speech: Clear AFFECT: Appropriate Mood: Appropriate/Full Though Process: Linear Thought Content: Hallucinations Suicidal: No Homicidal: No Orientation: x4 Cognition: Alert Insight: Impared Judgement: Intact Laboratory Results Laboratory Tests Test 06/28/16 04:33 06/29/16 04:55 Anion Gap 20 19 Blood Urea Nitrogen 44mg/dl 43mg/dl Calcium Level 9.1mg/dl 8.9mg/dl Carbon Dioxide Level 23mmol/L 26mmol/L Chloride Level 104mmol/L 99mmol/L Creatinine 3.74mg/dl 3.93mg/dl Glucose Level 118mg/dl 106mg/dl Magnesium Level 2.5mg/dl 2.7mg/dl Phosphorus Level 4.6mg/dl 4.7mg/dl Potassium Level 3.6mmol/L 3.2mmol/L Sodium Level 143mmol/L 141mmol/L Basophils # 0.110^3/ul Basophils % 0.4% Blood Morphology Comment Eosinophils # 0.410^3/ul Eosinophils % 2.7% Hematocrit 34.3% Hemoglobin 11.4g/dl Lymphocytes # 3.210^3/ul Lymphocytes % 24.2% Mean Corpuscular Hemoglobin 29.4pg Mean Corpuscular Hemoglobin Concent 33.3g/dl Mean Corpuscular Volume 88.2fl Mean Platelet Volume 9.0fl Monocytes # 0.710^3/ul Monocytes % 5.2% Neutrophils # 9.010^3/ul Neutrophils % 67.5% Nucleated Red Blood Cells # 0.010^3/ul Nucleated Red Blood Cells % 0.0/100WBC Platelet Count 99353^3/UL Red Blood Count 3.8910^6/ul Red Cell Distribution Width 15.3% White Blood Count 13.310^3/ul Assessment and Plan Assessment/Diagnosis [place] I: SCHIZOPHRENIA, CHRONIC PARANOID [place] II: defered [place] III: as per record [place] IV: moderate [place] V: gaf 40 Recommendation/Plan Medication Management Agree with current meds regime. Psychotherapy defer to outpt Follow-up/Disposition community development planner - please arrange outpt psychiatric care. Pt does not present dts, dto, gd and can be treated on outpt basis. [id number] Recommendation: NADIA KEATING MD Jun 29, 2016 11:16
--- NOTE | 2016-06-29 11:23 | PN ---
Date/Time of Note Date/Time of Note DATE: 06/29/16 TIME: 11:15 Assessment/Plan VTE Prophylaxis VTE Prophylaxis Intervention: LMWH Lines/Catheters IV Catheter Type (from [facility] Saline Lock Urinary Cath still in place: No Assessment/Plan Chief Complaint/Hosp Course A/P 1) Severe Sepsis; Acute Cystitis (morganelli) related; stable, finishing levaquin. 2) ARF/CKD; stable; cont outpt nephrology care 3) Hydronephrosis; mild/ asymptomatic. Ho temporary stenting ~ [facility]/ urology ? 4) DI. U osm appears low; will monitor off ivf. cont to push po fluids. adjusted meds. 5) Chr Schizophrenia; will taper/ lower clozapine dose; Level is a send out. 6) Anemia 7) Ftt; SNF vs back to Assisted Living w [facility]. 8) Chr urinary retention; Urology ~ [place] recommended straight cath Q8hrs. will try to obtain office note. Dr Martin assistance appreciated; for condom catheter; +/- suprapubic prn 9) Tremors/ delirium; side effects of clozapine? Problems: Subjective 24 Hr Interval Summary Free Text/Dictation S- awake, alert, follows 1 step commands. Tele/Psy consult pending. Having delusions/ hallucinations? Yesterday, was noted to have tremors. No loc. However , more lethargic than before. Clozapine has been adjusted/ last dose held. This morning ~ less tremors. Exam/Review of Systems Vital Signs Vitals Vital Signs Date Time Temp Pulse Resp B/P Pulse Ox O2 Delivery O2 Flow Rate FiO2 06/29/16 08:00 97.4 82 20 121/70 100 Room Air Intake and Output 06/28/16 06/28/16 06/29/16 14:59 22:59 06:59 Intake Total 1040 ml 800 ml Output Total 1450 ml 1450 ml Balance -410 ml -650 ml Exam Constitutional: alert Head: other (face has somewhat been flushed this week; better today than saturday.) Respiratory: clear to auscultation Cardiovascular: regular rate and rhythm Gastrointestinal: non-tender (nd; no r r g), soft Extremities: other (no edema) Results Result Diagram: 06/29/16 0455 06/29/16 0455 Results 24 hrs Laboratory Tests Test 06/29/16 04:55 Anion Gap 19 H Basophils # 0.1 Basophils % 0.4 Blood Morphology Comment Blood Urea Nitrogen 43 H Calcium Level 8.9 Carbon Dioxide Level 26 Chloride Level 99 Creatinine 3.93 H Eosinophils # 0.4 Eosinophils % 2.7 Glucose Level 106 Hematocrit 34.3 L Hemoglobin 11.4 L Lymphocytes # 3.2 H Lymphocytes % 24.2 Magnesium Level 2.7 H Mean Corpuscular Hemoglobin 29.4 Mean Corpuscular Hemoglobin Concent 33.3 Mean Corpuscular Volume 88.2 Mean Platelet Volume 9.0 Monocytes # 0.7 Monocytes % 5.2 Neutrophils # 9.0 H Neutrophils % 67.5 Nucleated Red Blood Cells # 0.0 Nucleated Red Blood Cells % 0.0 Phosphorus Level 4.7 Platelet Count 258 Potassium Level 3.2 L Red Blood Count 3.89 L Red Cell Distribution Width 15.3 H Sodium Level 141 White Blood Count 13.3 H Medications Medications Current Medications Ondansetron HCl (Zofran Inj) 4 mg Q6H PRN IV NAUSEA AND/OR VOMITING; Start at 18:00 Acetaminophen (Tylenol Tab) 650 mg Q6H PRN PO PAIN LEVEL 1-3 OR FEVER; Start 06/18/16 at 18:00 Acetaminophen/ Hydrocodone Bitart ([place] (5/325)) 1 tab Q6H PRN PO MODERATE PAIN LEVEL 4-6; Start 06/18/16 at 18:00 Morphine Sulfate (morphine) 2 mg Q4H PRN IV SEVERE PAIN LEVEL 7-10; Start at 18:00 Docusate Sodium (Colace) 200 mg Q12H PO Last administered on 06/29/16at 05:50; Admin Dose 200 MG; Start 06/18/16 at 18:00 Alprazolam (Xanax) 0.5 mg BID PRN PO ANXIETY; Start 06/18/16 at 18:00 Atorvastatin Calcium (Lipitor) 10 mg QHS PO Last administered on 06/28/16at 20: 38; Admin Dose 10 MG; Start 06/18/16 at 21:00 Bisacodyl (Dulcolax Supp) 10 mg Q24H PRN [place] CONSTIPATION; Start 06/18/16 at 18 :00 Clonazepam (Klonopin) 0.25 mg TID PRN PO ANXIETY; Start 06/18/16 at 18:00 Escitalopram Oxalate (Lexapro) 20 mg DAILY PO Last administered on 06/29/16 09:37; Admin Dose 20 MG; Start 06/19/16 at 09:00 Gabapentin (Neurontin) 300 mg DAILY PO Last administered on 06/29/16 09:36; Admin Dose 300 MG; Start 06/19/16 at 09:00 Mineral Oil (Fleet Mineral Oil Enema) 133 ml DAILY PRN [place] CONSTIPATION; Start 06/18/16 at 18:00 Polyethylene Glycol (Miralax) 17 gm DAILY PO Last administered on 06/29/16 09 :36; Admin Dose 17 GM; Start 06/18/16 at 18:00 Multivit/Ca Carb/ B Cmplx/FA/Prenat ([place]) 1 tab DAILY PO Last administered on 06/29/16 09:37; Admin Dose 1 TAB; Start 06/19/16 at 15:00 Clozapine (Clozaril) 400 mg QHS PO Last administered on 06/27/16 21:04; Admin Dose 400 MG; Start 06/18/16 at 21:00; Status Future hold Clozapine (Clozaril) 225 mg QAM PO Last administered on 06/28/16 10:03; Admin Dose 225 MG; Start 06/20/16 at 09:00; Status Future hold Enoxaparin Sodium (Lovenox) 30 mg DAILY SC Last administered on 06/29/16 09: 39; Admin Dose 30 MG; Start 06/25/16 at 10:30 Levofloxacin (Levaquin) 250 mg DAILY@06 PO Last administered on 06/29/16 05: 50; Admin Dose 250 MG; Start 06/26/16 at 06:00 Amiloride HCl (Midamor) 5 mg DAILY PO Last administered on 06/29/16 09:37; Admin Dose 5 MG; Start 06/26/16 at 09:00 Lactobacillus Acidophilus/ Rhamnosus (Culturelle) 1 cap BID PO Last administered on 06/29/16 09:41; Admin Dose 1 CAP; Start 06/26/16 at 12:00 Lorazepam (Ativan) 0.5 mg Q8H PRN PO ANXIETY Last administered on 06/29/16 05 :53; Admin Dose 0.5 MG; Start 06/28/16 at 19:30 Hydrochlorothiazide (Hydrochlorothiazide) 12.5 mg DAILY@06 PO ; Start 06/30/16 at 06:00 HOA AZAR MD Jun 29, 2016 11:23
[2016-06-29] MEDS ORDERED: CLOZAPINE 100 MG TABLET PO SCH ×2 (13:00→21:00)
[2016-06-29 20:00] VITALS: BP 102/58; PULSE 88; RESP 18
[2016-06-29] MEDS: ATORVASTATIN 10 MG TAB PO SCH (21:03)
[2016-06-30] MEDS: LEVOTHYROXINE 100 MCG TAB PO SCH (05:30)
[2016-06-30] MEDS: DOCUSATE SODIUM 100 MG CAP PO SCH ×2 (05:31→18:00)
[2016-06-30] MEDS: LEVOFLOXACIN 250 MG TAB PO SCH (05:31)
[2016-06-30] MEDS: HYDROCHLOROTHIAZIDE 12.5 MG CAP PO SCH (05:31)
[2016-06-30 08:00] VITALS: BP 96/64; PULSE 83; RESP 17
[2016-06-30 08:40] LABS: BASOPHIL # 0.3 10^3/ul (0.0-0.1); BASOPHILS % 2.3 % (0.0-2.0); EOSINOPHILS # 0.3 10^3/ul (0.0-0.5); EOSINOPHILS % 2.3 % (0.0-7.0); HEMATOCRIT 36.3 % (42.0-52.0); HEMOGLOBIN 11.9 g/dl (14.0-18.0); LYMPHOCYTES # 3.5 10^3/ul (0.8-2.9); LYMPHOCYTES % 23.3 % (15.0-51.0); MEAN CORPUSCULAR HEMOGLOBIN 28.9 pg (29.0-33.0); MEAN CORPUSCULAR HGB CONC 32.7 g/dl (32.0-37.0); MEAN CORPUSCULAR VOLUME 88.5 fl (82.0-101.0); MEAN PLATELET VOLUME 9.6 fl (7.4-10.4); MONOCYTE # 0.8 10^3/ul (0.3-0.9); MONOCYTES % 5.3 % (0.0-11.0); NEUTROPHIL # 9.9 10^3/ul (1.6-7.5); NEUTROPHILS % 66.8 % (39.0-77.0); PLATELET COUNT 262 10^3/UL (140-440); RED CELL DISTRIBUTION WIDTH 15.7 % (11.5-14.5); UNCORRECTED WBC 14.8 10^3/ul (4.8-10.8); WHITE BLOOD COUNT 14.8 10^3/ul (4.8-10.8)
[2016-06-30 08:48] LABS: CONDITION 1; LH ANALYZER COMMENTS 1; SUSPECT 1
[2016-06-30 08:57] LABS: POTASSIUM 3.9 mmol/L (3.5-5.1)
[2016-06-30 09:00] LABS: CREATININE 3.98 mg/dl (0.61-1.24); PHOSPHORUS 4.9 mg/dl (2.5-4.9)
[2016-06-30] MEDS: AMILORIDE 5 MG TAB PO SCH (09:00)
[2016-06-30 09:01] LABS: MAGNESIUM 2.8 mg/dl (1.7-2.5)
[2016-06-30] MEDS: LACTOBACILLUS RHAMNOSUS CAP PO SCH ×2 (09:10→21:50)
[2016-06-30] MEDS: ESCITALOPRAM 10 MG TAB PO SCH (09:10)
[2016-06-30] MEDS: CLOZAPINE 100 MG TABLET PO SCH ×3 (09:11→21:50)
[2016-06-30] MEDS: GABAPENTIN 300 MG CAP PO SCH (09:13)
[2016-06-30] MEDS: MULTIVIT/CA CARB/B CMPLX/FA TAB PO SCH (09:14)
[2016-06-30] MEDS: POLYETHYLENE GLYCOL 17 GM PACKET PO SCH (09:14)
[2016-06-30] MEDS: ENOXAPARIN 30 MG/0.3 ML SYG SC SCH (09:20)
--- NOTE | 2016-06-30 11:43 | PN ---
Date/Time of Note Date/Time of Note DATE: 06/30/16 TIME: 11:40 Assessment/Plan VTE Prophylaxis VTE Prophylaxis Intervention: LMWH Lines/Catheters [facility] Saline Lock Urinary Cath still in place: No Assessment/Plan Chief Complaint/Hosp Course A/P 1) Severe Sepsis; Acute Cystitis (morganelli) related; stable, finishing levaquin. 2) ARF/CKD; stable; cont outpt nephrology care 3) Hydronephrosis; mild/ asymptomatic. Ho temporary stenting ~ [facility]/ urology ? 4) DI. U osm appears low; off ivf. cont to push po fluids. adjusted meds. 5) Chr Schizophrenia; will taper/ lower clozapine dose; Level is a send out. 6) Anemia 7) Ftt; SNF? vs back to Assisted Living w [facility]/ condom catheter. 8) Chr urinary retention; Urology ~ [facility] recommended straight cath Q8hrs. +/- suprapubic prn. will try to obtain office note. Dr Martin assistance appreciated; recommended to use condom catheter; 9) Tremors/ delirium; side effects of clozapine? 10) Facial erythema? Problems: Subjective 24 Hr Interval Summary Free Text/Dictation S- no events. no distress. some apathy? at the request of [facility], will lower Clozapine dose. Exam/Review of Systems Vital Signs Vitals Vital Signs Date Time Temp Pulse Resp B/P Pulse Ox O2 Delivery O2 Flow Rate FiO2 06/29/16 20:00 97.9 88 18 102/58 100 Room Air Intake and Output 06/29/16 06/29/16 06/30/16 15:00 23:00 07:00 Intake Total 1440 ml 500 ml Output Total 700 ml 750 ml Balance 740 ml -250 ml Exam Constitutional: alert, oriented Head: other (some facial erythema remains.) Respiratory: clear to auscultation Cardiovascular: regular rate and rhythm Gastrointestinal: non-tender (nd; no r r g), soft Extremities: other (no edema) Results Result Diagram: 06/30/16 0814 06/30/16 0814 Results 24 hrs Laboratory Tests Test 06/30/16 08:14 Anion Gap 22 H Basophils # 0.3 H Basophils % 2.3 H Blood Morphology Comment Blood Urea Nitrogen 50 H Calcium Level 9.0 Carbon Dioxide Level 24 Chloride Level 97 Creatinine 3.98 H Eosinophils # 0.3 Eosinophils % 2.3 Glucose Level 113 Hematocrit 36.3 L Hemoglobin 11.9 L Lymphocytes # 3.5 H Lymphocytes % 23.3 Magnesium Level 2.8 H Mean Corpuscular Hemoglobin 28.9 L Mean Corpuscular Hemoglobin Concent 32.7 Mean Corpuscular Volume 88.5 Mean Platelet Volume 9.6 Monocytes # 0.8 Monocytes % 5.3 Neutrophils # 9.9 H Neutrophils % 66.8 Nucleated Red Blood Cells # 0.0 Nucleated Red Blood Cells % 0.0 Phosphorus Level 4.9 Platelet Count 262 Potassium Level 3.9 Red Blood Count 4.10 L Red Cell Distribution Width 15.7 H Sodium Level 139 White Blood Count 14.8 H Medications Medications Current Medications Ondansetron HCl (Zofran Inj) 4 mg Q6H PRN IV NAUSEA AND/OR VOMITING; Start at 18:00 Acetaminophen (Tylenol Tab) 650 mg Q6H PRN PO PAIN LEVEL 1-3 OR FEVER; Start 06/18/16 at 18:00 Acetaminophen/ Hydrocodone Bitart ([place] (5/325)) 1 tab Q6H PRN PO MODERATE PAIN LEVEL 4-6; Start 06/18/16 at 18:00 Morphine Sulfate (morphine) 2 mg Q4H PRN IV SEVERE PAIN LEVEL 7-10; Start at 18:00 Docusate Sodium (Colace) 200 mg Q12H PO Last administered on 06/30/16at 05:31; Admin Dose 200 MG; Start 06/18/16 at 18:00 Alprazolam (Xanax) 0.5 mg BID PRN PO ANXIETY; Start 06/18/16 at 18:00 Atorvastatin Calcium (Lipitor) 10 mg QHS PO Last administered on 06/29/16at 21: 03; Admin Dose 10 MG; Start 06/18/16 at 21:00 Bisacodyl (Dulcolax Supp) 10 mg Q24H PRN [place] CONSTIPATION; Start 06/18/16 at 18 :00 Escitalopram Oxalate (Lexapro) 20 mg DAILY PO Last administered on 06/30/16at 09:10; Admin Dose 20 MG; Start 06/19/16 at 09:00 Gabapentin (Neurontin) 300 mg DAILY PO Last administered on 06/30/16at 09:13; Admin Dose 300 MG; Start 06/19/16 at 09:00 Mineral Oil (Fleet Mineral Oil Enema) 133 ml DAILY PRN [place] CONSTIPATION; Start 06/18/16 at 18:00 Polyethylene Glycol (Miralax) 17 gm DAILY PO Last administered on 06/30/16 09 :14; Admin Dose 17 GM; Start 06/18/16 at 18:00 Multivit/Ca Carb/ B Cmplx/FA/Prenat ([place]) 1 tab DAILY PO Last administered on 06/30/16at 09:14; Admin Dose 1 TAB; Start 06/19/16 at 15:00 Clozapine (Clozaril) 225 mg QAM PO Last administered on 06/30/16 09:11; Admin Dose 225 MG; Start 06/20/16 at 09:00; Status Future hold Enoxaparin Sodium (Lovenox) 30 mg DAILY SC Last administered on 06/30/16 09: 20; Admin Dose 30 MG; Start 06/25/16 at 10:30 Levofloxacin (Levaquin) 250 mg DAILY@06 PO Last administered on 06/30/16 05: 31; Admin Dose 250 MG; Start 06/26/16 at 06:00 Amiloride HCl (Midamor) 5 mg DAILY PO Last administered on 06/29/16 09:37; Admin Dose 5 MG; Start 06/26/16 at 09:00 Lactobacillus Acidophilus/ Rhamnosus (Culturelle) 1 cap BID PO Last administered on 06/30/16 09:10; Admin Dose 1 CAP; Start 06/26/16 at 12:00 Lorazepam (Ativan) 0.5 mg Q8H PRN PO ANXIETY Last administered on 06/29/16 05 :53; Admin Dose 0.5 MG; Start 06/28/16 at 19:30 Hydrochlorothiazide (Hydrochlorothiazide) 12.5 mg DAILY@06 PO Last administered on 06/30/16 05:31; Admin Dose 12.5 MG; Start 06/30/16 at 06:00 Clozapine (Clozaril) 300 mg QHS PO Last administered on 06/29/16 21:03; Admin Dose 300 MG; Start 06/29/16 at 21:00 HOA AZAR MD Jun 30, 2016 11:43
[2016-06-30] MEDS ORDERED: CLOZAPINE 25 MG TAB PO SCH (13:00)
--- NOTE | 2016-06-30 14:52 | PSY ---
Date/Time of Note Date/Time of Note DATE: 06/30/16 TIME: 14:47 Psychiatric Subjective Eval Consent Pt consented to telemedicine: Yes Subjective Evaluation Patient location: inpatient Chief Complaint: near syncopal no trauma or fall per staff. no neuro def. high bs Reason for consult: Psychiatric clearance History of present illness Patient is about to be transferred to SNF for continue medical care following sepsis. Consult request to make sure he is psychiatrically stable for transport. Patient states he is doing much better. He reports his mood is "fine." He denies si. He denies hallucinations and delusions. He reports he feels safe in the hospital and is okay with going to a SNF. Today, he is able to tell me the name of his psychiatrist, Dr. Egan. Past psychiatric history Schizophrenia Hospitalization: yes Medical history Problems Medical Problems: (1) Acute cystitis Status: Acute (2) Acute urinary retention Status: Acute (3) Anemia Status: Acute (4) Syncope Status: Acute Allergies: Coded Allergies: No Known Allergy (Unverified , 06/18/16) Substance Abuse Substance use: No known substance abuse Social History Marital status: single Level of education: college DPA/Conservatorship: No Occupation/Longterm: disabled Psychiatric Objective Eval Mental Status Examination: Appearance: Groomed Eye Contact: Good Psychomotor Activity: Slow Behavior: Friendly, Cooperative Speech: Clear, Soft AFFECT: Other (Superficial, inappropriate smle) Mood: Appropriate/Full Though Process: Linear Thought Content: Normal Suicidal: No Homicidal: No On 72 hour hold: No Cognition: Alert Insight: Intact Judgement: Intact Laboratory Results Laboratory Tests Test 06/29/16 04:55 06/30/16 08:14 Anion Gap 19 22 Basophils # 0.110^3/ul 0.310^3/ul Basophils % 0.4% 2.3% Blood Morphology Comment Blood Urea Nitrogen 43mg/dl 50mg/dl Calcium Level 8.9mg/dl 9.0mg/dl Carbon Dioxide Level 26mmol/L 24mmol/L Chloride Level 99mmol/L 97mmol/L Creatinine 3.93mg/dl 3.98mg/dl Eosinophils # 0.410^3/ul 0.310^3/ul Eosinophils % 2.7% 2.3% Glucose Level 106mg/dl 113mg/dl Hematocrit 34.3% 36.3% Hemoglobin 11.4g/dl 11.9g/dl Lymphocytes # 3.210^3/ul 3.510^3/ul Lymphocytes % 24.2% 23.3% Magnesium Level 2.7mg/dl 2.8mg/dl Mean Corpuscular Hemoglobin 29.4pg 28.9pg Mean Corpuscular Hemoglobin Concent 33.3g/dl 32.7g/dl Mean Corpuscular Volume 88.2fl 88.5fl Mean Platelet Volume 9.0fl 9.6fl Monocytes # 0.710^3/ul 0.810^3/ul Monocytes % 5.2% 5.3% Neutrophils # 9.010^3/ul 9.910^3/ul Neutrophils % 67.5% 66.8% Nucleated Red Blood Cells # 0.010^3/ul 0.010^3/ul Nucleated Red Blood Cells % 0.0/100WBC 0.0/100WBC Phosphorus Level 4.7mg/dl 4.9mg/dl Platelet Count 13490^3/UL 43364^3/UL Potassium Level 3.2mmol/L 3.9mmol/L Red Blood Count 3.8910^6/ul 4.1010^6/ul Red Cell Distribution Width 15.3% 15.7% Sodium Level 141mmol/L 139mmol/L White Blood Count 13.310^3/ul 14.810^3/ul Assessment and Plan Assessment/Diagnosis [place] I: Schizophrenia [place] III: Sepsis, UTI Recommendation/Plan Medication Management Would not change clozaril dose. When he is transferred to SNF, please ensure transfer instruction for this medication. Increasing and decreasing the dose needs to follow standard dosing protocols. Psychotherapy N.A Pt. Caregiver/Family Education N.A Follow-up/Disposition From a psychiatric standpoint, patient appears stable. He has a chronic schizophrenic illness and is clozaril treatment. Clozaril is reserved for those patients who could not tolerate or did not respond to other treatments. This suggests his illness is chronic and severer in nature. Would not adjust. However, he does not appear to be a danger to himself or others and is willing to go to the SNF. ABIGAIL CARR Jun 30, 2016 14:52
--- NOTE | 2016-06-30 18:18 | CONS ---
DATE OF ADMISSION: 06/18/2016 DATE OF CONSULTATION: 06/30/2016 TYPE OF CONSULTATION: Infectious Disease. REASON FOR CONSULTATION: Antibiotic management. HISTORY OF PRESENT ILLNESS: Mauro Car is a 56-year-old male who comes in with syncope and is being seen for antibiotic management. His past problems include hypertension, schizophrenia, dyslip idemia and hypothyroidism. The patient presented with a syncopal episode. He also had a burning se nsation when he urinates and is not sure how long that has been going. He had no other complaints a t the time. On admission, his white count was 25.1; H of 12.7; platelet count 263,000. His urine g rew out Morganella morganii, which was sensitive to cefotaxime and to Levaquin. A chest x-ray was u nremarkable. Carotid Doppler, no evidence of hemodynamically significant stenosis or occlusion. CT scan of the brain showed no acute intracranial hemorrhage, and a renal ultrasound showed mild left- sided hydronephrosis, small bilateral renal calculi and right mid-renal cyst. He is admitted with S IRS, with a white count to 25.1. He also had hypotension and probable syncope secondary to urinary tract infection. His UA on admission was positive for urinary nitrite, trace leukocyte esterase, an d as noted, he grew out Morganella morganii. Urine repeated on the was negative. The patient was seen by Dr. Gu on the . The patient had severe sepsis with acute cystitis - finish ing Levaquin, hydronephrosis, chronic urinary retention. Being seen by Dr. Jose Martin. PAST MEDICAL HISTORY: Operations, as outlined. FAMILY HISTORY: Noncontributory. SOCIAL HISTORY: He does not smoke, drink or abuse drugs. ALLERGIES: NONE TO PENICILLIN, SULFA OR FOODS. MEDICATIONS: Per chart. REVIEW OF SYSTEMS: As per HPI. PHYSICAL EXAMINATION GENERAL: The patient is a well-developed, well-nourished male who is alert, responsive, in no acute distress. VITAL SIGNS: Stable. He is afebrile. SKIN: Without generalized rash. He has acute facial dark hyperpigmentation, doubt rash. HEENT: Within normal limits. NECK: Supple. LYMPHATIC: Lymph nodes, none palpable. CHEST: Decreased breath sounds at the bases. HEART: Without murmur or gallop. ABDOMEN: Soft, nontender, without organosplenomegaly or masses. EXTREMITIES: Without cyanosis, clubbing, or edema. RECTAL: Deferred. GENITAL: Deferred. NEUROLOGIC: No focal neurological abnormality. IMPRESSION AND PLAN: The patient presented with nonoliguric acute renal injury on top of chronic re nal disease, with a urinary tract infection. Has diabetes insipidus, was placed on hydrochlorothiaz ashley and amiloride. Chronic renal disease is likely due to chronic lithium use. He is stage IIIB to IV. At this point, he had appropriate therapy with antibiotics. We are going to discontinue is [place]. I will dictate my findings to Dr. Olivas, Dr. Kirkland, hospitalists, Dr. Gu. Dictated By: ONEIL BRAY MD, JD/IVONE Conf#: [id number] DID#: [id number]
--- NOTE | 2016-06-30 18:38 | PN ---
DATE: 06/30/2016 SUBJECTIVE: The patient is stable. No acute events overnight. No fevers, chills, nausea, vomiting , no shortness of breath. OBJECTIVE VITAL SIGNS: Blood pressure is 96/64, respirations 17, pulse 83, temperature 97.5. HEENT: Head is normocephalic. NECK: Supple. HEART: Regular rate. LUNGS: Diminished breath sounds at base. ABDOMEN: Soft, nontender to palpation. No rebound, guarding. EXTREMITIES: Negative for clubbing, cyanosis. No edema. DERMATOLOGIC: No rashes. MUSCULOSKELETAL: No joint effusion. NEUROLOGIC: No change in exam. MEDICATIONS: The patient's medications have been reviewed. LABORATORY DATA: Sodium 139, potassium 3.9, chloride 97, BUN 50, creatinine 3.98. White count 14.8 , hemoglobin 9.9, hematocrit 36.3, platelet count is 262. ASSESSMENT AND PLAN 1. Nonoliguric acute kidney injury on top of chronic kidney disease stage IV. Etiology of acute ki dney injury is secondary to hemodynamics. Renal function initially improved; however, the last 2 to 3 days the renal function has declined; this is likely due to reintroduction of diuretic therapy. The patient is creatinine is at 3.98 mg/dL. At this point, the patient's diuretic therapy was reduc ed. We will continue to monitor renal function and renal panel closely. If further decline, we zunilda l discontinue amelioride. Please note, I did speak with the patient's family and brother, informing them of his advanced chronic kidney disease. Per patient's family, they do not wish to have any fo rm of dialysis if renal function should worsen. 2. Diabetes insipidus, improved. Continue hydrochlorothiazide, amiloride. 3. History of chronic kidney disease stage IIIB/IV likely secondary to chronic lithium use. The pa harper is in acute kidney injury, as stated above. Continue to monitor. 4. Mineral bone disorder. Continue to monitor calcium and phosphorus levels. 5. Anemia. Continue to monitor hemoglobin and hematocrit levels. 6. Sepsis, secondary to urinary tract infection. The patient has completed antibiotic course. 7. Schizophrenia, psychosis. Continue to monitor. Follow up with psychiatry. Dictated By: RADHAMES RIVAS DO NR/NTS Conf#: [id number] DID#: [id number]
[2016-06-30 20:00] VITALS: BP 95/60; PULSE 85; RESP 21
[2016-06-30] MEDS: ATORVASTATIN 10 MG TAB PO SCH (21:50)
[2016-06-30] MEDS: LORAZEPAM 0.5 MG TAB PO PRN (21:50)
[2016-07-01 05:15] LABS: BASOPHIL # 0.1 10^3/ul (0.0-0.1); BASOPHILS % 0.7 % (0.0-2.0); EOSINOPHILS # 0.5 10^3/ul (0.0-0.5); EOSINOPHILS % 3.7 % (0.0-7.0); HEMATOCRIT 32.8 % (42.0-52.0); HEMOGLOBIN 10.9 g/dl (14.0-18.0); LYMPHOCYTES # 3.1 10^3/ul (0.8-2.9); LYMPHOCYTES % 25.4 % (15.0-51.0); MEAN CORPUSCULAR HEMOGLOBIN 29.5 pg (29.0-33.0); MEAN CORPUSCULAR HGB CONC 33.4 g/dl (32.0-37.0); MEAN CORPUSCULAR VOLUME 88.4 fl (82.0-101.0); MEAN PLATELET VOLUME 8.6 fl (7.4-10.4); MONOCYTE # 0.9 10^3/ul (0.3-0.9); MONOCYTES % 7.1 % (0.0-11.0); NEUTROPHIL # 7.7 10^3/ul (1.6-7.5); NEUTROPHILS % 63.1 % (39.0-77.0); PLATELET COUNT 256 10^3/UL (140-440); RED BLOOD COUNT 3.71 10^6/ul (4.70-6.10); UNCORRECTED WBC 12.3 10^3/ul (4.8-10.8); WHITE BLOOD COUNT 12.3 10^3/ul (4.8-10.8)
[2016-07-01 05:36] LABS: ALBUMIN 3.5 g/dl (3.3-4.9)
[2016-07-01 05:37] LABS: POTASSIUM 3.5 mmol/L (3.5-5.1)
[2016-07-01 05:39] LABS: ALBUMIN/GLOBULIN RATIO 1.16; CREATININE 3.93 mg/dl (0.61-1.24); TOTAL PROTEIN 6.5 g/dl (6.1-8.1)
[2016-07-01 05:40] LABS: CALCIUM 8.5 mg/dl (8.4-10.2)
[2016-07-01] MEDS: HYDROCHLOROTHIAZIDE 12.5 MG CAP PO SCH (06:00)
[2016-07-01] MEDS: DOCUSATE SODIUM 100 MG CAP PO SCH ×2 (06:13→17:02)
[2016-07-01] MEDS: LEVOTHYROXINE 100 MCG TAB PO SCH (06:14)
[2016-07-01 06:38] LABS: CONDITION 1; LH ANALYZER COMMENTS 1
[2016-07-01 08:05] VITALS: BP 100/63; RESP 18
[2016-07-01] MEDS: AMILORIDE 5 MG TAB PO SCH (09:00)
[2016-07-01] MEDS: MULTIVIT/CA CARB/B CMPLX/FA TAB PO SCH (10:11)
[2016-07-01] MEDS: ENOXAPARIN 30 MG/0.3 ML SYG SC SCH (10:11)
[2016-07-01] MEDS: ESCITALOPRAM 10 MG TAB PO SCH (10:13)
[2016-07-01] MEDS: GABAPENTIN 300 MG CAP PO SCH (10:13)
[2016-07-01] MEDS: CLOZAPINE 100 MG TABLET PO SCH ×3 (10:13→21:56)
[2016-07-01] MEDS: LACTOBACILLUS RHAMNOSUS CAP PO SCH ×2 (10:13→21:01)
[2016-07-01] MEDS: POLYETHYLENE GLYCOL 17 GM PACKET PO SCH (10:14)
--- NOTE | 2016-07-01 11:52 | PN ---
Date/Time of Note Date/Time of Note DATE: 07/01/16 TIME: 11:43 Assessment/Plan VTE Prophylaxis VTE Prophylaxis Intervention: LMWH Lines/Catheters IV [facility] Type (from [facility] [facility] Urinary Cath still in place: No Assessment/Plan Chief Complaint/Hosp Course A/P 1) Severe Sepsis; Acute Cystitis (morganelli) related; stable, finishing levaquin. 2) ARF/CKD; stable; cont outpt nephrology care; doesnt want HD. 3) Hydronephrosis; mild/ asymptomatic. Ho temporary stenting ~ [facility]/ urology ? 4) DI. U osm appears low; off ivf. cont to push po fluids. adjusted meds. 5) Chr Schizophrenia; I tapered/ lower his clozapine dose a little due to lethargy/ facial rash; Level is a send out. 6) Anemia 7) Ftt; SNF? vs back to [facility]isted [facility] w cargiver/ condom catheter. 8) Chr urinary retention; Urology ~ [facility] recomm straight cath Q8hrs, +/ - suprapubic prn. I asked brother for office phone#. Dr Martin assistance appreciated: recomm condom catheter use. 9) Tremors/ delirium; side effects of clozapine? 10) Facial erythema? appreciate ID assistance. Problems: Subjective 24 Hr Interval Summary Free Text/Dictation S - no events. eating, no distress. tolerated clozapine taper. appreciate ID assistance. TelePsy re eval for stable schizophrenia pending. Outpt Psyc has noted stability with his high dose clozapine. Psychiatry # = [phone] Exam/Review of Systems Vital Signs Vitals Vital Signs Date Time Temp Pulse Resp B/P Pulse Ox O2 Delivery O2 Flow Rate FiO2 07/01/16 08:05 98.2 79 18 100/63 98 06/30/16 20:00 Room Air Intake and Output 06/30/16 06/30/16 07/01/16 15:00 23:00 07:00 Intake Total 1500 ml 360 ml Output Total 1600 ml 600 ml Balance -100 ml -240 ml Exam Constitutional: alert Head: other (hyperpigmentation vs facial erythemateous rash.) Respiratory: clear to auscultation Cardiovascular: regular rate and rhythm Gastrointestinal: non-tender (nd; no r r g), soft Results Result Diagram: 1/1/17 0431 1/1/17 0431 Results 24 hrs Laboratory Tests Test 07/01/16 04:31 Alanine Aminotransferase (ALT/SGPT) 27 Albumin 3.5 Albumin/Globulin Ratio 1.16 Alkaline Phosphatase 138 H Anion Gap 20 H Aspartate Amino Transf (AST/SGOT) 21 Basophils # 0.1 Basophils % 0.7 Blood Morphology Comment Blood Urea Nitrogen 53 H Calcium Level 8.5 Carbon Dioxide Level 23 Chloride Level 101 Creatinine 3.93 H Direct Bilirubin 0.00 Eosinophils # 0.5 Eosinophils % 3.7 Globulin 3.00 Glucose Level 106 Hematocrit 32.8 L Hemoglobin 10.9 L Indirect Bilirubin 0.0 Lymphocytes # 3.1 H Lymphocytes % 25.4 Mean Corpuscular Hemoglobin 29.5 Mean Corpuscular Hemoglobin Concent 33.4 Mean Corpuscular Volume 88.4 Mean Platelet Volume 8.6 Monocytes # 0.9 Monocytes % 7.1 Neutrophils # 7.7 H Neutrophils % 63.1 Nucleated Red Blood Cells # 0.0 Nucleated Red Blood Cells % 0.0 Platelet Count 256 Potassium Level 3.5 Red Blood Count 3.71 L Red Cell Distribution Width 15.0 H Sodium Level 140 Total Bilirubin 0.0 L Total Protein 6.5 White Blood Count 12.3 H Medications Medications Current Medications Ondansetron HCl (Zofran Inj) 4 mg Q6H PRN IV NAUSEA AND/OR VOMITING; Start at 18:00 Acetaminophen (Tylenol Tab) 650 mg Q6H PRN PO PAIN LEVEL 1-3 OR FEVER; Start 06/18/16 at 18:00 Acetaminophen/ Hydrocodone Bitart ([place] (5/325)) 1 tab Q6H PRN PO MODERATE PAIN LEVEL 4-6; Start 06/18/16 at 18:00 Morphine Sulfate (morphine) 2 mg Q4H PRN IV SEVERE PAIN LEVEL 7-10; Start at 18:00 Docusate Sodium (Colace) 200 mg Q12H PO Last administered on 07/01/16t 06:13; Admin Dose 200 MG; Start 06/18/16 at 18:00 Atorvastatin Calcium (Lipitor) 10 mg QHS PO Last administered on 06/30/16at 21: 50; Admin Dose 10 MG; Start 06/18/16 at 21:00 Bisacodyl (Dulcolax Supp) 10 mg Q24H PRN [place] CONSTIPATION; Start 06/18/16 at 18 :00 Escitalopram Oxalate (Lexapro) 20 mg DAILY PO Last administered on 07/01/16 10: 13; Admin Dose 20 MG; Start 06/19/16 at 09:00 Gabapentin (Neurontin) 300 mg DAILY PO Last administered on 07/01/16 10:13; Admin Dose 300 MG; Start 06/19/16 at 09:00 Mineral Oil (Fleet Mineral Oil Enema) 133 ml DAILY PRN [place] CONSTIPATION; Start 06/18/16 at 18:00 Polyethylene Glycol (Miralax) 17 gm DAILY PO Last administered on 07/01/16 10: 14; Admin Dose 17 GM; Start 06/18/16 at 18:00 Multivit/Ca Carb/ B Cmplx/FA/Prenat ([place]) 1 tab DAILY PO Last administered on 07/01/16 10:11; Admin Dose 1 TAB; Start 06/19/16 at 15:00 Clozapine (Clozaril) 225 mg QAM PO Last administered on 07/01/16 10:13; Admin Dose 225 MG; Start 06/20/16 at 09:00; Status Future hold Enoxaparin Sodium (Lovenox) 30 mg DAILY SC Last administered on 07/01/16 10:11 ; Admin Dose 30 MG; Start 06/25/16 at 10:30 Amiloride HCl (Midamor) 5 mg DAILY PO Last administered on 06/29/16at 09:37; Admin Dose 5 MG; Start 06/26/16 at 09:00 Lactobacillus Acidophilus/ Rhamnosus (Culturelle) 1 cap BID PO Last administered on 07/01/16 10:13; Admin Dose 1 CAP; Start 06/26/16 at 12:00 Lorazepam (Ativan) 0.5 mg Q8H PRN PO ANXIETY Last administered on 06/30/16at 21 :50; Admin Dose 0.5 MG; Start 06/28/16 at 19:30 Hydrochlorothiazide (Hydrochlorothiazide) 12.5 mg DAILY@06 PO Last administered on 06/30/16at 05:31; Admin Dose 12.5 MG; Start 06/30/16 at 06:00 Clozapine (Clozaril) 250 mg QHS PO Last administered on 06/30/16at 21:50; Admin Dose 250 MG; Start 06/30/16 at 21:00 HOA AZAR MD Jul 01, 2016 11:52
--- NOTE | 2016-07-01 16:39 | CONS ---
Date/Time of Note Date/Time of Note DATE: 07/01/16 TIME: 16:37 Assessment/Plan Assessment/Plan Chief Complaint/Hosp Course ID PROGRESS NOTE TOTAL ABX DAY # : OFF ABX DAY #1 s/p Levaquin s/p Ceftriaxone 24H INTERVAL SUMMARY * A/A/O -> no fevers, no dysuria * (+)Dark greyish-blue facial hyperpigmentation rash = looks like drug rash * (-)Facial pruritus (-)Erythema (-)Facial edema, facial skin intact PHYSICAL EXAMINATION: GENERAL: 56 yo M HEENT: Dark greyish/blue hyperpigmentation entire face to hairline and neck, except normal nasal bridge skin NECK: Supple, trachea midline. CHEST: Rise symmetrical. Breath sounds diminished to bases. HEART: Pulse RRR ABDOMEN: Soft, bowel tones present. EXTREMITIES: With trace edema. SKIN: Multiple decubitus. ID ASSESSMENT: 56 yo M admit with: 1) s/p Sepsis due to GNR complicated UTI/Pyelonephritis w/left hydronephrosis on renal US. * s/p 13 days ABX Ceftrixone -> followed by Levaquin 2) Chronic urinary retention requiring In/Out Catheterization 3) Hydronephrosis; mild/ asymptomatic. Ho temporary stenting ~ [facility]/ urology ? 4) Facial dark hyperpigmentation greyish/blue facial rash = looks like drug rash , no edema, no pruritus, no open skin * Patient report had this drug rash after given medication "Lamictal" which I do not see on this admission * Possible drug rash related to combination of his meds + Levaquin = Levaquin DC 'd 5) Schizophrenia-> on Clozapine with dose lowered by hospitalist due to drug rash 6) Anemia 7) ARF/CKD; stable; 9) Tremors/ delirium; side effects of clozapine? CURRENT ABX: OFF ABX DAY #1 s/p Levaquin x 4 days s/p Ceftriaxone ID RECOMMENDATIONS/PLAN: Complicated UTI/Pyelo? has been treated w/13 days total ABX ABC DC'd 06/30/16 => Concern dark facial greyish/blue hyperpigmentation rash related to drug reaction Avoid ABX until sxs of recurrent UTI/urosepsis Checking MRSA Nares . . Problems: Consultation Date/Type/Reason Admit Date/Time Jun 18, 2016 at 14:22 Initial Consult Date Exam/Review of Systems Vital Signs Vitals Vital Signs Date Time Temp Pulse Resp B/P Pulse Ox O2 Delivery O2 Flow Rate FiO2 07/01/16 08:05 98.2 79 18 100/63 98 06/30/16 20:00 Room Air Intake and Output 06/30/16 06/30/16 07/01/16 15:00 23:00 07:00 Intake Total 1500 ml 360 ml Output Total 1600 ml 600 ml Balance -100 ml -240 ml Results Result Diagram: 07/01/16 0431 07/01/16 0431 Results 24 hrs Laboratory Tests Test 07/01/16 04:31 Alanine Aminotransferase (ALT/SGPT) 27 Albumin 3.5 Albumin/Globulin Ratio 1.16 Alkaline Phosphatase 138 H Anion Gap 20 H Aspartate Amino Transf (AST/SGOT) 21 Basophils # 0.1 Basophils % 0.7 Blood Morphology Comment Blood Urea Nitrogen 53 H Calcium Level 8.5 Carbon Dioxide Level 23 Chloride Level 101 Creatinine 3.93 H Direct Bilirubin 0.00 Eosinophils # 0.5 Eosinophils % 3.7 Globulin 3.00 Glucose Level 106 Hematocrit 32.8 L Hemoglobin 10.9 L Indirect Bilirubin 0.0 Lymphocytes # 3.1 H Lymphocytes % 25.4 Mean Corpuscular Hemoglobin 29.5 Mean Corpuscular Hemoglobin Concent 33.4 Mean Corpuscular Volume 88.4 Mean Platelet Volume 8.6 Monocytes # 0.9 Monocytes % 7.1 Neutrophils # 7.7 H Neutrophils % 63.1 Nucleated Red Blood Cells # 0.0 Nucleated Red Blood Cells % 0.0 Platelet Count 256 Potassium Level 3.5 Red Blood Count 3.71 L Red Cell Distribution Width 15.0 H Sodium Level 140 Total Bilirubin 0.0 L Total Protein 6.5 White Blood Count 12.3 H Medications Medications Current Medications Ondansetron HCl (Zofran Inj) 4 mg Q6H PRN IV NAUSEA AND/OR VOMITING; Start at 18:00 Acetaminophen (Tylenol Tab) 650 mg Q6H PRN PO PAIN LEVEL 1-3 OR FEVER; Start 06/18/16 at 18:00 Acetaminophen/ Hydrocodone Bitart ([place] (5/325)) 1 tab Q6H PRN PO MODERATE PAIN LEVEL 4-6; Start 06/18/16 at 18:00 Morphine Sulfate (morphine) 2 mg Q4H PRN IV SEVERE PAIN LEVEL 7-10; Start at 18:00 Docusate Sodium (Colace) 200 mg Q12H PO Last administered on 07/01/16 06:13; Admin Dose 200 MG; Start 06/18/16 at 18:00 Atorvastatin Calcium (Lipitor) 10 mg QHS PO Last administered on 06/30/16at 21: 50; Admin Dose 10 MG; Start 06/18/16 at 21:00 Bisacodyl (Dulcolax Supp) 10 mg Q24H PRN [place] CONSTIPATION; Start 06/18/16 at 18 :00 Escitalopram Oxalate (Lexapro) 20 mg DAILY PO Last administered on 07/01/16 10: 13; Admin Dose 20 MG; Start 06/19/16 at 09:00 Gabapentin (Neurontin) 300 mg DAILY PO Last administered on 07/01/16 10:13; Admin Dose 300 MG; Start 06/19/16 at 09:00 Mineral Oil (Fleet Mineral Oil Enema) 133 ml DAILY PRN [place] CONSTIPATION; Start 06/18/16 at 18:00 Polyethylene Glycol (Miralax) 17 gm DAILY PO Last administered on 07/01/16 10: 14; Admin Dose 17 GM; Start 06/18/16 at 18:00 Multivit/Ca Carb/ B Cmplx/FA/Prenat ([place]) 1 tab DAILY PO Last administered on 07/01/16 10:11; Admin Dose 1 TAB; Start 06/19/16 at 15:00 Clozapine (Clozaril) 225 mg QAM PO Last administered on 07/01/16 10:13; Admin Dose 225 MG; Start 06/20/16 at 09:00; Status Future hold Enoxaparin Sodium (Lovenox) 30 mg DAILY SC Last administered on 07/01/16 10:11 ; Admin Dose 30 MG; Start 06/25/16 at 10:30 Amiloride HCl (Midamor) 5 mg DAILY PO Last administered on 06/29/16at 09:37; Admin Dose 5 MG; Start 06/26/16 at 09:00 Lactobacillus Acidophilus/ Rhamnosus (Culturelle) 1 cap BID PO Last administered on 07/01/16 10:13; Admin Dose 1 CAP; Start 06/26/16 at 12:00 Lorazepam (Ativan) 0.5 mg Q8H PRN PO ANXIETY Last administered on 06/30/16at 21 :50; Admin Dose 0.5 MG; Start 06/28/16 at 19:30 Hydrochlorothiazide (Hydrochlorothiazide) 12.5 mg DAILY@06 PO Last administered on 06/30/16at 05:31; Admin Dose 12.5 MG; Start 06/30/16 at 06:00 Clozapine (Clozaril) 250 mg QHS PO Last administered on 06/30/16at 21:50; Admin Dose 250 MG; Start 06/30/16 at 21:00 JU BAL NP Jul 01, 2016 16:38
--- NOTE | 2016-07-01 18:11 | PN ---
DATE: 07/01/2016 SUBJECTIVE: The patient is stable, no acute events overnight. No fevers, chills, nausea, vomiting, no shortness breath. OBJECTIVE: VITAL SIGNS: Blood pressure is 100/63, respirations 18, pulse 79, temperature 98.2. HEENT: Head is normocephalic. NECK: Supple. HEART: Regular rate. LUNGS: Show diminished breath sounds at base. ABDOMEN: Soft, nontender to palpation without rebound or guarding. EXTREMITIES: Negative for clubbing, cyanosis, no edema. DERMATOLOGIC: No rashes. MUSCULOSKELETAL: No joint effusions. NEUROLOGIC: No change in exam. MEDICATIONS: Reviewed. LABORATORY DATA: Showed sodium 140, potassium 3.5, chloride 101, BUN 53, creatinine 3.93. ASSESSMENT AND PLAN: 1. Nonoliguric acute kidney injury on top of chronic kidney disease stage IV. Etiology secondary t o hemodynamics. Renal function appears to have stabilized around a creatinine of 3.8 to 4 mg/dL. T he patient's diuretic regimen was reduced. At this point, continue current treatment plan, supporti ve care, renally dose meds, avoid nephrotoxins. No plans for dialysis per family and patient's requ est. 2. Diabetes insipidus improved. Continue hydrochlorothiazide, amiloride. 3. 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 As stated abo ve, patient with acute kidney injury. Continue supportive care. 4. Mineral bone disorder. Continue to monitor calcium and phosphorus levels. 5. Anemia. Continue to monitor hemoglobin and hematocrit levels. 6. Sepsis secondary to urinary tract infection. The patient completing antibiotic course. 7. Schizophrenia, psychosis, continue to monitor. Follow up with psychiatry. Dictated By: RADHAMES YIP/IVONE Conf#: [id number] DID#: [id number]
[2016-07-01 19:51] VITALS: BP 98/58; RESP 21
[2016-07-01] MEDS: ATORVASTATIN 10 MG TAB PO SCH (21:01)
[2016-07-02] MEDS: HYDROCHLOROTHIAZIDE 12.5 MG CAP PO SCH (05:46)
[2016-07-02] MEDS: DOCUSATE SODIUM 100 MG CAP PO SCH ×2 (05:48→18:00)
[2016-07-02] MEDS: LEVOTHYROXINE 100 MCG TAB PO SCH (06:24)
[2016-07-02 06:40] LABS: POTASSIUM 3.4 mmol/L (3.5-5.1)
[2016-07-02 06:43] LABS: CALCIUM 8.4 mg/dl (8.4-10.2); CREATININE 3.72 mg/dl (0.61-1.24); PHOSPHORUS 4.9 mg/dl (2.5-4.9)
[2016-07-02 06:44] LABS: MAGNESIUM 2.8 mg/dl (1.7-2.5)
[2016-07-02 07:54] VITALS: BP 98/65; RESP 18
[2016-07-02] MEDS: POLYETHYLENE GLYCOL 17 GM PACKET PO SCH (09:00)
[2016-07-02] MEDS: AMILORIDE 5 MG TAB PO SCH (09:00)
[2016-07-02] MEDS ORDERED: POTASSIUM CHLORIDE (SR) 20 MEQ TAB PO STA (09:33)
[2016-07-02] MEDS: ESCITALOPRAM 10 MG TAB PO SCH (09:34)
[2016-07-02] MEDS: CLOZAPINE 100 MG TABLET PO SCH ×3 (09:35→22:38)
[2016-07-02] MEDS: LACTOBACILLUS RHAMNOSUS CAP PO SCH ×2 (09:40→20:43)
[2016-07-02] MEDS: GABAPENTIN 300 MG CAP PO SCH (09:40)
[2016-07-02] MEDS: MULTIVIT/CA CARB/B CMPLX/FA TAB PO SCH (09:41)
[2016-07-02] MEDS: ENOXAPARIN 30 MG/0.3 ML SYG SC SCH (09:46)
--- NOTE | 2016-07-02 12:03 | PN ---
DATE: 07/02/2016 SUBJECTIVE: The patient is stable, no acute events overnight. No fevers, chills, nausea, vomiting, shortness of breath. OBJECTIVE: VITAL SIGNS: Blood pressure 98/65, respiration 18, pulse 82, temperature 98.4. HEENT: Head is normocephalic. NECK: Supple. HEART: Regular rate. LUNGS: Show diminished breath sounds at the base. ABDOMEN: Soft, nontender to palpation without rebound or guarding. EXTREMITIES: Negative for clubbing, cyanosis. No edema. DERMATOLOGIC: No rashes. MUSCULOSKELETAL EXAMINATION: No joint effusions. NEUROLOGIC: No change in exam. MEDICATIONS: The patient's medications have been reviewed. LABORATORY DATA: Shows sodium 140, potassium 3.4, chloride 100, BUN 58, creatinine 3.72, magnesium 2.8. White count 12.3, hemoglobin 10.9, hematocrit 32.8, platelet count is 256. ASSESSMENT AND PLAN: 1. Nonoliguric acute kidney injury on top of chronic kidney disease stage IV. Etiology of acute ki dney injury is secondary to hemodynamics. Renal function appears to have stabilized around a creati nine of 3.5 to 4.0 mg/dL. This is possibly the patient's new baseline. At this point, continue cur rent treatment plan, supportive care, renally dose all medications, avoid nephrotoxins. No plans fo r dialysis per patient and the patient's family. 2. Diabetes insipidus improved. Continue low-dose hydrochlorothiazide, amiloride 3. Chronic kidney disease, stage IIIB/IV secondary to chronic opium use. The patient has acute kid constantino injury as stated above. Continue supportive care. 4. Mineral bone disorder. Continue to monitor calcium and phosphorus levels. 5. Hypokalemia. Replete potassium chloride. 6. Anemia. Continue to monitor hemoglobin and hematocrit levels. 7. Sepsis secondary to urinary tract infection. Continue current antibiotic course. 8. Schizophrenic psychosis. Continue to monitor. Dictated By: RADHAMES YIP/IVONE Conf#: [id number] DID#: [id number]
--- NOTE | 2016-07-02 17:00 | CONS ---
Date/Time of Note Date/Time of Note DATE: 07/02/16 TIME: 16:58 Assessment/Plan Assessment/Plan Chief Complaint/Hosp Course ID PROGRESS NOTE TOTAL ABX DAY # : OFF ABX DAY #2 s/p Levaquin s/p Ceftriaxone 24H INTERVAL SUMMARY * Still pending MRSA Nares screen, WBC not done today, was down yesterday = doubt facial cellulitis == A/A/O -> no fevers, no dysuria * (+)Dark greyish-blue facial hyperpigmentation rash = looks like drug rash * (-)Facial pruritus (-)Erythema (-)Facial edema, facial skin intact PHYSICAL EXAMINATION: GENERAL: 56 yo M HEENT: Dark greyish/blue hyperpigmentation entire face to hairline and neck, except normal nasal bridge skin NECK: Supple, trachea midline. CHEST: Rise symmetrical. Breath sounds diminished to bases. HEART: Pulse RRR ABDOMEN: Soft, bowel tones present. EXTREMITIES: With trace edema. SKIN: Multiple decubitus. ID ASSESSMENT: 56 yo M admit with: 1) s/p Sepsis due to GNR complicated UTI/Pyelonephritis w/left hydronephrosis on renal US. * s/p 13 days ABX Ceftrixone -> followed by Levaquin 2) Chronic urinary retention requiring In/Out Catheterization 3) Hydronephrosis; mild/ asymptomatic. Ho temporary stenting ~ [facility]/ urology ? 4) Facial dark hyperpigmentation greyish/blue facial rash = looks like drug rash , no edema, no pruritus, no open skin * Patient report had this drug rash after given medication "Lamictal" which I do not see on this admission * Possible drug rash related to combination of his meds + Levaquin = Levaquin DC 'd 5) Schizophrenia-> on Clozapine with dose lowered by hospitalist due to drug rash 6) Anemia 7) ARF/CKD; stable; 9) Tremors/ delirium; side effects of clozapine? CURRENT ABX: OFF ABX DAY #1 s/p Levaquin x 4 days s/p Ceftriaxone ID RECOMMENDATIONS/PLAN: Complicated UTI/Pyelo? has been treated w/13 days total ABX ABC DC'd 06/30/16 => Concern dark facial greyish/blue hyperpigmentation rash related to drug reaction Avoid ABX until sxs of recurrent UTI/urosepsis Checking MRSA Nares -> Result still pending . . Problems: Consultation Date/Type/Reason Admit Date/Time Jun 18, 2016 at 14:22 Exam/Review of Systems Vital Signs Vitals Vital Signs Date Time Temp Pulse Resp B/P Pulse Ox O2 Delivery O2 Flow Rate FiO2 07/02/16 07:54 98.4 82 18 98/65 99 06/30/16 20:00 Room Air Intake and Output 07/01/16 07/01/16 07/02/16 15:00 23:00 07:00 Intake Total 1000 ml 730 ml Output Total 1550 ml 1000 ml Balance -550 ml -270 ml Results Result Diagram: 07/01/16 0431 07/02/16 0425 Results 24 hrs Laboratory Tests Test 07/02/16 04:25 Anion Gap 19 H Blood Urea Nitrogen 58 H Calcium Level 8.4 Carbon Dioxide Level 24 Chloride Level 100 Creatinine 3.72 H Glucose Level 103 Magnesium Level 2.8 H Phosphorus Level 4.9 Potassium Level 3.4 L Sodium Level 140 Medications Medications Current Medications Ondansetron HCl (Zofran Inj) 4 mg Q6H PRN IV NAUSEA AND/OR VOMITING; Start at 18:00 Acetaminophen (Tylenol Tab) 650 mg Q6H PRN PO PAIN LEVEL 1-3 OR FEVER; Start 06/18/16 at 18:00 Acetaminophen/ Hydrocodone Bitart ([place] (5/325)) 1 tab Q6H PRN PO MODERATE PAIN LEVEL 4-6; Start 06/18/16 at 18:00 Morphine Sulfate (morphine) 2 mg Q4H PRN IV SEVERE PAIN LEVEL 7-10; Start at 18:00 Docusate Sodium (Colace) 200 mg Q12H PO Last administered on 07/02/16 05:48; Admin Dose 200 MG; Start 06/18/16 at 18:00 Atorvastatin Calcium (Lipitor) 10 mg QHS PO Last administered on 07/01/16 21:01 ; Admin Dose 10 MG; Start 06/18/16 at 21:00 Bisacodyl (Dulcolax Supp) 10 mg Q24H PRN [place] CONSTIPATION; Start 06/18/16 at 18 :00 Escitalopram Oxalate (Lexapro) 20 mg DAILY PO Last administered on 07/02/16 09: 34; Admin Dose 20 MG; Start 06/19/16 at 09:00 Gabapentin (Neurontin) 300 mg DAILY PO Last administered on 07/02/16 09:40; Admin Dose 300 MG; Start 06/19/16 at 09:00 Mineral Oil (Fleet Mineral Oil Enema) 133 ml DAILY PRN [place] CONSTIPATION; Start 06/18/16 at 18:00 Polyethylene Glycol (Miralax) 17 gm DAILY PO Last administered on 07/01/16 10: 14; Admin Dose 17 GM; Start 06/18/16 at 18:00 Multivit/Ca Carb/ B Cmplx/FA/Prenat ([place]) 1 tab DAILY PO Last administered on 07/02/16 09:41; Admin Dose 1 TAB; Start 06/19/16 at 15:00 Clozapine (Clozaril) 225 mg QAM PO Last administered on 07/02/16 09:35; Admin Dose 225 MG; Start 06/20/16 at 09:00; Status Future hold Enoxaparin Sodium (Lovenox) 30 mg DAILY SC Last administered on 07/02/16 09:46 ; Admin Dose 30 MG; Start 06/25/16 at 10:30 Amiloride HCl (Midamor) 5 mg DAILY PO Last administered on 06/29/16 09:37; Admin Dose 5 MG; Start 06/26/16 at 09:00 Lactobacillus Acidophilus/ Rhamnosus (Culturelle) 1 cap BID PO Last administered on 07/02/16 09:40; Admin Dose 1 CAP; Start 06/26/16 at 12:00 Lorazepam (Ativan) 0.5 mg Q8H PRN PO ANXIETY Last administered on 06/30/16at 21 :50; Admin Dose 0.5 MG; Start 06/28/16 at 19:30 Hydrochlorothiazide (Hydrochlorothiazide) 12.5 mg DAILY@06 PO Last administered on 07/02/16 05:46; Admin Dose 12.5 MG; Start 06/30/16 at 06:00 Clozapine (Clozaril) 250 mg QHS PO Last administered on 07/01/16 21:56; Admin Dose 250 MG; Start 06/30/16 at 21:00 JU BAL NP Jul 02, 2016 16:59
[2016-07-02 19:38] VITALS: BP 93/57; RESP 19
[2016-07-02] MEDS: ATORVASTATIN 10 MG TAB PO SCH (20:43)
--- NOTE | 2016-07-02 23:17 | PN ---
Date/Time of Note Date/Time of Note DATE: 07/02/16 TIME: 23:16 Assessment/Plan VTE Prophylaxis VTE Prophylaxis Intervention: SCD's Lines/Catheters [facility] Urinary Cath still in place: No Assessment/Plan Assessment/Plan A/P 1) Severe Sepsis; Acute Cystitis (morganelli) related; stable, finishing levaquin. 2) ARF/CKD; stable; cont outpt nephrology care; doesnt want HD. 3) Hydronephrosis; mild/ asymptomatic. Ho temporary stenting ~ [facility]/ urology ? 4) DI. U osm appears low; off ivf. cont to push po fluids. adjusted meds. 5) Chr Schizophrenia; I tapered/ lower his clozapine dose a little due to lethargy/ facial rash; Level is a send out. 6) Anemia 7) Ftt; SNF? vs back to Assisted Living w cargiver/ condom catheter. 8) Chr urinary retention; Urology ~ [place] recomm straight cath Q8hrs, +/ - suprapubic prn. I asked brother for office phone#. Dr Martin assistance appreciated: recomm condom catheter use. 9) Tremors/ delirium; side effects of clozapine? 10) Facial erythema? appreciate ID assistance. Exam/Review of Systems Vital Signs Vitals Vital Signs Date Time Temp Pulse Resp B/P Pulse Ox O2 Delivery O2 Flow Rate FiO2 07/02/16 19:38 98.0 86 19 93/57 99 06/30/16 20:00 Room Air Intake and Output 07/01/16 07/01/16 07/02/16 14:59 22:59 06:59 Intake Total 1000 ml 730 ml Output Total 1550 ml 1000 ml Balance -550 ml -270 ml Exam Constitutional: alert Head: other (hyperpigmentation vs facial erythemateous rash.) Respiratory: clear to auscultation Cardiovascular: regular rate and rhythm Gastrointestinal: non-tender (nd; no r r g), soft Results Result Diagram: 07/01/16 0431 07/02/16 0425 Results 24 hrs Laboratory Tests Test 07/02/16 04:25 Anion Gap 19 H Blood Urea Nitrogen 58 H Calcium Level 8.4 Carbon Dioxide Level 24 Chloride Level 100 Creatinine 3.72 H Glucose Level 103 Magnesium Level 2.8 H Phosphorus Level 4.9 Potassium Level 3.4 L Sodium Level 140 Medications Medications Current Medications Ondansetron HCl (Zofran Inj) 4 mg Q6H PRN IV NAUSEA AND/OR VOMITING; Start at 18:00 Acetaminophen (Tylenol Tab) 650 mg Q6H PRN PO PAIN LEVEL 1-3 OR FEVER; Start 06/18/16 at 18:00 Acetaminophen/ Hydrocodone Bitart ([place] (5/325)) 1 tab Q6H PRN PO MODERATE PAIN LEVEL 4-6; Start 06/18/16 at 18:00 Morphine Sulfate (morphine) 2 mg Q4H PRN IV SEVERE PAIN LEVEL 7-10; Start at 18:00 Docusate Sodium (Colace) 200 mg Q12H PO Last administered on 07/02/16 05:48; Admin Dose 200 MG; Start 06/18/16 at 18:00 Atorvastatin Calcium (Lipitor) 10 mg QHS PO Last administered on 07/02/16 20:43 ; Admin Dose 10 MG; Start 06/18/16 at 21:00 Bisacodyl (Dulcolax Supp) 10 mg Q24H PRN [place] CONSTIPATION; Start 06/18/16 at 18 :00 Escitalopram Oxalate (Lexapro) 20 mg DAILY PO Last administered on 07/02/16 09: 34; Admin Dose 20 MG; Start 06/19/16 at 09:00 Gabapentin (Neurontin) 300 mg DAILY PO Last administered on 07/02/16 09:40; Admin Dose 300 MG; Start 06/19/16 at 09:00 Mineral Oil (Fleet Mineral Oil Enema) 133 ml DAILY PRN [place] CONSTIPATION; Start 06/18/16 at 18:00 Polyethylene Glycol (Miralax) 17 gm DAILY PO Last administered on 07/01/16 10: 14; Admin Dose 17 GM; Start 06/18/16 at 18:00 Multivit/Ca Carb/ B Cmplx/FA/Prenat ([place]) 1 tab DAILY PO Last administered on 07/02/16 09:41; Admin Dose 1 TAB; Start 06/19/16 at 15:00 Clozapine (Clozaril) 225 mg QAM PO Last administered on 07/02/16 09:35; Admin Dose 225 MG; Start 06/20/16 at 09:00; Status Future hold Enoxaparin Sodium (Lovenox) 30 mg DAILY SC Last administered on 07/02/16 09:46 ; Admin Dose 30 MG; Start 06/25/16 at 10:30 Amiloride HCl (Midamor) 5 mg DAILY PO Last administered on 06/29/16at 09:37; Admin Dose 5 MG; Start 06/26/16 at 09:00 Lactobacillus Acidophilus/ Rhamnosus (Culturelle) 1 cap BID PO Last administered on 07/02/16 20:43; Admin Dose 1 CAP; Start 06/26/16 at 12:00 Lorazepam (Ativan) 0.5 mg Q8H PRN PO ANXIETY Last administered on 06/30/16at 21 :50; Admin Dose 0.5 MG; Start 06/28/16 at 19:30 Hydrochlorothiazide (Hydrochlorothiazide) 12.5 mg DAILY@06 PO Last administered on 07/02/16 05:46; Admin Dose 12.5 MG; Start 06/30/16 at 06:00 Clozapine (Clozaril) 250 mg QHS PO Last administered on 07/02/16 22:38; Admin Dose 250 MG; Start 06/30/16 at 21:00 YOLANDA FERNANDEZ MD Jul 02, 2016 23:16
[2016-07-03 05:24] LABS: POTASSIUM 4.2 mmol/L (3.5-5.1)
[2016-07-03 05:27] LABS: CREATININE 3.76 mg/dl (0.61-1.24)
[2016-07-03 05:28] LABS: CALCIUM 8.9 mg/dl (8.4-10.2); MAGNESIUM 2.7 mg/dl (1.7-2.5); PHOSPHORUS 4.8 mg/dl (2.5-4.9)
[2016-07-03] MEDS: DOCUSATE SODIUM 100 MG CAP PO SCH ×2 (05:46→17:40)
[2016-07-03] MEDS: HYDROCHLOROTHIAZIDE 12.5 MG CAP PO SCH (05:47)
[2016-07-03] MEDS: LEVOTHYROXINE 100 MCG TAB PO SCH (07:13)
[2016-07-03 07:37] VITALS: BP 101/62; RESP 16
[2016-07-03] MEDS: AMILORIDE 5 MG TAB PO SCH (09:00)
[2016-07-03] MEDS: ENOXAPARIN 30 MG/0.3 ML SYG SC SCH (09:15)
[2016-07-03] MEDS: MULTIVIT/CA CARB/B CMPLX/FA TAB PO SCH (09:16)
[2016-07-03] MEDS: ESCITALOPRAM 10 MG TAB PO SCH (09:16)
[2016-07-03] MEDS: GABAPENTIN 300 MG CAP PO SCH (09:16)
[2016-07-03] MEDS: CLOZAPINE 100 MG TABLET PO SCH ×4 (09:17→21:32)
[2016-07-03] MEDS: POLYETHYLENE GLYCOL 17 GM PACKET PO SCH (09:17)
[2016-07-03] MEDS: LACTOBACILLUS RHAMNOSUS CAP PO SCH ×2 (09:33→20:38)
--- NOTE | 2016-07-03 12:05 | PN ---
DATE: SUBJECTIVE: The patient is stable, no acute events overnight. OBJECTIVE: VITAL SIGNS: Blood pressure 101/62, respirations 16, pulse 83, temperature 97.6. HEENT: Head is normocephalic. NECK: Supple. HEART: Regular rate. LUNGS: Show diminished breath sounds at base. ABDOMEN: Soft, nontender to palpation. No rebound or guarding. EXTREMITIES: Negative for clubbing, cyanosis, no edema. DERMATOLOGIC: No rashes. MUSCULOSKELETAL: No joint effusions. NEUROLOGIC: No change in exam. MEDICATIONS: The patient's medications have been reviewed. LABORATORY DATA: Showed sodium 140, potassium 4.2, chloride 101, BUN 57, creatinine 3.76, magnesium 2.7. ASSESSMENT AND PLAN: 1. Nonoliguric acute kidney injury on top of chronic kidney disease stage IV. Etiology of acute ki dney injury is secondary to hemodynamics. Renal function appears to have stabilized around a creati nine of 3.5 to 4 mg/dL. Plan at this point is to continue current treatment plan. Continue support cheri care, renally dose all meds, avoid nephrotoxins. The patient does not wish to pursue dialysis i f renal function should further decline, according to the patient and the patient's family. 2. Nephrogenic diabetes insipidus, improved. Continue low-dose hydrochlorothiazide and amiloride. 3. 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 Continue to monitor and continue to treat acute kidney injury as stated above. 4. Mineral bone syndrome. Continue to monitor calcium and phosphorus levels. 5. Hypokalemia, improved. 6. Anemia. Continue to monitor hemoglobin and hematocrit levels. 7. Sepsis secondary to urinary tract infection. Continue current antibiotic regimen. 8. History of schizophrenia, psychosis, continue to monitor. Dictated By: RADHAMES YIP/IVONE Conf#: [id number] DID#: [id number]
--- NOTE | 2016-07-03 18:40 | PN ---
Date/Time of Note Date/Time of Note DATE: 07/03/16 TIME: 17:46 Assessment/Plan VTE Prophylaxis VTE Prophylaxis Intervention: LMWH Lines/Catheters IV C[facility] Type (from [facility] Urinary Cath still in place: No Assessment/Plan Assessment/Plan 1) Severe Sepsis; Acute Cystitis (morganelli) related; stable,s/p treatment 2) ARF/CKD; stable; cont outpt nephrology care; doesnt want HD. 3) Hydronephrosis; mild/ asymptomatic. Ho temporary stenting ~ [facility]/ urology ? 4) DI. U osm appears low; off ivf. cont to push po fluids. adjusted meds. 5) Chr Schizophrenia; I tapered/ lower his clozapine dose a little due to lethargy/ facial rash; Level is a send out. 6) Anemia 7) Ftt; SNF? vs back to Assisted Living w caregiver 8) Chr urinary retention; Urology ~ [place] recomm straight cath Q8hrs, +/ - suprapubic prn. I asked brother for office phone#. Dr Martin assistance appreciated: recomm condom catheter use. 9) Tremors/ delirium; side effects of clozapine? 10) Facial erythema? appreciate ID assistance. DISP: pending placement. Per SW, pt with no medicare days Subjective 24 Hr Interval Summary Free Text/Dictation pt had urinary retention Exam/Review of Systems Vital Signs Vitals Vital Signs Date Time Temp Pulse Resp B/P Pulse Ox O2 Delivery O2 Flow Rate FiO2 07/03/16 07:37 97.6 83 16 101/62 100 06/30/16 20:00 Room Air Intake and Output 07/02/16 07/02/16 07/03/16 15:00 23:00 07:00 Intake Total 1050 ml 950 ml Output Total 1600 ml 650 ml Balance -550 ml 300 ml Exam Constitutional: alert Head: other (hyperpigmentation vs facial erythemateous rash.) Respiratory: clear to auscultation Cardiovascular: regular rate and rhythm Gastrointestinal: non-tender (nd; no r r g), soft Results Result Diagram: 07/01/16 0431 07/03/16 0425 Results 24 hrs Laboratory Tests Test 07/03/16 04:25 Anion Gap 18 H Blood Urea Nitrogen 57 H Calcium Level 8.9 Carbon Dioxide Level 25 Chloride Level 101 Creatinine 3.76 H Glucose Level 116 Magnesium Level 2.7 H Phosphorus Level 4.8 Potassium Level 4.2 Sodium Level 140 Medications Medications Current Medications Ondansetron HCl (Zofran Inj) 4 mg Q6H PRN IV NAUSEA AND/OR VOMITING; Start at 18:00 Acetaminophen (Tylenol Tab) 650 mg Q6H PRN PO PAIN LEVEL 1-3 OR FEVER; Start 06/18/16 at 18:00 Acetaminophen/ Hydrocodone Bitart ([place] (5/325)) 1 tab Q6H PRN PO MODERATE PAIN LEVEL 4-6; Start 06/18/16 at 18:00 Morphine Sulfate (morphine) 2 mg Q4H PRN IV SEVERE PAIN LEVEL 7-10; Start at 18:00 Docusate Sodium (Colace) 200 mg Q12H PO Last administered on 07/03/16 17:40; Admin Dose 200 MG; Start 06/18/16 at 18:00 Atorvastatin Calcium (Lipitor) 10 mg QHS PO Last administered on 07/02/16 20:43 ; Admin Dose 10 MG; Start 06/18/16 at 21:00 Bisacodyl (Dulcolax Supp) 10 mg Q24H PRN [place] CONSTIPATION; Start 06/18/16 at 18 :00 Escitalopram Oxalate (Lexapro) 20 mg DAILY PO Last administered on 07/03/16 09: 16; Admin Dose 20 MG; Start 06/19/16 at 09:00 Gabapentin (Neurontin) 300 mg DAILY PO Last administered on 07/03/16 09:16; Admin Dose 300 MG; Start 06/19/16 at 09:00 Mineral Oil (Fleet Mineral Oil Enema) 133 ml DAILY PRN [place] CONSTIPATION; Start 06/18/16 at 18:00 Polyethylene Glycol (Miralax) 17 gm DAILY PO Last administered on 07/03/16 09: 17; Admin Dose 17 GM; Start 06/18/16 at 18:00 Multivit/Ca Carb/ B Cmplx/FA/Prenat ([place]) 1 tab DAILY PO Last administered on 07/03/16 09:16; Admin Dose 1 TAB; Start 06/19/16 at 15:00 Clozapine (Clozaril) 225 mg QAM PO Last administered on 07/03/16 09:17; Admin Dose 225 MG; Start 06/20/16 at 09:00; Status Future hold Enoxaparin Sodium (Lovenox) 30 mg DAILY SC Last administered on 07/03/16 09:15 ; Admin Dose 30 MG; Start 06/25/16 at 10:30 Amiloride HCl (Midamor) 5 mg DAILY PO Last administered on 06/29/16at 09:37; Admin Dose 5 MG; Start 06/26/16 at 09:00 Lactobacillus Acidophilus/ Rhamnosus (Culturelle) 1 cap BID PO Last administered on 07/03/16 09:33; Admin Dose 1 CAP; Start 06/26/16 at 12:00 Lorazepam (Ativan) 0.5 mg Q8H PRN PO ANXIETY Last administered on 06/30/16at 21 :50; Admin Dose 0.5 MG; Start 06/28/16 at 19:30 Hydrochlorothiazide (Hydrochlorothiazide) 12.5 mg DAILY@06 PO Last administered on 07/02/16 05:46; Admin Dose 12.5 MG; Start 06/30/16 at 06:00 Clozapine (Clozaril) 250 mg QHS PO Last administered on 07/02/16 22:38; Admin Dose 250 MG; Start 06/30/16 at 21:00 YOLANDA FERNANDEZ MD Jul 03, 2016 17:56
[2016-07-03 20:31] VITALS: BP 100/59; RESP 18
[2016-07-03] MEDS: ATORVASTATIN 10 MG TAB PO SCH (20:38)
[2016-07-04] MEDS: DOCUSATE SODIUM 100 MG CAP PO SCH ×2 (05:29→16:29)
[2016-07-04] MEDS: LORAZEPAM 0.5 MG TAB PO PRN (05:36)
[2016-07-04] MEDS: HYDROCHLOROTHIAZIDE 12.5 MG CAP PO SCH (05:36)
[2016-07-04] MEDS: LEVOTHYROXINE 100 MCG TAB PO SCH (06:52)
[2016-07-04 07:55] VITALS: BP 92/58; RESP 18
[2016-07-04] MEDS: GABAPENTIN 300 MG CAP PO SCH (08:46)
[2016-07-04] MEDS: POLYETHYLENE GLYCOL 17 GM PACKET PO SCH (08:46)
[2016-07-04] MEDS: MULTIVIT/CA CARB/B CMPLX/FA TAB PO SCH (08:46)
[2016-07-04] MEDS: LACTOBACILLUS RHAMNOSUS CAP PO SCH ×2 (08:46→20:22)
[2016-07-04] MEDS: ESCITALOPRAM 10 MG TAB PO SCH (08:46)
[2016-07-04] MEDS: ENOXAPARIN 30 MG/0.3 ML SYG SC SCH (08:49)
[2016-07-04] MEDS: AMILORIDE 5 MG TAB PO SCH (08:50)
[2016-07-04] MEDS: CLOZAPINE 100 MG TABLET PO SCH ×3 (09:02→20:22)
--- NOTE | 2016-07-04 10:57 | PN ---
DATE: 07/04/2016 SUBJECTIVE: The patient is stable, no acute events overnight, no fevers, chills, nausea, vomiting, no shortness of breath. OBJECTIVE: VITAL SIGNS: Blood pressure is 92/58, respiration 18, pulse rate 83, temperature 98.1. HEENT: Head is normocephalic. NECK: Supple. HEART: Regular rate. LUNGS: Show diminished breath sounds at the base. ABDOMEN: Soft, nontender to palpation without rebound or guarding. EXTREMITIES: Negative for clubbing, cyanosis, no edema. DERMATOLOGIC: No rashes. MUSCULOSKELETAL: No joint effusions. NEUROLOGIC: No change in exam. MEDICATIONS: The patient's medications have been reviewed. LABORATORY DATA: Has been reviewed. No new labs. ASSESSMENT AND PLAN: 1. Nonoliguric acute kidney injury on top of chronic kidney disease stage IV. Etiology of acute ki dney injury is secondary to hemodynamics. Renal function appears to have stabilized. Creatinine 3. 5 mg/dL. Plan at this point is to continue current treatment plan. Continue supportive care, renal ly dose meds, avoid nephrotoxins. I did speak again with the patient's family, which did state the patient's family have changed their mind and states that they wish to pursue dialysis once the need arise. The patient's current EGFR is around 20 mL per minute. At this point will continue to monit or. No overt signs of uremia. 2. History of nephrogenic diabetes insipidus, improved. The patient is on low-dose hydrochlorothia zide, will continue. 3. Chronic kidney disease, stage IIIB/IV secondary to chronic lithium use. Continue to monitor. C ontinue treat acute kidney injury as stated above. 4. Mineral bone disorder, monitor calcium and phosphorous levels. 5. Hypokalemia, improved. 6. Anemia. Continue to monitor hemoglobin and hematocrit levels. 7. Sepsis secondary to urinary tract infection. Continue current antibiotic regimen. 8. Schizophrenia, psychosis, continue to monitor. Follow up with psychiatry. 9. Urinary retention. The patient is receiving intermittent catheterization. Follow up with urolo gy. Consider possible Samuel catheter placement. Dictated By: RADHAMES RIVAS DO NR/NTS Conf#: [id number] DID#: [id number] CC: CLAUDETTE MILLER MD;*EndCC*
[2016-07-04 15:05] VITALS: BP 113/72; PULSE 88
--- NOTE | 2016-07-04 19:22 | PN ---
Date/Time of Note Date/Time of Note DATE: 07/04/16 TIME: 19:22 Assessment/Plan VTE Prophylaxis VTE Prophylaxis Intervention: SCD's Lines/Catheters IV Catheter Type (from [facility]rs[facility]): [facility] Urinary Cath still in place: No Assessment/Plan Assessment/Plan 1) Severe Sepsis; Acute Cystitis (morganelli) related; stable,s/p treatment 2) ARF/CKD; stable; cont outpt nephrology care; doesnt want HD. 3) Hydronephrosis; mild/ asymptomatic. Ho temporary stenting ~ [facility]/ urology ? 4) DI. U osm appears low; off ivf. cont to push po fluids. adjusted meds. 5) Chr Schizophrenia; I tapered/ lower his clozapine dose a little due to lethargy/ facial rash; Level is a send out. 6) Anemia 7) Ftt; SNF? vs back to Assisted Living w caregiver 8) Chr urinary retention; Urology ~ [place] recomm straight cath Q8hrs, +/ - suprapubic prn. I asked brother for office phone#. Dr Martin assistance appreciated: recomm condom catheter use. 9) Tremors/ delirium; side effects of clozapine? 10) Facial erythema? appreciate ID assistance. DISP: pending placement. Per SW, pt with no medicare days Exam/Review of Systems Vital Signs Vitals Vital Signs Date Time Temp Pulse Resp B/P Pulse Ox O2 Delivery O2 Flow Rate FiO2 07/04/16 15:05 88 113/72 07/04/16 07:55 98.1 18 100 06/30/16 20:00 Room Air Intake and Output 07/03/16 07/03/16 07/04/16 15:00 23:00 07:00 Intake Total 1000 ml 850 ml Output Total 900 ml 1300 ml Balance 100 ml -450 ml Results Result Diagram: 07/01/16 0431 07/03/16 0425 Medications Medications Current Medications Ondansetron HCl (Zofran Inj) 4 mg Q6H PRN IV NAUSEA AND/OR VOMITING; Start at 18:00 Acetaminophen (Tylenol Tab) 650 mg Q6H PRN PO PAIN LEVEL 1-3 OR FEVER; Start 06/18/16 at 18:00 Acetaminophen/ Hydrocodone Bitart ([place] (5/325)) 1 tab Q6H PRN PO MODERATE PAIN LEVEL 4-6; Start 06/18/16 at 18:00 Morphine Sulfate (morphine) 2 mg Q4H PRN IV SEVERE PAIN LEVEL 7-10; Start at 18:00 Docusate Sodium (Colace) 200 mg Q12H PO Last administered on 07/04/16 05:29; Admin Dose 200 MG; Start 06/18/16 at 18:00 Atorvastatin Calcium (Lipitor) 10 mg QHS PO Last administered on 07/03/16 20:38 ; Admin Dose 10 MG; Start 06/18/16 at 21:00 Bisacodyl (Dulcolax Supp) 10 mg Q24H PRN [place] CONSTIPATION; Start 06/18/16 at 18 :00 Escitalopram Oxalate (Lexapro) 20 mg DAILY PO Last administered on 07/04/16 08: 46; Admin Dose 20 MG; Start 06/19/16 at 09:00 Gabapentin (Neurontin) 300 mg DAILY PO Last administered on 07/04/16 08:46; Admin Dose 300 MG; Start 06/19/16 at 09:00 Mineral Oil (Fleet Mineral Oil Enema) 133 ml DAILY PRN [place] CONSTIPATION; Start 06/18/16 at 18:00 Polyethylene Glycol (Miralax) 17 gm DAILY PO Last administered on 07/04/16 08: 46; Admin Dose 17 GM; Start 06/18/16 at 18:00 Multivit/Ca Carb/ B Cmplx/FA/Prenat ([place]) 1 tab DAILY PO Last administered on 07/04/16 08:46; Admin Dose 1 TAB; Start 06/19/16 at 15:00 Clozapine (Clozaril) 225 mg QAM PO Last administered on 07/04/16 09:02; Admin Dose 225 MG; Start 06/20/16 at 09:00; Status Future hold Enoxaparin Sodium (Lovenox) 30 mg DAILY SC Last administered on 07/04/16 08:49 ; Admin Dose 30 MG; Start 06/25/16 at 10:30 Amiloride HCl (Midamor) 5 mg DAILY PO Last administered on 06/29/16at 09:37; Admin Dose 5 MG; Start 06/26/16 at 09:00 Lactobacillus Acidophilus/ Rhamnosus (Culturelle) 1 cap BID PO Last administered on 07/04/16 08:46; Admin Dose 1 CAP; Start 06/26/16 at 12:00 Lorazepam (Ativan) 0.5 mg Q8H PRN PO ANXIETY Last administered on 07/04/16 05: 36; Admin Dose 0.5 MG; Start 06/28/16 at 19:30 Hydrochlorothiazide (Hydrochlorothiazide) 12.5 mg DAILY@06 PO Last administered on 07/04/16 05:36; Admin Dose 12.5 MG; Start 06/30/16 at 06:00 Clozapine (Clozaril) 250 mg QHS PO Last administered on 07/03/16 21:32; Admin Dose 250 MG; Start 06/30/16 at 21:00 YOLANDA FERNANDEZ MD Jul 04, 2016 19:22
[2016-07-04 20:00] VITALS: BP 108/64; PULSE 85; RESP 18
[2016-07-04 20:02] VITALS: BP 108/64; RESP 18
[2016-07-04] MEDS: ATORVASTATIN 10 MG TAB PO SCH (20:21)
[2016-07-05 05:49] LABS: BASOPHIL # 0.1 10^3/ul (0.0-0.1); BASOPHILS % 0.6 % (0.0-2.0); EOSINOPHILS # 0.3 10^3/ul (0.0-0.5); HEMATOCRIT 36.3 % (42.0-52.0); HEMOGLOBIN 11.8 g/dl (14.0-18.0); LYMPHOCYTES % 27.9 % (15.0-51.0); MEAN CORPUSCULAR HEMOGLOBIN 28.9 pg (29.0-33.0); MEAN CORPUSCULAR HGB CONC 32.5 g/dl (32.0-37.0); MEAN CORPUSCULAR VOLUME 88.8 fl (82.0-101.0); MEAN PLATELET VOLUME 9.7 fl (7.4-10.4); MONOCYTE # 0.7 10^3/ul (0.3-0.9); MONOCYTES % 6.8 % (0.0-11.0); NEUTROPHIL # 6.7 10^3/ul (1.6-7.5); NEUTROPHILS % 61.7 % (39.0-77.0); PLATELET COUNT 238 10^3/UL (140-440); RED BLOOD COUNT 4.08 10^6/ul (4.70-6.10); RED CELL DISTRIBUTION WIDTH 15.2 % (11.5-14.5); UNCORRECTED WBC 10.9 10^3/ul (4.8-10.8); WHITE BLOOD COUNT 10.9 10^3/ul (4.8-10.8)
[2016-07-05 05:58] LABS: CONDITION 1; LH ANALYZER COMMENTS 1
[2016-07-05] MEDS: DOCUSATE SODIUM 100 MG CAP PO SCH ×2 (05:58→17:27)
[2016-07-05] MEDS: HYDROCHLOROTHIAZIDE 12.5 MG CAP PO SCH (06:00)
[2016-07-05] MEDS: LEVOTHYROXINE 100 MCG TAB PO SCH (06:00)
[2016-07-05 06:09] LABS: POTASSIUM 3.7 mmol/L (3.5-5.1)
[2016-07-05 06:12] LABS: CREATININE 3.52 mg/dl (0.61-1.24)
[2016-07-05 06:13] LABS: CALCIUM 8.9 mg/dl (8.4-10.2); MAGNESIUM 2.6 mg/dl (1.7-2.5); PHOSPHORUS 4.4 mg/dl (2.5-4.9)
[2016-07-05 08:04] VITALS: BP 97/57; RESP 18
[2016-07-05] MEDS: POLYETHYLENE GLYCOL 17 GM PACKET PO SCH (09:00)
[2016-07-05] MEDS: AMILORIDE 5 MG TAB PO SCH (09:00)
[2016-07-05] MEDS: LACTOBACILLUS RHAMNOSUS CAP PO SCH ×2 (09:02→20:28)
[2016-07-05] MEDS: MULTIVIT/CA CARB/B CMPLX/FA TAB PO SCH (09:02)
[2016-07-05] MEDS: ESCITALOPRAM 10 MG TAB PO SCH (09:02)
[2016-07-05] MEDS: GABAPENTIN 300 MG CAP PO SCH (09:02)
[2016-07-05] MEDS: CLOZAPINE 100 MG TABLET PO SCH ×3 (09:02→20:28)
[2016-07-05] MEDS: ENOXAPARIN 30 MG/0.3 ML SYG SC SCH (09:04)
--- NOTE | 2016-07-05 14:55 | CONS ---
Date/Time of Note Date/Time of Note DATE: 07/05/16 TIME: 14:53 Consult Date/Type/Reason Admit Date/Time Jun 18, 2016 at 14:22 Subjective SUBJECTIVE: The patient is stable, no acute events overnight, no fevers, chills , nausea, vomiting, no shortness of breath. POC reviewed with brother and dr. kay. OBJECTIVE: HEENT: Head is normocephalic. NECK: Supple. HEART: Regular rate. LUNGS: Show diminished breath sounds at the base. ABDOMEN: Soft, nontender to palpation without rebound or guarding. EXTREMITIES: Negative for clubbing, cyanosis, no edema. DERMATOLOGIC: No rashes. MUSCULOSKELETAL: No joint effusions. NEUROLOGIC: No change in exam. Objective Vital Signs Date Time Temp Pulse Resp B/P Pulse Ox O2 Delivery O2 Flow Rate FiO2 07/05/16 08:04 99.5 89 18 97/57 98 07/04/16 20:00 Room Air Intake and Output 07/04/16 07/04/16 07/05/16 15:00 23:00 07:00 Intake Total 1180 ml 480 ml Output Total 1450 ml 1900 ml Balance -270 ml -1420 ml Results/Medications Result Diagram: 07/05/16 0430 07/05/16 0430 Results 24 hrs Laboratory Tests Test 07/05/16 04:30 07/05/16 07:45 Anion Gap 19 H Basophils # 0.1 Basophils % 0.6 Blood Morphology Comment Blood Urea Nitrogen 59 H Calcium Level 8.9 Carbon Dioxide Level 23 Chloride Level 104 Creatinine 3.52 H Eosinophils # 0.3 Eosinophils % 3.0 Glucose Level 103 Hematocrit 36.3 L Hemoglobin 11.8 L Lymphocytes # 3.0 H Lymphocytes % 27.9 Magnesium Level 2.6 H Mean Corpuscular Hemoglobin 28.9 L Mean Corpuscular Hemoglobin Concent 32.5 Mean Corpuscular Volume 88.8 Mean Platelet Volume 9.7 Monocytes # 0.7 Monocytes % 6.8 Neutrophils # 6.7 Neutrophils % 61.7 Nucleated Red Blood Cells # 0.0 Nucleated Red Blood Cells % 0.0 Phosphorus Level 4.4 Platelet Count 238 Potassium Level 3.7 Red Blood Count 4.08 L Red Cell Distribution Width 15.2 H Sodium Level 142 White Blood Count 10.9 H Lab Scanned Report REFERENCE LAB Medications Current Medications Ondansetron HCl (Zofran Inj) 4 mg Q6H PRN IV NAUSEA AND/OR VOMITING; Start at 18:00 Acetaminophen (Tylenol Tab) 650 mg Q6H PRN PO PAIN LEVEL 1-3 OR FEVER; Start 06/18/16 at 18:00 Acetaminophen/ Hydrocodone Bitart ([place] (5/325)) 1 tab Q6H PRN PO MODERATE PAIN LEVEL 4-6; Start 06/18/16 at 18:00 Morphine Sulfate (morphine) 2 mg Q4H PRN IV SEVERE PAIN LEVEL 7-10; Start at 18:00 Docusate Sodium (Colace) 200 mg Q12H PO Last administered on 07/05/16 05:58; Admin Dose 200 MG; Start 06/18/16 at 18:00 Atorvastatin Calcium (Lipitor) 10 mg QHS PO Last administered on 07/04/16 20:21 ; Admin Dose 10 MG; Start 06/18/16 at 21:00 Bisacodyl (Dulcolax Supp) 10 mg Q24H PRN [place] CONSTIPATION; Start 06/18/16 at 18 :00 Escitalopram Oxalate (Lexapro) 20 mg DAILY PO Last administered on 07/05/16 09: 02; Admin Dose 20 MG; Start 06/19/16 at 09:00 Gabapentin (Neurontin) 300 mg DAILY PO Last administered on 07/05/16 09:02; Admin Dose 300 MG; Start 06/19/16 at 09:00 Mineral Oil (Fleet Mineral Oil Enema) 133 ml DAILY PRN [place] CONSTIPATION; Start 06/18/16 at 18:00 Polyethylene Glycol (Miralax) 17 gm DAILY PO Last administered on 07/04/16 08: 46; Admin Dose 17 GM; Start 06/18/16 at 18:00 Multivit/Ca Carb/ B Cmplx/FA/Prenat ([place]) 1 tab DAILY PO Last administered on 07/05/16 09:02; Admin Dose 1 TAB; Start 06/19/16 at 15:00 Clozapine (Clozaril) 225 mg QAM PO Last administered on 07/05/16 09:02; Admin Dose 225 MG; Start 06/20/16 at 09:00; Status Future hold Enoxaparin Sodium (Lovenox) 30 mg DAILY SC Last administered on 07/05/16 09:04 ; Admin Dose 30 MG; Start 06/25/16 at 10:30 Amiloride HCl (Midamor) 5 mg DAILY PO Last administered on 06/29/16at 09:37; Admin Dose 5 MG; Start 06/26/16 at 09:00 Lactobacillus Acidophilus/ Rhamnosus (Culturelle) 1 cap BID PO Last administered on 07/05/16 09:02; Admin Dose 1 CAP; Start 06/26/16 at 12:00 Lorazepam (Ativan) 0.5 mg Q8H PRN PO ANXIETY Last administered on 07/04/16 05: 36; Admin Dose 0.5 MG; Start 06/28/16 at 19:30 Hydrochlorothiazide (Hydrochlorothiazide) 12.5 mg DAILY@06 PO Last administered on 07/04/16 05:36; Admin Dose 12.5 MG; Start 06/30/16 at 06:00 Clozapine (Clozaril) 250 mg QHS PO Last administered on 07/04/16 20:22; Admin Dose 250 MG; Start 06/30/16 at 21:00 Assessment/Plan Chief Complaint/Hosp Course ASSESSMENT AND PLAN: 1. Nonoliguric acute kidney injury on top of chronic kidney disease stage IV. Etiology of acute kidney injury is secondary to hemodynamics. Renal function appears to have stabilized. Creatinine 3.5 mg/dL. Plan at this point is to continue current treatment plan. Continue supportive care, renally dose meds, avoid nephrotoxins. I did speak again with the patient's family, which did state the patient's family have changed their mind and states that they wish to pursue dialysis once the need arise. The patient's current EGFR is around 20 mL per minute. At this point will continue to monitor. No overt signs of uremia. 2. History of nephrogenic diabetes insipidus, improved. The patient is on low- dose hydrochlorothiazide, will continue. 3. Chronic kidney disease, stage IIIB/IV secondary to chronic lithium use. Continue to monitor. Continue treat acute kidney injury as stated above. 4. Mineral bone disorder, monitor calcium and phosphorous levels. 5. Hypokalemia, improved. 6. Anemia. Continue to monitor hemoglobin and hematocrit levels. 7. Sepsis secondary to urinary tract infection. Continue current antibiotic regimen. 8. Schizophrenia, psychosis, continue to monitor. Follow up with psychiatry. 9. Urinary retention. The patient is receiving intermittent catheterization. Follow up with urology. Consider possible Samuel catheter placement. Problems: DIMLPE CHAVEZ MD Jul 05, 2016 14:55
[2016-07-05] MEDS ORDERED: CLZP100T PO (15:38)
[2016-07-05] MEDS ORDERED: CLOZ25TA23 PO (15:38)
[2016-07-05 20:23] VITALS: BP 95/56; RESP 18
[2016-07-05] MEDS: ATORVASTATIN 10 MG TAB PO SCH (20:28)
== END 2016-07-05 20:55 | DRG 872 ==
LOC: E/R 11:40 → MS4 14:22 → PP2 06-21 19:11
PROVIDERS: ADMIT Family Medicine; ATTEND Family Medicine
DX: A41.59 Other Gram-negative sepsis (principal); E23.2 Diabetes insipidus; N17.9 Acute kidney failure, unspecified; N18.4 Chronic kidney disease, stage 4 (severe); I95.9 Hypotension, unspecified; E87.0 Hyperosmolality and hypernatremia; N30.00 Acute cystitis without hematuria; F20.89 Other schizophrenia; R65.20 Severe sepsis without septic shock; D63.8 Anemia in other chronic diseases classified elsewhere; R33.9 Retention of urine, unspecified; F29 Unspecified psychosis not due to a substance or known physiological condition; E03.9 Hypothyroidism, unspecified; I12.9 Hypertensive chronic kidney disease with stage 1 through stage 4 chronic kidney disease, or unspecified chronic kidney disease; E86.0 Dehydration; B96.89 Other specified bacterial agents as the cause of diseases classified elsewhere; R41.0 Disorientation, unspecified; L81.4 Other melanin hyperpigmentation
CPT/HCPCS: 70450; 71010; 76775; 80048; 80053; 81001; 81003; 82043; 82962; 83036; 83605; 83735; 83930; 83935; 84100; 84155; 84300; 84443; 84484; 85025; 85610; 85730; 86704; 86709; 86803; 87040; 87081; 87086; 87340; 90686; 93005; 93306; 93880; 96374; 96375; 97001; 97110; 97116; 97530; A4310; G0478; G0479; J0696; J1650; J3370; J7030; J7070